=== PATIENT | female | born 1935 | race Hispanic/Latino ===

== ENCOUNTER → 2018-07-28 | Day surgery (SDC) | payer MEDICARE ==
[2018-07-27 10:46] LABS: BASOPHILS # (AUTO) 0.1 (0.0-0.1); BASOPHILS % 0.7 % (0.0-1.0); EOSINOPHILS # (AUTO) 0.5 (0.0-0.4); EOSINOPHILS % 4.9 % (0.0-6.0); HEMATOCRIT 33.7 % (34.2-44.1); HEMOGLOBIN 10.8 g/dL (12.0-16.0); LYMPHOCYTES # (AUTO) 2.5 (1.0-3.2); MEAN CORPUSCULAR HEMOGLOBIN 28.3 pg (28-32); MEAN CORPUSCULAR VOLUME 88.5 fL (81-99); MONOCYTES # (AUTO) 0.7 (0.2-0.8); MONOCYTES % 7.7 % (4.4-11.3); NEUTROPHILS # (AUTO) 5.5 (2.1-6.9); NEUTROPHILS % 59.4 % (38.7-80.0); PLATELET COUNT 304 x10e3/uL (140-360); RED BLOOD COUNT 3.81 x10e6/uL (3.6-5.1)
[2018-07-27 11:08] LABS: ANION GAP 12.2 mmol/L (8-16); BLOOD UREA NITROGEN 17 mg/dL (7-26); BUN/CREATININE RATIO 22 (6-25); CARBON DIOXIDE 27 mmol/L (22-29); CHLORIDE 102 mmol/L (98-107); CREATININE, SERUM 0.78 mg/dL (0.57-1.11); EST GLOMERULAR FILTRATION RATE > 60 ML/MIN (60-); GLUCOSE 98 mg/dL (74-118); POTASSIUM 4.2 mmol/L (3.5-5.1); SODIUM 137 mmol/L (136-145)
--- NOTE | 2018-07-27 11:18 | Diagnostic Imaging Report ---
EXAMINATION: PA and lateral views of the chest. COMPARISON: None CLINICAL HISTORY: Preoperative evaluation, carpal tunnel surgery DISCUSSION: Lines/tubes: None. Lungs: The lungs are well inflated and clear. No pneumonia or pulmonary edema. Pleura: No pleural effusion or pneumothorax. Heart and mediastinum: The cardiomediastinal silhouette is normal. Bones and soft tissues: No acute bony abnormalities. IMPRESSION: No acute cardiopulmonary abnormalities. Signed by: Dr. Frank Higgins M.D. on 07/27/2018 11:15 AM
[~2018-07-28] MED LIST: BUPIVACAINE HCL 0.5% INJ 30 ML VIAL INJ ONE; CEFAZOLIN SOD 1 GM/NS 50ML 50 ML IV ONE; KETOROLAC TROMETHAMINE 30 MG/ML VIAL ONE; LIDOCAINE HCL 2% LOCAL INJ 5 ML SDV VIAL INJ ONE; MUPIROCIN 2% OINT 22 GM TUBE ONE; NITROFURANTOIN50 MG PO; OMEPRAZOLE40 MG PO; ONDANSETRON HCL INJ 2MG/ML 2ML 2 MG/ML VIAL ONE; PHENAZOPYRIDIN100 MG PO; PROPOFOL IV EMULSION 10 MG/ML 20 ML VIAL ONE; SEVOFLURANE INHAL SOLN 250 ML PEN BTL ONE; Z.0.FLUTICASONE PRO1; Z.0.SIMVASTATIN10 MG PO; Z.2.METFORMIN HCL500 PO; [UNRECOGNIZED DRUG - OTHER] PO; [UNRECOGNIZED DRUG - OTHER] PO
--- OUTSIDE RECORDS SUMMARY | 2018-07-28 05:58 | XMS REPORT ---
Author [facility] Address Unknown Phone Unavailable Care Team Providers Care Manager Beauty Name Role Phone ARDEN LANDIN Unavailable Unavailable Problems This patient has no known problems. Allergies, Adverse Reactions, Alerts This patient has no known allergies or adverse reactions. Medications This patient has no known medications. Results Test Description Test Time Test Comments Text Results Atomic Results Result Comments CHEST 2 VIEWS 2018-07-27 11:15:00 [place] [address] Patient Name: ROGELIO GALAN MR #: [id number] : 1935 Age/Sex: 83/F Req #: [id number] [facility] Physician: Ordered by: ARDEN LANDIN MD Report #: [id number] Location: OR Room/Bed: Procedure: [id number] DX/CHEST 2 VIEWS Exam Date: 07/27/18 Exam Time: 1040 REPORT STATUS: Signed EXAMINATION: PA and lateral views of the chest. CO MPARISON: None CLINICAL HISTORY: Preoperative evaluation, carpal tunnel surgery DISCUSSION: Lines/tubes: None. Lungs: The lungs are well inflated and clear. No pneumonia or pulmonary edema. Pleura: No pleural effusion or pneumothorax. Heart and mediastinum: The cardiomediastinal silhouette is normal. Bones and soft tissues: No acute bony abnormalities. IMPRESSION: No acute cardiopulmonary abnormalities. Signed by: Dr. Ortega Grant M.D. on 07/27/2018 11:15 AM Dictated By: ORTEGA GRANT MD 14 Transcribed By: MEIR on 07/27/181114 COPY TO: ARDEN LANDIN MD
[2018-07-28 08:25] VITALS: BP 154/76
--- NOTE | 2018-07-28 18:16 | Operative Report ---
DATE OF PROCEDURE: 07/28/2018 SURGEON: Raymond Fan MD PREOPERATIVE DIAGNOSIS: Left hand carpal tunnel syndrome. POSTOPERATIVE DIAGNOSES: 1. Left hand carpal tunnel syndrome. 2. Flexor tenosynovitis, left wrist. PROCEDURE: 1. Left hand open carpal tunnel release. 2. Flexor tenosynovectomy, left wrist. ANESTHESIA: General. HISTORY: The patient is an 83-year-old with EMG-proven left hand carpal tunnel syndrome. Risks, benefits and alternatives of treatment were discussed with the patient. The patient is prepared to undergo the procedure as outlined. DESCRIPTION OF PROCEDURE: The patient was brought to the operating theater. After the induction of adequate general inhalation anesthesia, the patient was prepped and draped in the supine position. A time out was performed by the entire operating room team. A 2.5 cm incision was marked out in the intrathenar space. The left upper extremity was exsanguinated, and a tourniquet was inflated to a pressure of 250 mmHg. The incision was made through the skin and subcutaneous tissues and all venous tributaries were controlled with bipolar cautery. The incision was deepened through the palmar fascia until the transverse carpal ligament was identified. The ligament was sharply sectioned, taking care to protect and preserve the median nerve underlying it. After the complete width of the ligament had been transected, the distal volar forearm fascia was divided under direct view. Proliferative flexor tenosynovium was noticed to encompass the median nerve and this was radically excised. After performing this maneuver, the nerve was noted to lie adequately decompressed. The wound was copiously irrigated with bacteriostatic saline, closed with 5-0 nylon in an interrupted horizontal mattress fashion. A Marcaine field block was performed at the operative site. Tourniquet was deflated. All of the fingers pinked up nicely and a sterile bulking conforming bandage was applied to the hand and the wrist. A fiberglass splint was fashioned to maintain the wrist in a modest amount of extension. This was held in place with a loosely wrapped Jalen wrap. The patient tolerated the procedure well and was brought to the recovery room in satisfactory condition and discharged with a postoperative instruction sheet as well as a followup appointment. MD AUBREY Zheng/MODL /[id number]
== END | disposition home or self-care (01) ==
LOC: OR 05:56
PROVIDERS: ATTEND Plastic Surgery
DX: I10 Essential (primary) hypertension (principal); E78.5 Hyperlipidemia, unspecified; E11.9 Type 2 diabetes mellitus without complications; Z79.84 Long term (current) use of oral hypoglycemic drugs; Z88.6 Allergy status to analgesic agent; Z91.041 Radiographic dye allergy status; F17.200 Nicotine dependence, unspecified, uncomplicated
CPT/HCPCS: 36415 ×2; 64721; 71046; 80048; 82948; 85025; 93005; J0690; J1885; J2001; J2405; J2704

== ENCOUNTER 2018-09-07 18:21 | Emergency (ER) | payer MEDICARE ==
[~2018-09-07 18:21] MED LIST changes: -BUPIVACAINE HCL 0.5% INJ 30 ML VIAL INJ ONE; -CEFAZOLIN SOD 1 GM/NS 50ML 50 ML IV ONE; -KETOROLAC TROMETHAMINE 30 MG/ML VIAL ONE; -LIDOCAINE HCL 2% LOCAL INJ 5 ML SDV VIAL INJ ONE; -MUPIROCIN 2% OINT 22 GM TUBE ONE; -ONDANSETRON HCL INJ 2MG/ML 2ML 2 MG/ML VIAL ONE; -PROPOFOL IV EMULSION 10 MG/ML 20 ML VIAL ONE; -SEVOFLURANE INHAL SOLN 250 ML PEN BTL ONE
== END 2018-09-07 18:42 | disposition short-term general hospital (02) ==
LOC: ER 18:21
DX: G40.409 Other generalized epilepsy and epileptic syndromes, not intractable, without status epilepticus (principal)

== ENCOUNTER 2018-09-07 18:50 | Emergency (ER) | payer OTHER, MEDICARE | END 2018-09-07 19:30 | disposition left against medical advice (07) | LOC: FSED 18:50 | DX: R69 Illness, unspecified (principal) ==

== ENCOUNTER 2018-10-14 17:19 | Inpatient (IN) | payer MEDICARE, OTHER ==
[~2018-10-14] VITALS: Ht 157.5 cm; Wt 59.9 kg
--- OUTSIDE RECORDS SUMMARY | 2018-10-14 17:24 | XMS REPORT | Continuity of Care Document ---
Author Author [facility] Interface Address Unknown Phone Unavailable Problems Problem Status Onset Date Classification Date Reported Comments Source Medications Medication Details Route Status Patient Instructions Ordering Provider Order Date Source Nitrofurantoin Macrocrystal (Nitrofurantoin) 50 Mg Capsule, 50 Mg Oral Daily Active 07/27/2018 [facility] Phenazopyridine Hcl 100 Mg Tablet, 100 Mg Oral Three Times A Day Active 07/27/2018 [facility] Fluticasone Propionate 16 Gm [place].susp As Needed as needed for Allergy Active [facility] Glipizide (Glipizide Xl) 2.5 Mg Tab.osm.24 Daily Active [facility] Metformin Hcl 500 Mg Tablet Twice A Day Active [facility] Omeprazole 40 Mg Capsule.dr Daily Active [facility] Quinapril Hcl 20 Mg Tablet Daily Active [facility] Simvastatin 10 Mg Tablet Daily Active [facility] Allergies, Adverse Reactions, Alerts Substance Category Reaction Severity Reaction type Status Date Reported Comments Source Iodine HIVES Mild Allergy to Substance Active 11/07/2013 [facility] Ibuprofen LIVER PROBLEMS Mild Allergy to Substance Active 11/07/2013 [facility] Immunizations Immunization Date Given Site Status Last Updated Comments Source Results Order Name Results Value Reference Range Date Interpretation Comments Source Capillary blood glucose measurement by glucometer (mass/volume) 95 70 - 120 07/28/2018 [facility] Blood leukocytes automated count (number/volume) 9.20 4.8 - 10.8 07/27/2018 [facility] Blood erythrocytes automated count (number/volume) 3.81 3.6 - 5.1 07/27/2018 [facility] Blood hemoglobin measurement (moles/volume) 10.8 12.0 - 16.0 07/27/2018 [facility] Automated blood hematocrit (volume fraction) 33.7 34.2 - 44.1 07/27/2018 [facility] Automated erythrocyte mean corpuscular volume 88.5 81 - 99 07/27/2018 [facility] Automated erythrocyte mean corpuscular hemoglobin (mass per erythrocyte) 28.3 28 - 32 07/27/2018 [facility] Automated erythrocyte mean corpuscular hemoglobin concentration measurement (mass/volume) 32.0 31 - 35 07/27/2018 [facility] RDW BldCo-Rto 13.0 11.7 - 14.4 07/27/2018 [facility] Automated blood platelet count (count/volume) 304 140 - 360 07/27/2018 [facility] Automated blood segmented neutrophil count as percentage of total leukocytes 59.4 38.7 - 80.0 07/27/2018 [facility] Automated blood lymphocyte count as percentage ot total leukocytes 27.0 18.0 - 39.1 07/27/2018 [facility] Automated blood monocyte count as percentage of total leukocytes 7.7 4.4 - 11.3 07/27/2018 [facility] Automated blood eosinophil count as percentage of total leukocytes 4.9 0.0 - 6.0 07/27/2018 [facility] Automated blood basophil count as percentage of total leukocytes 0.7 0.0 - 1.0 07/27/2018 [facility] IM GRANULOCYTES % 0.3 0.0 - 1.0 07/27/2018 [facility] Automated blood neutrophil count 5.5 2.1 - 6.9 07/27/2018 [facility] Blood lymphocytes count (number/volume) 2.5 1.0 - 3.2 07/27/2018 [facility] Blood monocytes automated count (number/volume) 0.7 0.2 - 0.8 07/27/2018 [facility] Automated blood eosinophil count 0.5 0.0 - 0.4 07/27/2018 [facility] Automated blood basophil count (count/volume) 0.1 0.0 - 0.1 07/27/2018 [facility] Absolute Immature Granulocyte (auto 0.03 0 - 0.1 07/27/2018 [facility] Serum or plasma sodium measurement (moles/volume) 137 136 - 145 07/27/2018 [facility] Serum or plasma potassium measurement (moles/volume) 4.2 3.5 - 5.1 07/27/2018 [facility] Serum or plasma chloride measurement (moles/volume) 102 98 - 107 07/27/2018 [facility] Serum or plasma carbon dioxide, total measurement (moles/volume) 27 22 - 29 07/27/2018 [facility] Serum or plasma anion gap 12.2 8 - 16 07/27/2018 [facility] Serum or plasma urea nitrogen measurement (mass/volume) 17 7 - 26 07/27/2018 [facility] Serum or plasma creatinine measurement (mass/volume) 0.78 0.57 - 1.11 07/27/2018 [facility] Serum or plasma urea nitrogen/creatinine mass ratio 22 6 - 25 07/27/2018 [facility] Estimated glomerular filtration rate (GFR) determination > 60 60 07/27/2018 [facility] Glucose measurement 98 74 - 118 07/27/2018 [facility] Serum or plasma calcium measurement (mass/volume) 10.0 8.4 - 10.2 07/27/2018 [facility] Vital Signs Vital Sign Value Date Comments Source Encounters Location Location Details Encounter Type Encounter Number Reason For Visit Attending Provider ADM Date DC Date Status Source Registered Surgical Day Care [id number] ARDEN LANDIN MD 07/28/2018 [facility] Departed Emergency Room [id number] RINA SALMON MD 09/07/2018 09/07/2018 [facility] Departed Emergency Room [id number] ОЛЕГ MARTIN MD 09/07/2018 09/07/2018 [facility] Procedures Procedure Code Date Perfomer Comments Source CARPAL TUNNEL SURGERY [id number] 07/28/2018 [facility] X-ray of chest, two views [id number] 07/27/2018 [facility]
[2018-10-14] MEDS ORDERED: SODIUM CHLORIDE 0.9% 500ML 500 ML IV STA (18:08)
[2018-10-14] MEDS ORDERED: ACETAMINOPHEN 325 MG TAB PO ONE (18:15)
[2018-10-14 18:40] LABS: BASOPHILS # (AUTO) 0.1 (0.0-0.1); BASOPHILS % 0.3 % (0.0-1.0); EOSINOPHILS % 0.2 % (0.0-6.0); HEMATOCRIT 31.8 % (34.2-44.1); HEMOGLOBIN 10.4 g/dL (12.0-16.0); LYMPHOCYTES # (AUTO) 1.2 (1.0-3.2); LYMPHOCYTES % 6.3 % (18.0-39.1); MEAN CORPUSCULAR HEMOGLOBIN 28.1 pg (28-32); MEAN CORPUSCULAR HGB CONC 32.7 g/dL (31-35); MEAN CORPUSCULAR VOLUME 85.9 fL (81-99); MONOCYTES # (AUTO) 1.4 (0.2-0.8); MONOCYTES % 7.5 % (4.4-11.3); NEUTROPHILS # (AUTO) 15.7 (2.1-6.9); PLATELET COUNT 257 x10e3/uL (140-360); RED CELL DISTRIBUTION WIDTH 13.4 % (11.7-14.4)
[2018-10-14 18:46] LABS: STREPTOCOCCUS GRP A ANTIGEN NEGATIVE (NEGATIVE)
[2018-10-14 18:47] LABS: INR 1.16; PROTHROMBIN TIME 15.4 seconds (11.9-14.5)
[2018-10-14 18:57] LABS: INFLUENZAE A&B ANTIGEN (RAPID) NEGATIVE (NEGATIVE)
--- NOTE | 2018-10-14 18:58 | Diagnostic Imaging Report ---
History:Fall Comparison studies: None Technique: Axial images were obtained from the skull base to the vertex. Coronal and sagittal images reconstructed from the axial data. Dose modulation, iterative reconstruction, and/or weight based adjustment of the mA/kV was utilized to reduce the radiation dose to as low as reasonably achievable. Intravenous contrast: None Findings: Scalp/skull: No abnormalities. Extra-axial spaces: No masses. No fluid collections. Brain sulci: Mildly prominent. Ventricles: Mild compensatory dilatation. No hydrocephalus. Parenchyma: Subtle hypodensities in the supratentorial white matter are small vessel ischemic changes. No masses, hemorrhage, acute or chronic cortical vascular insults. Sellar/suprasellar region: No abnormalities. Craniocervical junction: Patent foramen magnum. No Chiari one malformation. Incidental findings: Atherosclerotic calcifications in the carotid siphons and right vertebral artery. Impression: No acute abnormalities. Chronic findings: 1. Mild generalized volume loss. 2. Mild supratentorial white matter small vessel ischemic changes. Signed by: Dr. Bradley Coker M.D. on 10/14/2018 6:55 PM
[2018-10-14 19:00] LABS: ALANINE AMINOTRANSFERASE 13 IU/L (0-55); ALBUMIN 3.7 g/dL (3.5-5.0); ALBUMIN/GLOBULIN RATIO 0.9 (0.8-2.0); ALKALINE PHOSPHATASE 65 IU/L (40-150); AMYLASE 78 U/L (25-125); ANION GAP 14.5 mmol/L (8-16); BLOOD UREA NITROGEN 15 mg/dL (7-26); BUN/CREATININE RATIO 17 (6-25); CALCIUM 9.9 mg/dL (8.4-10.2); CARBON DIOXIDE 25 mmol/L (22-29); CHLORIDE 98 mmol/L (98-107); CREATINE KINASE 628 IU/L (29-168); CREATININE, SERUM 0.88 mg/dL (0.57-1.11); EST GLOMERULAR FILTRATION RATE > 60 ML/MIN (60-); GLUCOSE 131 mg/dL (74-118); LIPASE 10 U/L (8-78); POTASSIUM 3.5 mmol/L (3.5-5.1); SODIUM 134 mmol/L (136-145)
[2018-10-14 19:08] LABS: B-TYPE NATRIURETIC PEPTIDE2 93.8 pg/mL (0-100)
--- NOTE | 2018-10-14 19:13 | Diagnostic Imaging Report ---
Frontal and lateral views of the chest. HISTORY: fall, tender to anterior chest wall along costal margins COMPARISON: Chest radiographs July 27, 2018 DISCUSSION: Overlying monitoring leads and other artifacts. Lungs: The lungs are well inflated. No evidence of a consolidative pneumonia or pulmonary alveolar edema. Pleura: No pleural effusion or pneumothorax. Heart and mediastinum: The cardiomediastinal silhouette appears unremarkable. Bones and soft tissues: Diffusely decreased mineralization of the osseous structures limits bone detail. Stable appearing mild accentuation of the thoracic kyphosis and multilevel mild to moderate degenerative changes. Metallic clips in the right upper quadrant of the abdomen are compatible with prior cholecystectomy. IMPRESSION: 1. No acute radiographic abnormality. 2. No significant interval change. 3. Specifically, no evidence of a displaced fracture or pneumothorax. Signed by: Dr. Braulio Bowden D.O., M.M.M. on 10/14/2018 7:09 PM
[2018-10-14 19:54] LABS: CLARITY,URINE CLOUDY (CLEAR); COLOR,URINE STRAW (YELLOW); LEUKOCYTE ESTERASE ,URINE 2+ (NEGATIVE); NITRITE,URINE NEGATIVE (NEGATIVE); PROTEIN,URINE DIPSTICK 2+ (NEGATIVE)
[2018-10-14 19:55] LABS: BILIRUBIN,URINE NEGATIVE (NEGATIVE); KETONES,URINE NEGATIVE (NEGATIVE); URINE UROBILINOGEN 0.2 mg/dL (0.2 - 1)
[2018-10-14] MEDS ORDERED: DIATRIZOATE MEGL/DIATRIZOA SOD 30 ML BTL PO ONE (20:06)
[2018-10-14 20:07] LABS: BACTERIA,URINE MANY /HPF; WBC,URINE (MAN) 21-50 /HPF (0-5)
[2018-10-14] MEDS ORDERED: CEFTRIAXONE SOD 1 GM/NS 50 ML 50 ML IV ONE (20:30)
[2018-10-14] MEDS ORDERED: DEXTROSE 50% SYRINGE 50 ML IV PRN (21:15)
[2018-10-14] MEDS: CEFTRIAXONE SOD 1 GM/NS 50 ML 50 ML IV SCH (21:30)
--- NOTE | 2018-10-14 21:45 | Diagnostic Imaging Report ---
ADDENDUM #1 Addendum to Impression: Mild circumferential bladder wall thickening. No surrounding stranding. Correlate with urinalysis for cystitis. Signed by: Dr. Dusty Buenrostro M.D. on 10/14/2018 9:52 PM ORIGINAL REPORT EXAMINATION: CT of the abdomen and pelvis without contrast. TECHNIQUE: Spiral CT images of the abdomen and pelvis were performed from the lung bases to the lesser trochanters. No intravenous contrast was given due to history of iodine allergy. Oral Gastroview was given. Coronal and sagittal reformatted images were obtained. COMPARISON: None. CLINICAL HISTORY:Abdominal pain, fever since today DISCUSSION: ABSENCE OF INTRAVENOUS CONTRAST DECREASES SENSITIVITY FOR DETECTION OF FOCAL LESIONS AND VASCULAR PATHOLOGY. ABDOMEN/PELVIS: LOWER THORAX: Mild bilateral lower lobe dependent atelectasis. Atherosclerotic calcification of the aortic valve, coronary arteries and thoracic aorta. Moderate hiatal hernia. HEPATOBILIARY: No focal hepatic lesions. No intra or extrahepatic biliary ductal dilation. GALLBLADDER: Cholecystectomy clips SPLEEN: No splenomegaly. PANCREAS: No focal masses or ductal dilatation. Mild pancreatic atrophy ADRENALS: No adrenal nodules. KIDNEYS/URETERS: 2 mm nonobstructing calculus in the right mid to inferior aspect (series 2, image 36). A punctate calcification in the left renal sinus at the interpolar region (series 2, image 31 and coronal image 46) likely represents a nonobstructing calculus and less likely a vascular calcification. No ureteral calculi. No hydronephrosis. Multiple bilateral ill-defined hypodense fluid density lesions, with the largest on the right measuring approximately 2.3 cm in the mid to inferior aspect (coronal image 51), and the largest on the left measuring approximately 3.1 cm (series 2, image 26) in the superior pole, likely representing simple cysts. 0.6 cm hyperdense cortical lesion in the mid posterior right kidney (series 2, image 33), which is to small to characterize but likely represents a hemorrhagic or proteinaceous cyst. No significant perinephric stranding. PELVIC ORGANS/BLADDER: Mild bladder wall thickening. No focal lesions. Uterus is not visualized. No adnexal masses. PERITONEUM/RETROPERITONEUM: No free air or fluid. LYMPH NODES: No intra-abdominal,retroperitoneal, pelvic or inguinal lymphadenopathy. VESSELS: Atherosclerotic calcification of the abdominal aorta and iliac vessels. GI TRACT: No bowel dilation or evidence of obstruction. No pericolonic inflammatory changes. Descending and sigmoid colon diverticulosis, without surrounding inflammatory changes to suggest diverticulitis. Stomach is grossly unremarkable. BONES AND SOFT TISSUES: No evidence of lytic lesions. Generalized osteopenia. Degenerative disc changes in the lower thoracic and lumbosacral spine, worse at L4-L5. Fat-containing left inguinal hernia. IMPRESSION: 1. No acute abdominopelvic abnormalities in this noncontrast exam. 2. 2 mm nonobstructing calculus in the right kidney. Punctate nonobstructing calculus in the left kidney. No ureteral calculi, hydronephrosis or obstruction. 3. Descending and sigmoid colon diverticulosis, without diverticulitis. No bowel dilation or evidence of obstruction.. Signed by: Dr. Dusty Buenrostro M.D. on 10/14/2018 9:42 PM
[2018-10-14] MEDS: SODIUM CHLORIDE 0.9% 1000ML 1,000 ML IV SCH (21:50)
[2018-10-14 21:56] LABS: CLARITY,URINE SL CLOUDY (CLEAR); COLOR,URINE YELLOW (YELLOW)
[2018-10-14 21:57] LABS: BILIRUBIN,URINE NEGATIVE (NEGATIVE); KETONES,URINE NEGATIVE (NEGATIVE); LEUKOCYTE ESTERASE ,URINE 2+ (NEGATIVE); NITRITE,URINE NEGATIVE (NEGATIVE); PROTEIN,URINE DIPSTICK 2+ (NEGATIVE); URINE UROBILINOGEN 0.2 mg/dL (0.2 - 1)
[2018-10-14 22:39] VITALS: BP 142/72
[2018-10-14 22:40] LABS: WBC,URINE (MAN) >50 /HPF (0-5)
[2018-10-14 22:41] LABS: BACTERIA,URINE MANY /HPF; EPITHELIAL CELLS,URINE RARE /LPF; TRANSITIONAL EPI CELLS,URINE FEW
[2018-10-14 22:42] LABS: RBC,URINE 21-50 /HPF (0-5)
[2018-10-14 23:02] VITALS: BP 142/72
[2018-10-14] MEDS: ONDANSETRON HCL INJ 2MG/ML 2ML 2 MG/ML VIAL IV PRN (23:24)
[2018-10-14] MEDS: ACETAMINOPHEN 325 MG TAB PO PRN (23:40)
--- NOTE | 2018-10-14 23:40 | NUR ---
UPON ASSESSMENT OF PATIENT SHE RAN A FEVER OF 100.6. THE PATIENT COMPLAINED OF CHILLS AND BEGAN SHIVERING. PROVIDED THE PATIENT WITH TWO WARM BLANKETS AND GAVE THE PATIENT TYLENOL TO REDUCE THE FEVER. THE PATIENT ALSO PREVIOUSLY FELT NAUSEA AND BEGAN TO VOMIT, PROVIDED ZOFRAN. THE PATIENT IS RESTING COMFORTABLY RIGHT NOW WILL REASSESS THE PATIENT'S CONDITION.
[2018-10-15] VITALS (8 sets, daily range): BP systolic 111–161; BP diastolic 59–74
--- NOTE | 2018-10-15 00:45 | NUR ---
RECHECKED PATIENT'S TEMPERATURE AND THE READING HAD RISEN 102.3 AFTER TAKING TYLENOL. IMMEDIATELY TRIED TO COOL THE PATIENT OFF WITH A COOL SHOWER. DRIED HER OFF COVERED HER IN SHEETS, SUPPLIED THE PATIENT WITH ICE PACKS ON BODY. PATIENT IS NO RESTING, NO LONGER SHIVERING, NO MORE COMPLAINTS OF NAUSEA. CALL LIGHT WITHIN EASY REACH, BED LOCKED AND LOW WILL CONTINUE TO MONITOR AND RECHECK TEMPERATURE.
--- NOTE | 2018-10-15 01:25 | NUR ---
RECHECKED PATIENTS TEMPERATURE, IT NOW READS 97.6. PATIENT IS RESTING COMFORTABLY AND STABLE, NO DISTRESS NOTED, NO LONGER SHIVERING. CALL LIGHT IS WITHIN EASY REACH, WILL CONTINUE TO MONITOR.
--- NOTE | 2018-10-15 04:31 | NUR ---
AFTER REASSESSING THE PATIENT FOR 04:00 VITALS, SHE IS READING A TEMPERATURE OF 97.5. SHE IS RESTING COMFORTABLY WITH EYES CLOSED, NO DISTRESS NOTED. BED LOCKED AND ALARM ACTIVATED, CALL LIGHT WITHIN EASY REACH, WILL CONTINUE TO MONITOR.
[2018-10-15] MEDS: INSULIN REGULAR, HUMAN 100 UNIT/1 ML 3ML VIAL SQ SCH ×4 (07:30→20:06)
[2018-10-15] MEDS: CEFTRIAXONE SOD 1 GM/NS 50 ML 50 ML IV SCH ×2 (08:49→20:18)
[2018-10-15] MEDS: ONDANSETRON HCL INJ 2MG/ML 2ML 2 MG/ML VIAL IV PRN ×2 (10:21→20:18)
--- NOTE | 2018-10-15 10:31 | NUR ---
On bladder scan 610 ml of urine noted.
--- NOTE | 2018-10-15 10:41 | NUR ---
patient tolerated with indwelling Figueroa's catheter, 600ml of urine output noted, figueroa secured well
--- NOTE | 2018-10-15 11:59 | History and Physical ---
CHIEF COMPLAINT: Status post fall, recurrent urinary tract infection, generalized body ache and pain. SUMMARY: The patient is an 83-year-old female, stating that the patient lives by herself. She had recurrent urinary tract infection. The patient had multiple falls at home, came to the hospital with some altered mental status. The patient is otherwise stable at this time. No loss of consciousness. CT scan of the abdomen and pelvis was done, show nonobstructive kidney stone, diverticulosis without any acute findings. No hydronephrosis. The patient also had a CT scan of the brain, there was no injury. The patient move all extremities. She is stable. PAST MEDICAL HISTORY: Dyslipidemia; diabetes type 2, on oral medication; hypertension. Recurrent urinary tract infection. PAST SURGICAL HISTORY: Hysterectomy, back surgery, knee surgery, tonsillectomy, cholecystectomy. SOCIAL HISTORY: The patient stated that she lives by herself. She does not smoke or use alcohol. No recreational drug use. ALLERGIES: IBUPROFEN AND IODINE. HOME MEDICATIONS: List reviewed. REVIEW OF SYSTEMS: Some confusion, but no chest pain, no shortness of breath. Generalized body ache and pain. PHYSICAL EXAMINATION: VITAL SIGNS: Temperature is 97, blood pressure 128/72, pulse rate is 98, respirations 18. GENERAL: The patient is not in acute distress. She is awake. HEENT: Normocephalic, atraumatic. Anicteric. NECK: Supple grossly. PULMONARY: Clear. CARDIOVASCULAR: Regular rate and rhythm. ABDOMEN: Soft. Some discomfort in the suprapubic area, possible urinary retention. EXTREMITIES: No cyanosis or edema. NEUROLOGIC: Moving all extremities, some confusion, without any focal deficit. LABORATORY DATA: Sodium is 134, potassium 3.5, chloride 98, bicarb 25, BUN 15, creatinine 0.8, glucose 131. CK is 628. WBC is 18.5, hemoglobin 10.4, hematocrit 31.8, and platelets is 257. CT scan of abdomen and pelvis, no acute finding. Nonobstructive kidney stone. Renal cyst. Diverticulosis. IMPRESSION: 1. Sepsis with urinary tract infection with altered mental status, status post fall, possible urinary retention. 2. Leukocytosis and fever. 3. Mild rhabdomyolysis, most likely from the fall. PLAN: Continue with IV antibiotics, IV fluids. Urinary bladder scan and possible Baron catheter. Consultation with Dr. Neal Ayala. PT/OT. Continue with some of the home medication. We will repeat the patient's lab work in the morning. Continue IV fluids for now. MD DESIRAE Toribio/ANAHI /[id number] cc: John Dowd
[2018-10-15] MEDS: ACETAMINOPHEN 325 MG TAB PO PRN ×2 (12:09→20:18)
--- NOTE | 2018-10-15 19:00 | NUR ---
received report from day nurse. patient is resting in bed. denies pain or discomfort. daughter is by the patient's bedside. patient has an indwelling catheter. figueroa is patient and urine is flowing. will continue to monitor patient's care.
--- NOTE | 2018-10-15 20:00 | NUR ---
patient's temperature is 101.7. will medicate patient with tylenol.
[2018-10-15] MEDS: SODIUM CHLORIDE 0.9% 1000ML 1,000 ML IV SCH ×2 (20:02→23:49)
[2018-10-15] MEDS: SIMVASTATIN 20 MG TAB PO SCH (20:18)
--- NOTE | 2018-10-15 22:45 | NUR ---
patient's temperature has been re-assessed and found to be 96.5. patient denies any discomfort. will continue to monitor patient's temperature.
--- NOTE | 2018-10-15 23:01 | Consultation ---
DATE OF CONSULTATION: 10/15/2018 Urology Consultation REASON FOR CONSULTATION: Recurrent urinary tract infections and urinary retention. HISTORY OF PRESENT ILLNESS: Leonela New is an 83-year-old woman with recurrent urinary tract infections. The patient presented to the hospital, was evaluated. A Baron catheter was placed. Due to the fact that immediately post void, she was found to be in urinary retention for 600 mL. The patient reports she has had a previous pelvic mesh procedure done by an urologist and she does have both urge and stress type urinary incontinence. The patient is not sure if she has ever had a kidney stone. She thinks she may have had one in the past. PAST MEDICAL AND SURGICAL HISTORY: 1. Status post open bilateral tubal ligation. 2. Status post total vaginal hysterectomy. 3. Status post multiple surgeries and they are orthopedic in nature involving the ankles, knees, and back. 4. Status post bilateral eye surgery. 5. Status post nose surgery. 6. Status post tonsillectomy. 7. Status post cholecystectomy. 8. Diabetes mellitus. 9. Dyslipidemia. 10. Hypertension. SOCIAL HISTORY: The patient does smoke, but has cut down. She is retired from doing [employer] and [employer]. She denies ethanol or drug use. She has supportive family at the bedside. ALLERGIES: IBUPROFEN AND IODINE. CURRENT MEDICATIONS: Please refer to the MAR. REVIEW OF SYSTEMS: Consistent with above history of present illness and past medical history, otherwise negative for all systems. FAMILY HISTORY: Noncontributory to the active urological problems. PHYSICAL EXAMINATION: GENERAL: A pleasant elderly woman, lying in bed, in no apparent distress. She is currently afebrile. VITAL SIGNS: Currently stable. ABDOMEN: Soft, nondistended, nontender without costovertebral angle tenderness. Kidneys are not palpable without hepatosplenomegaly. No obvious evidence of hernia. GENITOURINARY: There is a Baron catheter in place draining clear urine out. For the remaining physical examination systems, please refer to the admission history and physical on the chart. LABORATORY STUDIES: Urine cultures, one that is listed as "random" another one listed as catheterized, both show gram-negative bacilli. White blood cell count is elevated at 18,510, hemoglobin is low at 10.4, and platelets are normal at 257,000. The patient's sodium is low at 134. Her creatinine is normal at 0.88. Urinalysis significant for pyuria and microhematuria. There were many bacteria on both samples and no significant epithelial cells. CT scan of the abdomen and pelvis was amended, it does show mild circumferential bladder wall thickening and urinalysis was recommended by the radiologist. There was a 2 mm nonobstructing stone in the right to mid inferior aspect of the kidneys and a punctate calcification in the left renal sinus as well. There is no hydronephrosis. There are multiple lesions consistent with renal cysts. ASSESSMENT: 1. Urinary retention for 600 mL. 2. Complicated urinary tract infections. 3. Mixed type urinary incontinence. 4. History of urolithiasis. 5. Current urolithiasis that is small in nature. 6. Leukocytosis. 7. Anemia. 8. Hyponatremia. 9. Microhematuria. 10. Renal cyst. 11. Baron catheter in situ. PLAN: 1. The patient needs to be admitted as an inpatient due to the fact that it will take at least two days for final urine culture to return. 2. I will order a recheck of her blood chemistries and hematological profile. 3. I defer the hematological and electrolyte abnormalities to the admitting physician. 4. The patient needs to be discharged with a Baron catheter in place. I instructed the nurse to teach the patient and the family how to change the leg bag and bedside bag. Once the patient is discharged, she needs to follow up for an urodynamic study. Additional testing including cystoscopic examination will most likely be in order. Thank you very much for involving us in the care of your patient. We will be happy to follow her along with you as well as an outpatient. Neal Ayala MD [place]/MODL /[id number] cc: John Dowd
[2018-10-16] VITALS (9 sets, daily range): BP systolic 109–163; BP diastolic 55–83
[2018-10-16 06:07] LABS: ANION GAP 10.4 mmol/L (8-16); BLOOD UREA NITROGEN 13 mg/dL (7-26); BUN/CREATININE RATIO 16 (6-25); CARBON DIOXIDE 24 mmol/L (22-29); CHLORIDE 100 mmol/L (98-107); CREATININE, SERUM 0.81 mg/dL (0.57-1.11); EST GLOMERULAR FILTRATION RATE > 60 ML/MIN (60-); GLUCOSE 106 mg/dL (74-118); POTASSIUM 3.4 mmol/L (3.5-5.1); SODIUM 131 mmol/L (136-145)
[2018-10-16] MEDS: ACETAMINOPHEN 325 MG TAB PO PRN ×3 (06:07→19:34)
--- NOTE | 2018-10-16 06:56 | NUR ---
report given to day nurse. patient is resting in bed. bed is in lowest position and call house is within reach. will continue to monitor patient.
[2018-10-16] MEDS: INSULIN REGULAR, HUMAN 100 UNIT/1 ML 3ML VIAL SQ SCH ×4 (07:30→21:00)
[2018-10-16 07:40] LABS: BASOPHILS % 0.2 % (0.0-1.0); EOSINOPHILS # (AUTO) 0.1 (0.0-0.4); EOSINOPHILS % 0.6 % (0.0-6.0); HEMATOCRIT 27.8 % (34.2-44.1); HEMOGLOBIN 9.1 g/dL (12.0-16.0); LYMPHOCYTES % 5.4 % (18.0-39.1); MEAN CORPUSCULAR HEMOGLOBIN 28.3 pg (28-32); MEAN CORPUSCULAR HGB CONC 32.7 g/dL (31-35); MEAN CORPUSCULAR VOLUME 86.6 fL (81-99); MONOCYTES # (AUTO) 1.1 (0.2-0.8); MONOCYTES % 5.8 % (4.4-11.3); NEUTROPHILS # (AUTO) 16.2 (2.1-6.9); NEUTROPHILS % 87.2 % (38.7-80.0); PLATELET COUNT 234 x10e3/uL (140-360); RED BLOOD COUNT 3.21 x10e6/uL (3.6-5.1); RED CELL DISTRIBUTION WIDTH 13.5 % (11.7-14.4)
--- NOTE | 2018-10-16 07:47 | NUR ---
Dr Ventura notified of ESBL urine. will visit patient. Isolation contact initiated.
[2018-10-16] MEDS ORDERED: PANTOPRAZOLE SOD 40 MG TABEC PO SCH (09:00)
[2018-10-16] MEDS: CEFTRIAXONE SOD 1 GM/NS 50 ML 50 ML IV SCH (09:01)
[2018-10-16] MEDS: QUINAPRIL HCL 20 MG TAB PO SCH (09:01)
[2018-10-16] MEDS: SODIUM CHLORIDE 0.9% 1000ML 1,000 ML IV SCH ×2 (09:39→21:21)
[2018-10-16 10:11] LABS: ANISOCYTOSIS SLIGHT; HYPOCHROMASIA MODERATE; LYMPHOCYTES % (MANUAL) 5 % (19-48); MONOCYTES % (MANUAL) 6 % (3.4-9.0); NEUTROPHILS % (MANUAL) 89 % (40-74); PLATELET ESTIMATE ADEQUATE; PLATELET MORPHOLOGY COMMENT NORMAL; RBC MORPHOLOGY COMMENT NORMAL
[2018-10-16] MEDS ORDERED: POTASSIUM CHLORIDE 10MEQ EA PO NR (10:30)
--- NOTE | 2018-10-16 11:12 | NUR ---
Unit of PRBC's started and no reaction in first 15 min. will monitor status closely.
[2018-10-16] MEDS: MEROPENEM 1GM 100 ML IV SCH ×2 (11:51→17:04)
[2018-10-16] MEDS ORDERED: ONDANSETRON HCL 4 MG ORAL DISINTEGRATING TAB PO PRN (14:15)
[2018-10-16] MEDS: SIMVASTATIN 20 MG TAB PO SCH (21:20)
[2018-10-17] MEDS: MEROPENEM 1GM 100 ML IV SCH ×3 (01:01→17:33)
[2018-10-17] MEDS: ACETAMINOPHEN 325 MG TAB PO PRN ×2 (04:02→17:33)
[2018-10-17 04:24] VITALS: BP 165/77
[2018-10-17 05:35] LABS: BASOPHILS % 0.2 % (0.0-1.0); EOSINOPHILS % 0.4 % (0.0-6.0); HEMATOCRIT 26.8 % (34.2-44.1); HEMOGLOBIN 8.6 g/dL (12.0-16.0); LYMPHOCYTES # (AUTO) 0.9 (1.0-3.2); LYMPHOCYTES % 8.6 % (18.0-39.1); MEAN CORPUSCULAR HEMOGLOBIN 27.9 pg (28-32); MEAN CORPUSCULAR HGB CONC 32.1 g/dL (31-35); MONOCYTES # (AUTO) 0.7 (0.2-0.8); NEUTROPHILS # (AUTO) 8.6 (2.1-6.9); NEUTROPHILS % 83.2 % (38.7-80.0); PLATELET COUNT 224 x10e3/uL (140-360); RED BLOOD COUNT 3.08 x10e6/uL (3.6-5.1); RED CELL DISTRIBUTION WIDTH 13.6 % (11.7-14.4)
[2018-10-17 06:00] LABS: ANION GAP 10.2 mmol/L (8-16); BLOOD UREA NITROGEN 12 mg/dL (7-26); BUN/CREATININE RATIO 18 (6-25); CALCIUM 8.7 mg/dL (8.4-10.2); CARBON DIOXIDE 23 mmol/L (22-29); CHLORIDE 105 mmol/L (98-107); CREATININE, SERUM 0.68 mg/dL (0.57-1.11); EST GLOMERULAR FILTRATION RATE > 60 ML/MIN (60-); GLUCOSE 103 mg/dL (74-118); POTASSIUM 3.2 mmol/L (3.5-5.1); SODIUM 135 mmol/L (136-145)
[2018-10-17] MEDS: INSULIN REGULAR, HUMAN 100 UNIT/1 ML 3ML VIAL SQ SCH ×4 (07:30→20:47)
[2018-10-17 07:58] VITALS: BP 160/68
[2018-10-17] MEDS: PANTOPRAZOLE SOD 40 MG TABEC PO SCH (08:50)
[2018-10-17] MEDS: QUINAPRIL HCL 20 MG TAB PO SCH (08:50)
--- NOTE | 2018-10-17 09:03 | NUR ---
patient transferred to floor room 212. report called. all personal belongings with patient. vitasl stable with no distress at time of transfer.
--- NOTE | 2018-10-17 09:05 | NUR ---
received pt via wheelchair from room 177. denies pain, resp even and unlabored. no acute distress noted. transferred to bed with supervision. oriented to room and use of call light. 16Fr figueroa cath in place and hung below waist, patent, free of kinks and draining cloudy yellow urine. bed in lowest and locked position. call light placed within reach and encouraged to use call light to call for assistance
[2018-10-17] MEDS ORDERED: POTASSIUM CHLORIDE 10MEQ EA PO ONE (09:30)
[2018-10-17 12:59] VITALS: BP 138/63
[2018-10-17] MEDS: SODIUM CHLORIDE 0.9% 1000ML 1,000 ML IV SCH (13:55)
[2018-10-17 16:28] VITALS: BP 152/66
[2018-10-17 20:00] VITALS: BP 133/65
[2018-10-17] MEDS: SIMVASTATIN 20 MG TAB PO SCH (20:40)
[2018-10-17 21:51] VITALS: BP 133/65
[2018-10-18] VITALS (9 sets, daily range): BP systolic 153–166; BP diastolic 69–77
[2018-10-18] MEDS: MEROPENEM 1GM 100 ML IV SCH ×3 (02:12→17:10)
[2018-10-18] MEDS: SODIUM CHLORIDE 0.9% 1000ML 1,000 ML IV SCH ×2 (03:14→18:29)
[2018-10-18 06:00] LABS: ANION GAP 10.5 mmol/L (8-16); BLOOD UREA NITROGEN 8 mg/dL (7-26); BUN/CREATININE RATIO 13 (6-25); CARBON DIOXIDE 25 mmol/L (22-29); CHLORIDE 105 mmol/L (98-107); CREATININE, SERUM 0.64 mg/dL (0.57-1.11); EST GLOMERULAR FILTRATION RATE > 60 ML/MIN (60-); GLUCOSE 97 mg/dL (74-118); POTASSIUM 3.5 mmol/L (3.5-5.1); SODIUM 137 mmol/L (136-145)
[2018-10-18] MEDS: INSULIN REGULAR, HUMAN 100 UNIT/1 ML 3ML VIAL SQ SCH ×4 (07:30→21:00)
--- NOTE | 2018-10-18 07:30 | NUR ---
REC'D PT AAOX3, PT ON RA, ASSISTED PT TO SIT ON SIDE OF BED FOR BREAKFAST. HILARIO IS IN PLACE. URINE IS CLEAR YELLOW. IV FLUIDS RUNNING. NO S/S OF DISTRESS. IV IS CLEAN AND INTACT WITHOUT ANY COMPLICATIONS. BED IS IN LOWEST POSITION, SIDE RAILS UP X2, AND CALL ANDRADE WITHIN REACH.
--- NOTE | 2018-10-18 07:35 | NUR ---
PT ORAL TEMPERATURE IS 100.4 F. RECHECKED TEMPERATURE WITH TEMPORAL THERMOMETER AND TEMP WAS 98.8 F.
[2018-10-18] MEDS: PANTOPRAZOLE SOD 40 MG TABEC PO SCH (08:56)
[2018-10-18] MEDS: QUINAPRIL HCL 20 MG TAB PO SCH (08:56)
--- NOTE | 2018-10-18 13:00 | NUR ---
PROVIDED HILARIO CARE EDUCATION TO PT. PT VERBALIZED THAT SHE UNDERSTOOD HOW TO CLEAN HILARIO.
--- NOTE | 2018-10-18 16:30 | NUR ---
PT TEMPERATURE 100.0 F ORAL. RECHECKED IT WAS 98.7 F. NO S/S OF DISTRESS. BED IN LOWEST POSITION, SIDE RAILS UP X2, AND CALL ANDRADE WITHIN REACH.
--- NOTE | 2018-10-18 18:10 | NUR ---
PT IS RESTING IN BED, ON RA, HILARIO IN PLACE AND INTACT. IV FLUIDS RUNNING AND NO COMPLICATIONS TO IV SITE. DAUGHTER AT BEDSIDE. NO S/S OF DISTRESS. SIDE RAILS UP X2, BED IN LOWEST POSITION, AND CALL ANDRADE WITHIN REACH.
[2018-10-18] MEDS: SIMVASTATIN 20 MG TAB PO SCH (21:00)
--- NOTE | 2018-10-18 22:36 | NUR ---
RECEIVED PT IN BED AOX3 .FAMILY AT THE BESIDE .DENIES PAIN ..NO ACUTE DISTRESS NOTED CALL LIGHT WITH IN REACH .CONTINUE TO MONITOR.
[2018-10-19] VITALS (7 sets, daily range): BP systolic 130–169; BP diastolic 62–75
[2018-10-19] MEDS: MEROPENEM 1GM 100 ML IV SCH ×3 (02:00→18:01)
[2018-10-19 06:16] LABS: ANION GAP 9.3 mmol/L (8-16); BLOOD UREA NITROGEN 8 mg/dL (7-26); BUN/CREATININE RATIO 12 (6-25); CALCIUM 8.8 mg/dL (8.4-10.2); CARBON DIOXIDE 28 mmol/L (22-29); CHLORIDE 103 mmol/L (98-107); CREATININE, SERUM 0.65 mg/dL (0.57-1.11); EST GLOMERULAR FILTRATION RATE > 60 ML/MIN (60-); GLUCOSE 92 mg/dL (74-118); POTASSIUM 3.3 mmol/L (3.5-5.1); SODIUM 137 mmol/L (136-145)
--- NOTE | 2018-10-19 06:21 | NUR ---
PT RESTING DENIES PAIN .NO ACUTE DISTRESS NOTED .CALL LIGHT WITH IN REACH
[2018-10-19 06:22] LABS: BASOPHILS % 0.4 % (0.0-1.0); EOSINOPHILS # (AUTO) 0.2 (0.0-0.4); HEMATOCRIT 26.2 % (34.2-44.1); HEMOGLOBIN 8.4 g/dL (12.0-16.0); LYMPHOCYTES # (AUTO) 1.6 (1.0-3.2); LYMPHOCYTES % 28.7 % (18.0-39.1); MEAN CORPUSCULAR HEMOGLOBIN 27.7 pg (28-32); MEAN CORPUSCULAR HGB CONC 32.1 g/dL (31-35); MEAN CORPUSCULAR VOLUME 86.5 fL (81-99); MONOCYTES # (AUTO) 0.7 (0.2-0.8); MONOCYTES % 12.4 % (4.4-11.3); NEUTROPHILS # (AUTO) 3.1 (2.1-6.9); PLATELET COUNT 279 x10e3/uL (140-360); RED BLOOD COUNT 3.03 x10e6/uL (3.6-5.1); RED CELL DISTRIBUTION WIDTH 13.8 % (11.7-14.4)
--- NOTE | 2018-10-19 07:18 | NUR ---
BEDSIDE REPORT GIVEN TO THE ON COMING NURSE .
[2018-10-19] MEDS: INSULIN REGULAR, HUMAN 100 UNIT/1 ML 3ML VIAL SQ SCH ×4 (07:30→21:00)
[2018-10-19] MEDS ORDERED: POTASSIUM CHLORIDE 10MEQ EA PO NR (09:30)
[2018-10-19] MEDS: PANTOPRAZOLE SOD 40 MG TABEC PO SCH (09:36)
[2018-10-19] MEDS: QUINAPRIL HCL 20 MG TAB PO SCH (09:36)
[2018-10-19] MEDS: METFORMIN HCL 500 MG TAB PO SCH (12:23)
[2018-10-19] MEDS: GLIPIZIDE 2.5 MG TABCR PO SCH (12:23)
[2018-10-19 13:48] LABS: EOSINOPHILS % (MANUAL) 3 % (0-7); LYMPHOCYTES % (MANUAL) 21 % (19-48); MONOCYTES % (MANUAL) 11 % (3.4-9.0); NEUTROPHILS % (MANUAL) 62 % (40-74)
[2018-10-19 13:49] LABS: ANISOCYTOSIS SLIGHT; HYPOCHROMASIA MODERATE; PLATELET ESTIMATE ADEQUATE; PLATELET MORPHOLOGY COMMENT NORMAL; RBC MORPHOLOGY COMMENT NORMAL
--- NOTE | 2018-10-19 19:32 | NUR ---
Patient received sitting up in bed. Family at bedside. AAO x 3. Patient had no complaints of pain. Respirations even and non-labored. Baron catheter draining pale clear yellow urine. Fall precautions implemented. Patient instructed to call for assistance when needed. Call light within reach.
--- NOTE | 2018-10-19 19:55 | NUR ---
PICC line placement initiated.
--- NOTE | 2018-10-19 20:30 | NUR ---
PICC line placement completed. Patient tolerated well. Awaiting Chest X-Ray for line placement.
--- NOTE | 2018-10-19 21:12 | Diagnostic Imaging Report ---
Examination: Single AP view of the chest. COMPARISON: None. INDICATION: PICC line placement DISCUSSION: Lines/tubes: Right PICC line with tip over the SVC. Lungs: The lungs are well inflated and clear. No pneumonia or pulmonary edema. Pleura: No pleural effusion or pneumothorax. Heart and mediastinum: The heart and the mediastinum are unremarkable. Bones and soft tissues: No acute bony abnormalities. IMPRESSION: 1. Right PICC line with tip over the SVC. Signed by: Dr. Frank Higgins M.D. on 10/19/2018 9:09 PM
[2018-10-19] MEDS: SIMVASTATIN 20 MG TAB PO SCH (21:51)
[2018-10-20] VITALS (9 sets, daily range): BP systolic 132–176; BP diastolic 61–72
--- NOTE | 2018-10-20 01:20 | Consultation ---
DATE OF CONSULTATION: REASON FOR CONSULTATION: UTI, sepsis on admission. HISTORY OF PRESENT ILLNESS: This patient who is a very pleasant 83-year-old Turkmen female, who lives by herself with history of recurrent UTI before. The patient comes in with fever, chills, altered mental status, not doing well. The patient had a CAT scan of the abdomen and pelvis showed that there is nonobstructive kidney stone and diverticulosis. No acute finding. She was started on IV antibiotic. She is telling me when she first came, the urine was thick and yellow, now it is clear. She is telling me when she first came in, she was quite sick and now she is feeling better. The patient was currently saying there is no pain, there is no urgency, no frequency, but when she first came she was telling me she was quite sick. The patient was admitted on October 15, 2018. PAST MEDICAL HISTORY: Dyslipidemia, diabetes mellitus, hypertension and recurrent UTI. PAST SURGICAL HISTORY: Hysterectomy, back surgery, knee surgery and tonsillectomy. SOCIAL HISTORY: There is no smoking, drug abuse, or alcohol abuse. Lived by herself. FAMILY HISTORY: Noncontributory. ALLERGIES: IBUPROFEN. REVIEW OF SYSTEMS: HEENT: There is no headache, visual changes or hearing changes. GI: There is no nausea, no vomiting, no diarrhea. CARDIAC: There is no arrhythmia. NEURO: No seizure activity. SKIN: There is no other rash. : Currently, she has a catheter. The patient was started on meropenem and she is feeling better. HOME MEDICATIONS: She is on Glucophage 500 mg p.o. daily, glipizide 2.5 daily, insulin, Protonix, Zocor, Tylenol. LABORATORY DATA: Her cultures of urine showing E. coli ESBL. When she first came white count was 18.5, came down to 5.56, hemoglobin of 10 and hematocrit 31. Her sodium is 137, potassium is 3.73, creatinine 0.65. She is currently on meropenem as mentioned above. PHYSICAL EXAMINATION: GENERAL: She is currently alert, oriented, does not seem to be in acute distress. There is no fever. VITAL SIGNS: Her T-max 100.4. When she first came, she was doing 101.7. HEENT: Normocephalic, not icteric. NECK: Supple. CHEST: Clear. HEART: S1, S2. No murmur. ABDOMEN: Soft. Bowel sounds present. No tenderness. EXTREMITIES: No edema. IMPRESSION: Sepsis present on admission, urinary tract infection, pyelonephritis, E. coli ESBL. I would recommend to finish 14 days of antibiotic. Would need a PICC line. Meropenem 1 g IV q.8 push p.o. fluids. After finishing the course of treatment, we will see the patient in the office, so discussed about maneuvers and medical treatment to reduce the frequency of UTI. Other medical problems as above. We will follow. MD ITZ Gold/ANAHI /[id number]
[2018-10-20] MEDS: MEROPENEM 1GM 100 ML IV SCH ×3 (01:46→17:49)
--- NOTE | 2018-10-20 01:58 | NUR ---
Patient's blood pressure elevated (170/72); HR (75). Dr. Cristiana Ventura paged. Awaiting call back.
--- NOTE | 2018-10-20 04:05 | NUR ---
Dr. Ventura made aware of elevated BP of patient. No new order received.
--- NOTE | 2018-10-20 07:06 | NUR ---
Patient resting comfortably. Shift report given to oncoming nurse about patient status.
[2018-10-20] MEDS: INSULIN REGULAR, HUMAN 100 UNIT/1 ML 3ML VIAL SQ SCH ×4 (07:30→21:00)
[2018-10-20] MEDS: METFORMIN HCL 500 MG TAB PO SCH (08:41)
[2018-10-20] MEDS: GLIPIZIDE 2.5 MG TABCR PO SCH (08:41)
[2018-10-20] MEDS: QUINAPRIL HCL 20 MG TAB PO SCH (08:43)
[2018-10-20] MEDS: PANTOPRAZOLE SOD 40 MG TABEC PO SCH (08:43)
--- NOTE | 2018-10-20 08:57 | NUR ---
CM SPOKE TO PATIENT AT BEDSIDE REGARDING HOME IV INFUSION ORDERS. PATIENT AWARE AND VERBALLY AGREES TO RECEIVE IV ABX THERAPY IN THE HOME. PATIENT RECEIVES CHOICES FOR IN NETWORK AND OUT OF NETWORK INFUSION COMPANIES. PATIENT CHOSE IN NETWORK [facility] AT THIS TIME. CHOICE LETTER SIGNED AND PLACED IN CHART. CLINICAL SENT TO [facility]. PENDING ACCEPTANCE AND SET UP WITH HOME HEALTH COMPANY FOR DISCHARGE. [facility] (P) [phone] (F) [phone] PENDING HOME HEALTH TO SERVICE WITH INFUSION COMPANY.
[2018-10-20] MEDS ORDERED: METFORMIN HCL 500 MG PO SCH (09:00)
--- NOTE | 2018-10-20 17:00 | NUR ---
Spoke to Nati at [facility], she said everything has been arranged on their end and from their standpoint they are ready for patient. Home health nurse to see patient tomorrow for antibiotic teaching. Called Dr. Ventura to let him know everything has been arranged and see if patient can discharge home today. Per Dr. Ventura: he will discharge patient tomorrow morning 10/21/18. Patient updated on POC.
[2018-10-20] MEDS: SIMVASTATIN 20 MG TAB PO SCH (18:32)
[2018-10-20] MEDS: ACETAMINOPHEN 325 MG TAB PO PRN (18:45)
--- NOTE | 2018-10-20 19:20 | NUR ---
Patient received sitting up in bed. Friend at bedside. AAO x 3. No acute distress noted. Call light within reach.
[2018-10-21] VITALS: BP 168/73
[2018-10-21] MEDS: MEROPENEM 1GM 100 ML IV SCH ×3 (01:43→17:03)
[2018-10-21 04:00] VITALS: BP 159/69
--- NOTE | 2018-10-21 07:00 | NUR ---
BEDSIDE SHIFT REPORT RECEIVED FROM NIGHT RN. PT DENIES NEEDS AT THIS TIME.
--- NOTE | 2018-10-21 07:17 | NUR ---
Walking rounds done. Patient resting comfortably. Shift report given to oncoming nurse.
[2018-10-21] MEDS: INSULIN REGULAR, HUMAN 100 UNIT/1 ML 3ML VIAL SQ SCH ×3 (07:30→16:30)
[2018-10-21 08:10] VITALS: BP 147/75
[2018-10-21] MEDS: METFORMIN HCL 500 MG TAB PO SCH (08:18)
[2018-10-21] MEDS: GLIPIZIDE 2.5 MG TABCR PO SCH (08:18)
[2018-10-21] MEDS: PANTOPRAZOLE SOD 40 MG TABEC PO SCH (08:18)
[2018-10-21] MEDS: QUINAPRIL HCL 20 MG TAB PO SCH (08:18)
[2018-10-21 09:00] VITALS: BP 147/75
[2018-10-21 12:51] VITALS: BP 141/65
[2018-10-21 15:50] VITALS: BP 156/65
--- NOTE | 2018-10-22 06:27 | Discharge Summary ---
PRIMARY CARE PHYSICIAN: Dr. John Dowd. CONSULTANTS: 1. Neal Ayala MD. 2. Emili Arzate MD. FINAL DIAGNOSES: 1. Complicated urinary tract infection with ESBL with recurrent urinary tract infection secondary to a neurogenic urinary bladder with urinary retention. 2. Rhabdomyolysis, resolved. 3. Electrolyte disorder, resolved and corrected. 4. She had sepsis without shock on admission. Toxic encephalopathy on admission, resolved. 5. Urinary retention with neurogenic urinary bladder. SUMMARY: The patient is an 83-year-old female with recurrent urinary tract infection. The patient came in this time with urinary retention, Baron catheter placed. The patient has significant infection causing significant altered mental status with toxic encephalopathy, which subsequently resolved from treating the infection. She has sepsis without any shock on admission. The patient with recurrent urinary tract infection and consultation with Dr. Neal Ayala. The patient's Baron catheter placed. Urine culture grew out to be ESBL complicated UTI. The patient is subsequently placed on meropenem. She is doing much better. She has had a white cell count leukocytosis from the infection, but now resolved. WBC is 5.5. The patient does have prolonged anemia secondary to her infection. There was no sign of bleeding. The patient is stable and discharged home with meropenem. Arrangement was made with caseworker and along with that the patient to follow up with Dr. Arzate on consult. The patient is stable. The patient will go home with a Baron with a leg bag. She will follow up with Dr. Neal Ayala and Dr. Arzate within one week. The patient is stable and discharged home today. MD DESIRAE Toribio/MODL /[id number]
== END 2018-10-21 18:39 | disposition home or self-care (01) | DRG 871 ==
LOC: ER 17:19 → ERHOLD 21:27 → IMCU 22:15 → OBSVTOIN 10-15 09:14 → MED/SURG2 10-17 09:10
PROVIDERS: ADMIT Internal Medicine; ATTEND Internal Medicine
PROC: 02HV33Z Insertion of Infusion Device into Superior Vena Cava, Percutaneous Approach (ICD-10-PCS; principal; 2018-10-19)
DX: A41.9 Sepsis, unspecified organism (principal); G92 Toxic encephalopathy; E87.1 Hypo-osmolality and hyponatremia; N10 Acute pyelonephritis; R29.6 Repeated falls; T79.6XXA Traumatic ischemia of muscle, initial encounter; W07.XXXA Fall from chair, initial encounter; Z88.6 Allergy status to analgesic agent; Z91.041 Radiographic dye allergy status; I10 Essential (primary) hypertension; E11.9 Type 2 diabetes mellitus without complications; E78.5 Hyperlipidemia, unspecified; Z82.49 Family history of ischemic heart disease and other diseases of the circulatory system; Z79.84 Long term (current) use of oral hypoglycemic drugs; Z87.440 Personal history of urinary (tract) infections; F17.210 Nicotine dependence, cigarettes, uncomplicated; R33.9 Retention of urine, unspecified; N39.46 Mixed incontinence; Z87.442 Personal history of urinary calculi; N20.9 Urinary calculus, unspecified; D64.9 Anemia, unspecified; N28.1 Cyst of kidney, acquired; B96.20 Unspecified Escherichia coli [E. coli] as the cause of diseases classified elsewhere; Z16.12 Extended spectrum beta lactamase (ESBL) resistance; R31.29 Other microscopic hematuria; K21.9 Gastro-esophageal reflux disease without esophagitis; R53.81 Other malaise; N31.9 Neuromuscular dysfunction of bladder, unspecified
CPT/HCPCS: 36415; 36569; 70450; 71045; 71046; 74176; 80048; 80053; 81001; 82150; 82550; 82553; 82948; 83518; 83605; 83690; 83735; 83880; 84484; 85025; 85610; 85730; 87070; 87086; 87186; 87400; 93005; 99284; G0378; J0696; J2405; J7030

== ENCOUNTER 2018-10-30 19:28 | Emergency (ER) | payer MEDICARE ==
[~2018-10-30] VITALS: Ht 157.5 cm; Wt 59.9 kg
== END 2018-10-30 20:27 | disposition home or self-care (01) ==
LOC: ER 19:28
DX: R10.2 Pelvic and perineal pain (principal); R33.9 Retention of urine, unspecified; N30.90 Cystitis, unspecified without hematuria
CPT/HCPCS: 51700; 99282

== ENCOUNTER 2018-11-03 16:10 | Emergency (ER) | payer MEDICARE ==
[~2018-11-03] VITALS: Ht 157.5 cm; Wt 54.4 kg
--- OUTSIDE RECORDS SUMMARY | 2018-11-03 16:14 | XMS REPORT | Continuity of Care Document ---
Author Author [facility] Interface Address Unknown Phone Unavailable Problems Problem Status Onset Date Classification Date Reported Comments Source Rhabdomyolysis Active Problem 10/31/2018 [facility] UTI Active Problem 10/31/2018 [facility] Medications Medication Details Route Status Patient Instructions Ordering Provider Order Date Source Nitrofurantoin Macrocrystal (Nitrofurantoin) 50 Mg Capsule, 50 Mg Oral Daily Active 07/27/2018 [facility] Phenazopyridine Hcl 100 Mg Tablet, 100 Mg Oral Three Times A Day Active 07/27/2018 [facility] Fluticasone Propionate 16 Gm [place].susp As Needed as needed for Allergy Active [facility] Glipizide (Glipizide Xl) 2.5 Mg Tab.osm.24 Daily Active [facility] Metformin Hcl 500 Mg Tablet Daily Active 1 tablet in the am. 2 tablets in the evening [facility] Omeprazole 40 Mg Capsule.dr Daily Active [facility] Quinapril Hcl 20 Mg Tablet Daily Active [facility] Simvastatin 10 Mg Tablet Daily Active [facility] Allergies, Adverse Reactions, Alerts Substance Category Reaction Severity Reaction type Status Date Reported Comments Source Iodine HIVES Mild Allergy to Substance Active 11/07/2013 [facility] Ibuprofen LIVER PROBLEMS Mild Allergy to Substance Active 11/07/2013 [facility] Immunizations Immunization Date Given Site Status Last Updated Comments Source Results Order Name Results Value Reference Range Date Interpretation Comments Source Capillary blood glucose measurement by glucometer (mass/volume) 92 70 - 120 10/21/2018 [facility] Blood leukocytes automated count (number/volume) 5.64 4.8 - 10.8 10/19/2018 [facility] Blood erythrocytes automated count (number/volume) 3.03 3.6 - 5.1 10/19/2018 [facility] Blood hemoglobin measurement (moles/volume) 8.4 12.0 - 16.0 10/19/2018 [facility] Automated blood hematocrit (volume fraction) 26.2 34.2 - 44.1 10/19/2018 [facility] Automated erythrocyte mean corpuscular volume 86.5 81 - 99 10/19/2018 [facility] Automated erythrocyte mean corpuscular hemoglobin (mass per erythrocyte) 27.7 28 - 32 10/19/2018 [facility] Automated erythrocyte mean corpuscular hemoglobin concentration measurement (mass/volume) 32.1 31 - 35 10/19/2018 [facility] RDW BldCo-Rto 13.8 11.7 - 14.4 10/19/2018 [facility] Automated blood platelet count (count/volume) 279 140 - 360 10/19/2018 [facility] Automated blood segmented neutrophil count as percentage of total leukocytes 55.0 38.7 - 80.0 10/19/2018 [facility] Automated blood lymphocyte count as percentage ot total leukocytes 28.7 18.0 - 39.1 10/19/2018 [facility] Automated blood monocyte count as percentage of total leukocytes 12.4 4.4 - 11.3 10/19/2018 [facility] Automated blood eosinophil count as percentage of total leukocytes 3.0 0.0 - 6.0 10/19/2018 [facility] Automated blood basophil count as percentage of total leukocytes 0.4 0.0 - 1.0 10/19/2018 [facility] IM GRANULOCYTES % 0.5 0.0 - 1.0 10/19/2018 [facility] Automated blood neutrophil count 3.1 2.1 - 6.9 10/19/2018 [facility] Blood lymphocytes count (number/volume) 1.6 1.0 - 3.2 10/19/2018 [facility] Blood monocytes automated count (number/volume) 0.7 0.2 - 0.8 10/19/2018 [facility] Automated blood eosinophil count 0.2 0.0 - 0.4 10/19/2018 [facility] Automated blood basophil count (count/volume) 0.0 0.0 - 0.1 10/19/2018 [facility] Absolute Immature Granulocyte (auto 0.03 0 - 0.1 10/19/2018 [facility] Differential Total Cells Counted 100 10/19/2018 [facility] Manual blood neutrophils/100 leukocytes 62 40 - 74 10/19/2018 [facility] Manual blood lymphocytes/100 leukocytes 21 19 - 48 10/19/2018 [facility] Manual blood monocytes/100 leukocytes 11 3.4 - 9.0 10/19/2018 [facility] Manual blood eosinophil count as percentage of total leukocytes 3 0 - 7 10/19/2018 [facility] Manual basophil percentage 1 0 - 1.5 10/19/2018 [facility] Blood lymphocytes variant count (number/volume) 2 10/19/2018 [facility] Blood platelets count by estimate (number/volume) ADEQUATE 10/19/2018 [facility] Platelet morphology NORMAL 10/19/2018 [facility] Blood hypochromia detection by light microscopy MODERATE 10/19/2018 [facility] Blood anisocytosis detection by light microscopy SLIGHT 10/19/2018 [facility] RBC morphology NORMAL 10/19/2018 [facility] Serum or plasma sodium measurement (moles/volume) 137 136 - 145 10/19/2018 [facility] Serum or plasma potassium measurement (moles/volume) 3.3 3.5 - 5.1 10/19/2018 [facility] Serum or plasma chloride measurement (moles/volume) 103 98 - 107 10/19/2018 [facility] Serum or plasma carbon dioxide, total measurement (moles/volume) 28 22 - 29 10/19/2018 [facility] Serum or plasma anion gap 9.3 8 - 16 10/19/2018 [facility] Serum or plasma urea nitrogen measurement (mass/volume) 8 7 - 26 10/19/2018 [facility] Serum or plasma creatinine measurement (mass/volume) 0.65 0.57 - 1.11 10/19/2018 [facility] Serum or plasma urea nitrogen/creatinine mass ratio 12 6 - 25 10/19/2018 [facility] Estimated glomerular filtration rate (GFR) determination > 60 60 10/19/2018 [facility] Glucose measurement 92 74 - 118 10/19/2018 [facility] Serum or plasma calcium measurement (mass/volume) 8.8 8.4 - 10.2 10/19/2018 [facility] Urine color determination YELLOW YELLOW 10/14/2018 [facility] Urine clarity SL CLOUDY CLEAR 10/14/2018 [facility] Specific gravity of Urine by Test strip 1.005 1.010 - 1.025 10/14/2018 [facility] Urine pH measurement by automated test strip 7 5 - 7 10/14/2018 [facility] Urine leukocyte esterase detection by dipstick 2+ NEGATIVE 10/14/2018 [facility] Urine nitrite detection NEGATIVE NEGATIVE 10/14/2018 [facility] Urine protein measurement by test strip (mass/volume) 2+ NEGATIVE 10/14/2018 [facility] Urine glucose detection NEGATIVE NEGATIVE 10/14/2018 [facility] Urine ketones detection by automated test strip NEGATIVE NEGATIVE 10/14/2018 [facility] Urine urobilinogen measurement by test strip (mass/volume) 0.2 0.2 - 1 10/14/2018 [facility] Urine total bilirubin measurement (mass/volume) NEGATIVE NEGATIVE 10/14/2018 [facility] Urine erythrocytes detection 3+ NEGATIVE 10/14/2018 [facility] Automated urine sediment leukocyte count by microscopy (number/high power field) >50 0 - 5 10/14/2018 [facility] Erythrocytes detection in urine sediment by light microscopy 21-50 0 - 5 10/14/2018 [facility] Bacteria detection in urine sediment by light microscopy MANY NONE 10/14/2018 [facility] Epithelial cells detection in urine sediment by light microscopy RARE NONE 10/14/2018 [facility] Transitional cells detection in urine sediment by light microscopy FEW NONE 10/14/2018 [facility] Prothrombin time (PT) in platelet poor plasma by coagulation assay 15.4 11.9 - 14.5 10/14/2018 [facility] INR in Platelet poor plasma by Coagulation assay 1.16 10/14/2018 [facility] Activated partial thromboplastin time (aPTT) in platelet poor plasma bycoagulation assay 27.0 23.8 - 35.5 10/14/2018 [facility] Influenza virus A and B antigen identification by immunofluorescence NEGATIVE NEGATIVE 10/14/2018 [facility] Lactic Acid Level 12.6 4.5 - 19.8 10/14/2018 [facility] Serum or plasma magnesium measurement (mass/volume) 2.0 1.3 - 2.1 10/14/2018 [facility] Serum or plasma total bilirubin measurement (mass/volume) 0.7 0.2 - 1.2 10/14/2018 [facility] Aspartate Amino Transf (AST/SGOT) 26 5 - 34 10/14/2018 [facility] Serum or plasma alanine aminotransferase measurement (enzymatic activity/volume) 13 0 - 55 10/14/2018 [facility] Serum or plasma protein measurement (mass/volume) 7.8 6.5 - 8.1 10/14/2018 [facility] Serum or plasma albumin measurement (mass/volume) 3.7 3.5 - 5.0 10/14/2018 [facility] Plasma globulin measurement (mass/volume) 4.1 2.3 - 3.5 10/14/2018 [facility] Serum or plasma albumin/globulin mass ratio 0.9 0.8 - 2.0 10/14/2018 [facility] Serum or plasma alkaline phosphatase measurement (enzymatic activity/volume) 65 40 - 150 10/14/2018 [facility] BNP Bld-mCnc 93.8 0 - 100 10/14/2018 [facility] Serum or plasma creatine kinase measurement (enzymatic activity/volume) 628 29 - 168 10/14/2018 [facility] Serum or plasma creatine kinase MB measurement (mass/volume) 1.00 0 - 5.0 10/14/2018 [facility] Troponin I measurement by highly sensitive enzyme immunoassay 0.017 0 - 0.300 10/14/2018 [facility] Serum or plasma amylase measurement (enzymatic activity/volume) 78 25 - 125 10/14/2018 [facility] Serum or plasma lipase measurement (enzymatic activity/volume) 10 8 - 78 10/14/2018 [facility] Streptococcus pyogenes antigen detection in throat NEGATIVE NEGATIVE 10/14/2018 [facility] Capillary blood glucose measurement by glucometer (mass/volume) 95 70 - 120 07/28/2018 [facility] Blood leukocytes automated count (number/volume) 9.20 4.8 - 10.8 07/27/2018 [facility] Blood erythrocytes automated count (number/volume) 3.81 3.6 - 5.1 07/27/2018 [facility] Blood hemoglobin measurement (moles/volume) 10.8 12.0 - 16.0 07/27/2018 [facility] Automated blood hematocrit (volume fraction) 33.7 34.2 - 44.1 07/27/2018 [facility] Automated erythrocyte mean corpuscular volume 88.5 81 - 99 07/27/2018 [facility] Automated erythrocyte mean corpuscular hemoglobin (mass per erythrocyte) 28.3 28 - 32 07/27/2018 [facility] Automated erythrocyte mean corpuscular hemoglobin concentration measurement (mass/volume) 32.0 31 - 35 07/27/2018 [facility] RDW BldCo-Rto 13.0 11.7 - 14.4 07/27/2018 [facility] Automated blood platelet count (count/volume) 304 140 - 360 07/27/2018 [facility] Automated blood segmented neutrophil count as percentage of total leukocytes 59.4 38.7 - 80.0 07/27/2018 [facility] Automated blood lymphocyte count as percentage ot total leukocytes 27.0 18.0 - 39.1 07/27/2018 [facility] Automated blood monocyte count as percentage of total leukocytes 7.7 4.4 - 11.3 07/27/2018 [facility] Automated blood eosinophil count as percentage of total leukocytes 4.9 0.0 - 6.0 07/27/2018 [facility] Automated blood basophil count as percentage of total leukocytes 0.7 0.0 - 1.0 07/27/2018 [facility] IM GRANULOCYTES % 0.3 0.0 - 1.0 07/27/2018 [facility] Automated blood neutrophil count 5.5 2.1 - 6.9 07/27/2018 [facility] Blood lymphocytes count (number/volume) 2.5 1.0 - 3.2 07/27/2018 [facility] Blood monocytes automated count (number/volume) 0.7 0.2 - 0.8 07/27/2018 [facility] Automated blood eosinophil count 0.5 0.0 - 0.4 07/27/2018 [facility] Automated blood basophil count (count/volume) 0.1 0.0 - 0.1 07/27/2018 [facility] Absolute Immature Granulocyte (auto 0.03 0 - 0.1 07/27/2018 [facility] Serum or plasma sodium measurement (moles/volume) 137 136 - 145 07/27/2018 [facility] Serum or plasma potassium measurement (moles/volume) 4.2 3.5 - 5.1 07/27/2018 [facility] Serum or plasma chloride measurement (moles/volume) 102 98 - 107 07/27/2018 [facility] Serum or plasma carbon dioxide, total measurement (moles/volume) 27 22 - 29 07/27/2018 [facility] Serum or plasma anion gap 12.2 8 - 16 07/27/2018 [facility] Serum or plasma urea nitrogen measurement (mass/volume) 17 7 - 26 07/27/2018 [facility] Serum or plasma creatinine measurement (mass/volume) 0.78 0.57 - 1.11 07/27/2018 [facility] Serum or plasma urea nitrogen/creatinine mass ratio 22 6 - 25 07/27/2018 [facility] Estimated glomerular filtration rate (GFR) determination > 60 60 07/27/2018 [facility] Glucose measurement 98 74 - 118 07/27/2018 [facility] Serum or plasma calcium measurement (mass/volume) 10.0 8.4 - 10.2 07/27/2018 [facility] Bacterial urine culture Urine Culture [facility] Vital Signs Vital Sign Value Date Comments Source Encounters Location Location Details Encounter Type Encounter Number Reason For Visit Attending Provider ADM Date DC Date Status Source Registered [facility] [id number] ARDEN LANDIN MD 07/28/2018 [facility] Departed Emergency Room [id number] RINA SALMON MD 09/07/2018 09/07/2018 [facility] Departed Emergency Room [id number] ОЛЕГ MARTIN MD 09/07/2018 09/07/2018 [facility] Discharged Inpatient [id number] OSCAR HUNT MD 10/15/2018 10/21/2018 [facility] Departed Emergency Room [id number] RINA SALMON MD 10/30/2018 10/30/2018 [facility] Procedures Procedure Code Date Perfomer Comments Source INSERTION OF INFUSION DEV INTO SUP VENA CAVA, PERC APPROACH [id number] 10/19/2018 [facility] Computed tomography of brain without radiopaque contrast [id number] 10/14/2018 [facility] X-ray of chest, two views [id number] 10/14/2018 [facility] CT of abdomen and pelvis without contrast [id number] 10/14/2018 [facility] CARPAL TUNNEL SURGERY [id number] 07/28/2018 [facility] X-ray of chest, two views [id number] 07/27/2018 [facility]
[2018-11-03 18:01] VITALS: BP 139/58
== END 2018-11-03 17:40 | disposition home or self-care (01) ==
LOC: ER 16:10
DX: T83.098A Other mechanical complication of other urinary catheter, initial encounter (principal); R33.9 Retention of urine, unspecified; R10.30 Lower abdominal pain, unspecified; Z87.442 Personal history of urinary calculi; I10 Essential (primary) hypertension; E11.9 Type 2 diabetes mellitus without complications; Z87.440 Personal history of urinary (tract) infections; Z88.6 Allergy status to analgesic agent; Z91.048 Other nonmedicinal substance allergy status
CPT/HCPCS: 99283

== ENCOUNTER 2018-11-10 10:17 | Emergency (ER) | payer MEDICARE ==
[~2018-11-10] VITALS: Ht 157.5 cm; Wt 54.9 kg
--- NOTE | 2018-11-10 11:10 | NUR ---
Put a leg bag on the pt and took the large figueroa bag off the pt.
[2018-11-10 11:34] VITALS: BP 145/54
== END 2018-11-10 11:30 | disposition home or self-care (01) ==
LOC: ER 10:17
DX: B37.3 Candidiasis of vulva and vagina (principal); Z88.8 Allergy status to other drugs, medicaments and biological substances; Z91.048 Other nonmedicinal substance allergy status; I10 Essential (primary) hypertension; E11.9 Type 2 diabetes mellitus without complications; E78.5 Hyperlipidemia, unspecified; Z79.84 Long term (current) use of oral hypoglycemic drugs
CPT/HCPCS: 99282

== ENCOUNTER 2018-11-30 10:17 | Emergency (ER) | payer MEDICARE ==
[~2018-11-30] VITALS: Ht 157.5 cm; Wt 54.9 kg
--- OUTSIDE RECORDS SUMMARY | 2018-11-30 10:24 | XMS REPORT | Continuity of Care Document ---
Author Author [employer] Address Unknown Phone Unavailable Care Team Providers [employer] Counter Associate Name Role Phone [employer] Unavailable Unavailable Problems Problem Status Onset Date Classification Date Reported Comments Source Rhabdomyolysis Active Problem 10/31/2018 [facility] UTI Active Problem 10/31/2018 [facility] Medications Medication Details Route Status Patient Instructions Ordering Provider Order Date Source Nitrofurantoin Macrocrystal (Nitrofurantoin) 50 Mg Capsule, 50 Mg Oral Daily Active 07/27/2018 [facility] Phenazopyridine Hcl 100 Mg Tablet, 100 Mg Oral Three Times A Day Active 07/27/2018 [facility] Fluticasone Propionate 16 Gm [place].susp As Needed as needed for Allergy Active [facility] Glipizide (Glipizide Xl) 2.5 Mg Tab.osm.24 Daily Active [facility] Metformin Hcl 500 Mg Tablet Daily Active 1 tablet in the am. 2 tablets in the evening [facility] Omeprazole 40 Mg Capsule.dr Daily Active [facility] Quinapril Hcl 20 Mg Tablet Daily Active [facility] Simvastatin 10 Mg Tablet Daily Active [facility] Allergies, Adverse Reactions, Alerts Substance Category Reaction Severity Reaction type Status Date Reported Comments Source Iodine HIVES Mild Allergy to Substance Active 11/07/2013 [facility] Ibuprofen LIVER PROBLEMS Mild Allergy to Substance Active 11/07/2013 [facility] Immunizations No Data Provided for This Section Results Order Name Results Value Reference Range Date Interpretation Comments Source Capillary blood glucose measurement by glucometer (mass/volume) 92 70 - 120 10/21/2018 [facility] Blood leukocytes automated count (number/volume) 5.64 4.8 - 10.8 10/19/2018 [facility] Blood erythrocytes automated count (number/volume) 3.03 3.6 - 5.1 10/19/2018 [facility] Blood hemoglobin measurement (moles/volume) 8.4 12.0 - 16.0 10/19/2018 [facility] Automated blood hematocrit (volume fraction) 26.2 34.2 - 44.1 10/19/2018 [facility] Automated erythrocyte mean corpuscular volume 86.5 81 - 99 10/19/2018 [facility] Automated erythrocyte mean corpuscular hemoglobin (mass per erythrocyte) 27.7 28 - 32 10/19/2018 [facility] Automated erythrocyte mean corpuscular hemoglobin concentration measurement (mass/volume) 32.1 31 - 35 10/19/2018 [facility] RDW BldCo-Rto 13.8 11.7 - 14.4 10/19/2018 [facility] Automated blood platelet count (count/volume) 279 140 - 360 10/19/2018 [facility] Automated blood segmented neutrophil count as percentage of total leukocytes 55.0 38.7 - 80.0 10/19/2018 [facility] Automated blood lymphocyte count as percentage ot total leukocytes 28.7 18.0 - 39.1 10/19/2018 [facility] Automated blood monocyte count as percentage of total leukocytes 12.4 4.4 - 11.3 10/19/2018 [facility] Automated blood eosinophil count as percentage of total leukocytes 3.0 0.0 - 6.0 10/19/2018 [facility] Automated blood basophil count as percentage of total leukocytes 0.4 0.0 - 1.0 10/19/2018 [facility] IM GRANULOCYTES % 0.5 0.0 - 1.0 10/19/2018 [facility] Automated blood neutrophil count 3.1 2.1 - 6.9 10/19/2018 [facility] Blood lymphocytes count (number/volume) 1.6 1.0 - 3.2 10/19/2018 [facility] Blood monocytes automated count (number/volume) 0.7 0.2 - 0.8 10/19/2018 [facility] Automated blood eosinophil count 0.2 0.0 - 0.4 10/19/2018 [facility] Automated blood basophil count (count/volume) 0.0 0.0 - 0.1 10/19/2018 [facility] Absolute Immature Granulocyte (auto 0.03 0 - 0.1 10/19/2018 [facility] Differential Total Cells Counted 100 10/19/2018 [facility] Manual blood neutrophils/100 leukocytes 62 40 - 74 10/19/2018 [facility] Manual blood lymphocytes/100 leukocytes 21 19 - 48 10/19/2018 [facility] Manual blood monocytes/100 leukocytes 11 3.4 - 9.0 10/19/2018 [facility] Manual blood eosinophil count as percentage of total leukocytes 3 0 - 7 10/19/2018 [facility] Manual basophil percentage 1 0 - 1.5 10/19/2018 [facility] Blood lymphocytes variant count (number/volume) 2 10/19/2018 [facility] Blood platelets count by estimate (number/volume) ADEQUATE 10/19/2018 [facility] Platelet morphology NORMAL 10/19/2018 [facility] Blood hypochromia detection by light microscopy MODERATE 10/19/2018 [facility] Blood anisocytosis detection by light microscopy SLIGHT 10/19/2018 [facility] RBC morphology NORMAL 10/19/2018 [facility] Serum or plasma sodium measurement (moles/volume) 137 136 - 145 10/19/2018 [facility] Serum or plasma potassium measurement (moles/volume) 3.3 3.5 - 5.1 10/19/2018 [facility] Serum or plasma chloride measurement (moles/volume) 103 98 - 107 10/19/2018 [facility] Serum or plasma carbon dioxide, total measurement (moles/volume) 28 22 - 29 10/19/2018 [facility] Serum or plasma anion gap 9.3 8 - 16 10/19/2018 [facility] Serum or plasma urea nitrogen measurement (mass/volume) 8 7 - 26 10/19/2018 [facility] Serum or plasma creatinine measurement (mass/volume) 0.65 0.57 - 1.11 10/19/2018 [facility] Serum or plasma urea nitrogen/creatinine mass ratio 12 6 - 25 10/19/2018 [facility] Estimated glomerular filtration rate (GFR) determination > 60 60 10/19/2018 [facility] Glucose measurement 92 74 - 118 10/19/2018 [facility] Serum or plasma calcium measurement (mass/volume) 8.8 8.4 - 10.2 10/19/2018 [facility] Urine color determination YELLOW YELLOW 10/14/2018 [facility] Urine clarity SL CLOUDY CLEAR 10/14/2018 [facility] Specific gravity of Urine by Test strip 1.005 1.010 - 1.025 10/14/2018 [facility] Urine pH measurement by automated test strip 7 5 - 7 10/14/2018 [facility] Urine leukocyte esterase detection by dipstick 2+ NEGATIVE 10/14/2018 [facility] Urine nitrite detection NEGATIVE NEGATIVE 10/14/2018 [facility] Urine protein measurement by test strip (mass/volume) 2+ NEGATIVE 10/14/2018 [facility] Urine glucose detection NEGATIVE NEGATIVE 10/14/2018 [facility] Urine ketones detection by automated test strip NEGATIVE NEGATIVE 10/14/2018 [facility] Urine urobilinogen measurement by test strip (mass/volume) 0.2 0.2 - 1 10/14/2018 [facility] Urine total bilirubin measurement (mass/volume) NEGATIVE NEGATIVE 10/14/2018 [facility] Urine erythrocytes detection 3+ NEGATIVE 10/14/2018 [facility] Automated urine sediment leukocyte count by microscopy (number/high power field) >50 0 - 5 10/14/2018 [facility] Erythrocytes detection in urine sediment by light microscopy 21-50 0 - 5 10/14/2018 [facility] Bacteria detection in urine sediment by light microscopy MANY NONE 10/14/2018 [facility] Epithelial cells detection in urine sediment by light microscopy RARE NONE 10/14/2018 [facility] Transitional cells detection in urine sediment by light microscopy FEW NONE 10/14/2018 [facility] Prothrombin time (PT) in platelet poor plasma by coagulation assay 15.4 11.9 - 14.5 10/14/2018 [facility] INR in Platelet poor plasma by Coagulation assay 1.16 10/14/2018 [facility] Activated partial thromboplastin time (aPTT) in platelet poor plasma bycoagulation assay 27.0 23.8 - 35.5 10/14/2018 [facility] Influenza virus A and B antigen identification by immunofluorescence NEGATIVE NEGATIVE 10/14/2018 [facility] Lactic Acid Level 12.6 4.5 - 19.8 10/14/2018 [facility] Serum or plasma magnesium measurement (mass/volume) 2.0 1.3 - 2.1 10/14/2018 [facility] Serum or plasma total bilirubin measurement (mass/volume) 0.7 0.2 - 1.2 10/14/2018 [facility] Aspartate Amino Transf (AST/SGOT) 26 5 - 34 10/14/2018 [facility] Serum or plasma alanine aminotransferase measurement (enzymatic activity/volume) 13 0 - 55 10/14/2018 [facility] Serum or plasma protein measurement (mass/volume) 7.8 6.5 - 8.1 10/14/2018 [facility] Serum or plasma albumin measurement (mass/volume) 3.7 3.5 - 5.0 10/14/2018 [facility] Plasma globulin measurement (mass/volume) 4.1 2.3 - 3.5 10/14/2018 [facility] Serum or plasma albumin/globulin mass ratio 0.9 0.8 - 2.0 10/14/2018 [facility] Serum or plasma alkaline phosphatase measurement (enzymatic activity/volume) 65 40 - 150 10/14/2018 [facility] BNP Bld-mCnc 93.8 0 - 100 10/14/2018 [facility] Serum or plasma creatine kinase measurement (enzymatic activity/volume) 628 29 - 168 10/14/2018 [facility] Serum or plasma creatine kinase MB measurement (mass/volume) 1.00 0 - 5.0 10/14/2018 [facility] Troponin I measurement by highly sensitive enzyme immunoassay 0.017 0 - 0.300 10/14/2018 [facility] Serum or plasma amylase measurement (enzymatic activity/volume) 78 25 - 125 10/14/2018 [facility] Serum or plasma lipase measurement (enzymatic activity/volume) 10 8 - 78 10/14/2018 [facility] Streptococcus pyogenes antigen detection in throat NEGATIVE NEGATIVE 10/14/2018 [facility] Capillary blood glucose measurement by glucometer (mass/volume) 95 70 - 120 07/28/2018 [facility] Blood leukocytes automated count (number/volume) 9.20 4.8 - 10.8 07/27/2018 [facility] Blood erythrocytes automated count (number/volume) 3.81 3.6 - 5.1 07/27/2018 [facility] Blood hemoglobin measurement (moles/volume) 10.8 12.0 - 16.0 07/27/2018 [facility] Automated blood hematocrit (volume fraction) 33.7 34.2 - 44.1 07/27/2018 [facility] Automated erythrocyte mean corpuscular volume 88.5 81 - 99 07/27/2018 [facility] Automated erythrocyte mean corpuscular hemoglobin (mass per erythrocyte) 28.3 28 - 32 07/27/2018 [facility] Automated erythrocyte mean corpuscular hemoglobin concentration measurement (mass/volume) 32.0 31 - 35 07/27/2018 [facility] RDW BldCo-Rto 13.0 11.7 - 14.4 07/27/2018 [facility] Automated blood platelet count (count/volume) 304 140 - 360 07/27/2018 [facility] Automated blood segmented neutrophil count as percentage of total leukocytes 59.4 38.7 - 80.0 07/27/2018 [facility] Automated blood lymphocyte count as percentage ot total leukocytes 27.0 18.0 - 39.1 07/27/2018 [facility] Automated blood monocyte count as percentage of total leukocytes 7.7 4.4 - 11.3 07/27/2018 [facility] Automated blood eosinophil count as percentage of total leukocytes 4.9 0.0 - 6.0 07/27/2018 [facility] Automated blood basophil count as percentage of total leukocytes 0.7 0.0 - 1.0 07/27/2018 [facility] IM GRANULOCYTES % 0.3 0.0 - 1.0 07/27/2018 [facility] Automated blood neutrophil count 5.5 2.1 - 6.9 07/27/2018 [facility] Blood lymphocytes count (number/volume) 2.5 1.0 - 3.2 07/27/2018 [facility] Blood monocytes automated count (number/volume) 0.7 0.2 - 0.8 07/27/2018 [facility] Automated blood eosinophil count 0.5 0.0 - 0.4 07/27/2018 [facility] Automated blood basophil count (count/volume) 0.1 0.0 - 0.1 07/27/2018 [facility] Absolute Immature Granulocyte (auto 0.03 0 - 0.1 07/27/2018 [facility] Serum or plasma sodium measurement (moles/volume) 137 136 - 145 07/27/2018 [facility] Serum or plasma potassium measurement (moles/volume) 4.2 3.5 - 5.1 07/27/2018 [facility] Serum or plasma chloride measurement (moles/volume) 102 98 - 107 07/27/2018 [facility] Serum or plasma carbon dioxide, total measurement (moles/volume) 27 22 - 29 07/27/2018 [facility] Serum or plasma anion gap 12.2 8 - 16 07/27/2018 [facility] Serum or plasma urea nitrogen measurement (mass/volume) 17 7 - 26 07/27/2018 [facility] Serum or plasma creatinine measurement (mass/volume) 0.78 0.57 - 1.11 07/27/2018 [facility] Serum or plasma urea nitrogen/creatinine mass ratio 22 6 - 25 07/27/2018 [facility] Estimated glomerular filtration rate (GFR) determination > 60 60 07/27/2018 [facility] Glucose measurement 98 74 - 118 07/27/2018 [facility] Serum or plasma calcium measurement (mass/volume) 10.0 8.4 - 10.2 07/27/2018 [facility] Bacterial urine culture Urine Culture [facility] Pathology Reports No Data Provided for This Section Diagnostic Reports No Data Provided for This Section Consultation Notes No Data Provided for This Section Discharge Summaries No Data Provided for This Section History and Physicals No Data Provided for This Section Vital Signs No Data Provided for This Section Encounters Location Location Details Encounter Type Encounter Number Reason For Visit Attending Provider ADM Date DC Date Status Source Registered Surgical Day [facility] [id number] ARDEN LANDIN MD 07/28/2018 [facility] Departed Emergency Room [id number] RINA SALMON MD 09/07/2018 09/07/2018 [facility] Departed Emergency Room [id number] ОЛЕГ MARTIN MD 09/07/2018 09/07/2018 [facility] Discharged Inpatient [id number] OSCAR HNUT MD 10/15/2018 10/21/2018 [facility] Departed Emergency Room [id number] RINA SALMON MD 10/30/2018 10/30/2018 [facility] Procedures Procedure Code Date Perfomer Comments Source INSERTION OF INFUSION DEV INTO SUP VENA CAVA, PERC APPROACH [id number] 10/19/2018 [facility] Computed tomography of brain without radiopaque contrast [id number] 10/14/2018 [facility] X-ray of chest, two views [id number] 10/14/2018 [facility] CT of abdomen and pelvis without contrast [id number] 10/14/2018 [facility] CARPAL TUNNEL SURGERY [id number] 07/28/2018 [facility] X-ray of chest, two views [id number] 07/27/2018 [facility] Assessment and Plan No Data Provided for This Section Plan of Care Plan of Care Date Source Discharge Date 10/30/18 8:27pm Disposition HOME, SELF-CARE Condition at Discharge Stable Instructions/Education Provided [facility] Catheter Care Forms Provided Work/School Excuse Prescriptions See Medication Section Additional Instructions/Education FOLLOW UP WITH DR. CHAWLA SCHEDULED NEXT 11/04/2018 10/30/2018 [facility] Discharge Date 09/07/18 7:30pm Disposition ELOPED Condition at Discharge Other Prescriptions See Medication Section 09/07/2018 [facility] Social History Social History Date Source Social History Problem Response Recorded Date/Time Onset Date Status Hx Psychiatric Problems No 11/26/2011 10:53am Not Applicable Not Applicable Smoking Status Start Date Stop Date Never Smoker 10/30/2018 [facility] Family History No Data Provided for This Section Advance Directives Order Name Results Value Date Source Advance Directives Advance Directives Directive Response Recorded Date/Time Does the patient have an advance directive? Yes 10/14/18 10:47pm If yes, is advance directive on file with [facility]? No 10/14/18 10:47pm If not on file with [facility] will patient provide a copy? Yes 10/14/18 10:47pm Do you have a Directive to Physician? No 10/30/18 7:27pm Do you have a Medical Power of Registered Dental Assistant Rda? No 10/30/18 7:27pm Do you have an out of hospital Do Not Resuscitate Order? No 10/30/18 7:27pm Do you have any special needs we should be aware of? No 10/30/18 7:27pm Do you have a support person here with you today? Yes 10/30/18 7:27pm Did patient receive Notice of Privacy Practices? Yes 10/30/18 7:27pm Did patient receive patient rights and responsibilities? Yes 10/30/18 7:27pm 10/30/2018 [facility] Advance Directives Advance Directives Directive Response Recorded Date/Time Does the patient have an advance directive? Yes 07/27/18 9:45am If yes, is advance directive on file with [facility]? No 11/26/11 10:53am If not on file with [facility] will patient provide a copy? Yes 07/27/18 9:45am 09/07/2018 [facility] Functional Status No Data Provided for This Section
--- NOTE | 2018-11-30 12:10 | NUR ---
PT GIVEN LEG BAG FOR HILARIO, EDUCATED PATIENT ON HOW TO SWITCH LEG BAG TO REGULAR BAG. RETURN DEMONSTRATION VISUALIZED, PATIENT VERBALIZED UNDERSTANDING. NO FURTHER NEEDS VOICED AT THIS TIME.
== END 2018-11-30 12:34 | disposition home or self-care (01) ==
LOC: ER 10:17
DX: Z46.6 Encounter for fitting and adjustment of urinary device (principal); N13.9 Obstructive and reflux uropathy, unspecified; N30.90 Cystitis, unspecified without hematuria; I10 Essential (primary) hypertension; E11.9 Type 2 diabetes mellitus without complications; E78.5 Hyperlipidemia, unspecified
CPT/HCPCS: 51700; 99282

== ENCOUNTER → 2019-01-15 | Day surgery (SDC) | payer MEDICARE ==
[2019-01-12 13:32] LABS: BASOPHILS # (AUTO) 0.1 (0.0-0.1); BASOPHILS % 0.4 % (0.0-1.0); EOSINOPHILS # (AUTO) 0.4 (0.0-0.4); EOSINOPHILS % 3.2 % (0.0-6.0); HEMOGLOBIN 10.7 g/dL (12.0-16.0); LYMPHOCYTES # (AUTO) 3.1 (1.0-3.2); LYMPHOCYTES % 26.6 % (18.0-39.1); MEAN CORPUSCULAR HEMOGLOBIN 27.9 pg (28-32); MEAN CORPUSCULAR HGB CONC 31.5 g/dL (31-35); MEAN CORPUSCULAR VOLUME 88.5 fL (81-99); MONOCYTES # (AUTO) 0.6 (0.2-0.8); MONOCYTES % 5.3 % (4.4-11.3); NEUTROPHILS # (AUTO) 7.4 (2.1-6.9); NEUTROPHILS % 64.2 % (38.7-80.0); PLATELET COUNT 338 x10e3/uL (140-360); RED BLOOD COUNT 3.84 x10e6/uL (3.6-5.1); RED CELL DISTRIBUTION WIDTH 14.3 % (11.7-14.4)
[2019-01-12 14:01] LABS: ANION GAP 14.3 mmol/L (8-16); BLOOD UREA NITROGEN 11 mg/dL (7-26); BUN/CREATININE RATIO 13 (6-25); CALCIUM 9.8 mg/dL (8.4-10.2); CARBON DIOXIDE 27 mmol/L (22-29); CHLORIDE 99 mmol/L (98-107); CREATININE, SERUM 0.83 mg/dL (0.57-1.11); EST GLOMERULAR FILTRATION RATE > 60 ML/MIN (60-); GLUCOSE 85 mg/dL (74-118); POTASSIUM 4.3 mmol/L (3.5-5.1); SODIUM 136 mmol/L (136-145)
--- NOTE | 2019-01-12 15:52 | Diagnostic Imaging Report ---
EXAMINATION: CHEST 2 VIEWS INDICATION: Pre-operative COMPARISON: Chest radiograph of 10/19/2018 FINDINGS: LINES/TUBES:Interval removal of right PICC line. LUNGS:The lungs are well-inflated. No focal consolidation or pulmonary edema. Mild subsegmental atelectasis at the left lung base. PLEURA:No pleural effusion or pneumothorax. MEDIASTINUM:The cardiomediastinal silhouette appears normal in size and shape. Atherosclerotic calcifications of the thoracic aorta. BONES/SOFT TISSUES:No acute osseous injury. Degenerative changes of the visualized spine. ABDOMEN:No free air under the diaphragm. IMPRESSION: No focal pneumonia or pulmonary edema. Signed by: Glory Erickson MD on 01/12/2019 3:49 PM
[~2019-01-15] MED LIST changes: +CEFTRIAXONE SOD 1 GM/NS 50 ML 50 ML IV ONE; +IOPAMIDOL 610MG/1ML 300 MG/ML VIAL IV ONE; +LIDOCAINE HCL 2% LOCAL INJ 5 ML SDV VIAL INJ ONE; +PANTOPRAZOLE SO40 MG PO; +PROPOFOL IV EMULSION 10 MG/ML 20 ML VIAL ONE; +SEVOFLURANE INHAL SOLN 250 ML PEN BTL ONE
--- OUTSIDE RECORDS SUMMARY | 2019-01-15 07:15 | XMS REPORT | Continuity of Care Document ---
Author Author [employer] Address Unknown Phone Unavailable Care Team Providers Care Director Patient Financial Services Name Role Phone [employer] Information [employer] Unavailable Unavailable Problems Problem Status Onset Date [...] [facility] Fluticasone Propionate 16 Gm [place].susp As Needed as needed for Allergy Active [...] Active 11/07/2013 [facility] Immunizations No Data Provided for This [...] culture Urine Culture [facility] Pathology Reports No Data Provided for [...] Date Status Source Registered Surgical Day Care [id number] ARDEN LANDIN MD 07/28/2018 [facility] Departed Emergency Room [id number] RINA SALMON MD 09/07/2018 09/07/2018 [facility] Departed Emergency Room [id number] ОЛЕГ MARTIN MD 09/07/2018 09/07/2018 [facility] Discharged Inpatient [id number] OSCAR HUNT MD 10/15/2018 10/21/2018 [facility] Departed Emergency Room [id number] RINA SALMON MD 10/30/2018 10/30/2018 [facility] Procedures Procedure Code Date Perfomer Comments Source INSERTION OF INFUSION DEV INTO SUP VENA CAVA, PERC APPROACH [id number] 10/19/2018 [facility] Computed tomography of brain without radiopaque contrast [id number] 10/14/2018 [facility] X-ray of chest, two views [id number] 10/14/[address] [facility] [address] of abdomen and pelvis without contrast [id number] 10/14/2018 [facility] CARPAL TUNNEL SURGERY [id number] 07/28/2018 [facility] Assessment and Plan No Data Provided for This Section Plan of Care Plan of Care Date Source Discharge Date 10/30/18 8:27pm Disposition HOME, SELF-CARE Condition at Discharge Stable Instructions/Education Provided Baron Catheter Care Forms Provided Work/School Excuse Prescriptions See Medication Section Additional Instructions/Education FOLLOW UP WITH DR. CHAWLA SCHEDULED NEXT 11/04/2018 10/30/2018 [facility] Discharge Date 09/07/18 7:30pm Disposition ELOPED Condition at Discharge Other Prescriptions See Medication Section 09/07/2018 [facility] Social History Social History Date Source Social History Problem Response Recorded Date/Time Onset Date Status Hx Psychiatric Problems No 11/26/2011 10:53am Not Applicable Not Applicable Smoking Status Start Date Stop Date Never Smoker 10/30/2018 [facility] Family History No Data Provided for This Section Advance Directives Order Name Results Value Date Source Advance Directives Advance Directives Directive Response Recorded Date/Time Does the patient have an advance directive? Yes 10/14/18 10:47pm If yes, is advance directive on file with [facility]? No 10/14/18 10:47pm If not on file with [facility] will patient provide a copy? Yes 10/14/18 10:47pm Do you have a Directive to Physician? No 10/30/18 7:27pm Do you have a Medical Power of Builder Operator? No 10/30/18 7:27pm Do you have an [...] rights and responsibilities? Yes 10/30/18 7:27pm 10/30/2018 [facility] Advance Directives Advance Directives Directive Response Recorded Date/Time Does the patient have an advance directive? Yes 07/27/18 9:45am If yes, is advance directive on file with [facility]? No 11/26/11 10:53am If not on file with [facility] will patient provide a copy? Yes 07/27/18 9:45am 09/07/2018 [facility] Functional Status No Data Provided for This Section
[2019-01-15 10:05] VITALS: BP 151/79
--- NOTE | 2019-01-15 22:55 | Operative Report ---
DATE OF PROCEDURE: 01/15/2019 SURGEON: Mathew Bennett MD PREOPERATIVE DIAGNOSES: 1. Multiple chronic urinary tract infections. 2. Clinical signs and symptoms of interstitial cystitis without hematuria. POSTOPERATIVE DIAGNOSES: 1. Multiple chronic urinary tract infections. 2. Clinical signs and symptoms of interstitial cystitis without hematuria. 3. 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 PROCEDURE: 1. Cystourethroscopy with hydrodistention (entirely separate procedure for clinical signs and symptoms of interstitial cystitis without hematuria). 2. Cystourethroscopy with left ureteral catheterization and left retrograde pyelogram (separate procedure for multiple urinary tract infections). 3. Cystourethroscopy with right ureteral catheterization and right retrograde pyelogram (separate procedure for multiple chronic urinary infections). 4. Supervision of fluoroscopy. 5. Interpretation of retrograde pyelography. ANESTHESIA: General. ESTIMATED BLOOD LOSS: Minimal. COMPLICATIONS: None. INDICATIONS FOR PROCEDURE: Ms. New is a very pleasant 83-year-old female with a history of many years of urinary tract infection. She and I had a long discussion about alternatives, risks, and benefits of doing nothing, cystoscopy, IVP, retrograde pyelogram and ultrasound, as well as hydrodistention. She voiced understanding of the options, alternatives, risks, and benefits and elected to proceed. PROCEDURE IN DETAIL: After informed consent was obtained, the patient was taken to operative suite, placed supine on the operating table, underwent general anesthesia by the Anesthesia Service. She was placed in the dorsal lithotomy position, sterilely prepped and draped in standard fashion for cystoscopy. Severe vaginal atrophy was noted. There was a grade 2-3 cystocele. A 21-Filipino cystoscope was inserted per urethra. Normal urethra was noted. Panendoscopy revealed no masses, fungus, or ball mucus. This was evacuated, passed off the table as specimen. Hydrodistention was performed with a capacity of 800 mL. No glomerulations, no Hunner's ulcers. Bilateral retrograde pyelogram was performed, normal bladder was then drained. The patient was awakened from anesthesia and transported to the recovery room in excellent condition. Supervision of fluoroscopy and interpretation of retrograde pyelography: I was present for the entire procedure and supervised the use of fluoroscopy. There was no radiologist present. Attention was turned towards the left and right ureteral orifices, which were catheterized with an 8-Filipino cone-tipped catheter. In retrograde fashion, contrast was injected revealing delicate ureters, delicate pelvocaliceal systems, no evidence of filling defects, no evidence of hydronephrosis. IMPRESSION: Normal retrograde pyelograms. MD WILBERT Kaiser/MODL /[id number]
== END | disposition home or self-care (01) ==
LOC: OR 06:40
PROVIDERS: ATTEND Urology
DX: N39.0 Urinary tract infection, site not specified (principal); N81.10 Cystocele, unspecified; N95.2 Postmenopausal atrophic vaginitis; B49 Unspecified mycosis; N28.1 Cyst of kidney, acquired; R32 Unspecified urinary incontinence; N32.89 Other specified disorders of bladder; E11.9 Type 2 diabetes mellitus without complications; I10 Essential (primary) hypertension; E78.6 Lipoprotein deficiency; K21.9 Gastro-esophageal reflux disease without esophagitis; Z88.8 Allergy status to other drugs, medicaments and biological substances; Z91.041 Radiographic dye allergy status; Z91.013 Allergy to seafood; Z01.810 Encounter for preprocedural cardiovascular examination; Z01.812 Encounter for preprocedural laboratory examination; Z01.818 Encounter for other preprocedural examination; Z79.84 Long term (current) use of oral hypoglycemic drugs
CPT/HCPCS: 36415; 52005; 71046; 74420; 80048; 85025; 87071; 87106; 87186; 87205; 93005; C1758; J0696; J2001; J2704; Q9967

== ENCOUNTER 2019-02-13 16:23 | Inpatient (IN) | payer MEDICARE ==
[~2019-02-13] VITALS: Ht 157.5 cm; Wt 55.3 kg
[~2019-02-13 16:23] MED LIST changes: -CEFTRIAXONE SOD 1 GM/NS 50 ML 50 ML IV ONE; -IOPAMIDOL 610MG/1ML 300 MG/ML VIAL IV ONE; -LIDOCAINE HCL 2% LOCAL INJ 5 ML SDV VIAL INJ ONE; -PANTOPRAZOLE SO40 MG PO; -PROPOFOL IV EMULSION 10 MG/ML 20 ML VIAL ONE; -SEVOFLURANE INHAL SOLN 250 ML PEN BTL ONE
--- OUTSIDE RECORDS SUMMARY | 2019-02-13 16:28 | XMS REPORT | Continuity of Care Document ---
Author Author Nousco Address Unknown Phone Unavailable Care Team Providers Care Mems Engineer Name Role Phone Skyera Unavailable Unavailable Problems Problem Status Onset Date Classification Date Reported Comments Source Rhabdomyolysis Active Problem 11/30/2018 [facility] UTI Active Problem 10/31/2018 [facility] Urinary tract infection Active Problem 11/30/2018 [facility] Medications Medication Details Route Status Patient Instructions Ordering Provider Order Date Source Nitrofurantoin Macrocrystal (Nitrofurantoin) 50 Mg Capsule, 50 Mg Oral Daily Active 07/27/2018 [facility] Phenazopyridine Hcl 100 Mg Tablet, 100 Mg Oral Three Times A Day Active 07/27/2018 [facility] Fluticasone Propionate 16 Gm Ruston.susp As Needed as needed for Allergy Active [facility] Glipizide (Glipizide Xl) 2.5 Mg Tab.osm.24 Daily Active [facility] Metformin Hcl 500 Mg Tablet Daily Active 1 tablet in the am. 2 tablets in the evening [facility] Omeprazole 40 Mg Capsule.dr Daily Active [facility] Quinapril Hcl 20 Mg Tablet Daily Active [facility] Simvastatin 10 Mg Tablet Daily Active [facility] Allergies, Adverse Reactions, Alerts Substance Category Reaction Severity Reaction type Status Date Reported Comments Source Iodine HIVES Mild Allergy to Substance Active 11/10/2018 [facility] Ibuprofen LIVER PROBLEMS Mild Allergy to Substance Active 11/30/2018 [facility] Immunizations No Data Provided for This Section Results Order Name Results Value Reference Range Date Interpretation Comments Source Capillary blood glucose measurement by glucometer (mass/volume) 92 70 - 120 10/21/2018 [facility] Blood leukocytes automated count (number/volume) 5.64 4.8 - 10.8 10/19/2018 [facility] Blood erythrocytes automated count (number/volume) 3.03 3.6 - 5.1 10/19/2018 [facility] Blood hemoglobin measurement (moles/volume) 8.4 12.0 - 16.0 10/19/2018 [facility] Automated blood hematocrit (volume fraction) 26.2 34.2 - 44.1 10/19/2018 [facility] Automated erythrocyte mean corpuscular volume 86.5 81 - 99 10/19/2018 [facility] Automated erythrocyte mean corpuscular hemoglobin (mass per erythrocyte) 27.7 28 - 32 10/19/2018 [facility] Automated erythrocyte mean corpuscular hemoglobin concentration measurement (mass/volume) 32.1 31 - 35 10/19/2018 [facility] RDW BldCo-Rto 13.8 11.7 - 14.4 10/19/2018 [facility] Automated blood platelet count (count/volume) 279 140 - 360 10/19/2018 [facility] Automated blood segmented neutrophil count as percentage of total leukocytes 55.0 38.7 - 80.0 10/19/2018 [facility] Automated blood lymphocyte count as percentage ot total leukocytes 28.7 18.0 - 39.1 10/19/2018 [facility] Automated blood monocyte count as percentage of total leukocytes 12.4 4.4 - 11.3 10/19/2018 [facility] Automated blood eosinophil count as percentage of total leukocytes 3.0 0.0 - 6.0 10/19/2018 [facility] Automated blood basophil count as percentage of total leukocytes 0.4 0.0 - 1.0 10/19/2018 [facility] IM GRANULOCYTES % 0.5 0.0 - 1.0 10/19/2018 [facility] Automated blood neutrophil count 3.1 2.1 - 6.9 10/19/2018 [facility] Blood lymphocytes count (number/volume) 1.6 1.0 - 3.2 10/19/2018 [facility] Blood monocytes automated count (number/volume) 0.7 0.2 - 0.8 10/19/2018 [facility] Automated blood eosinophil count 0.2 0.0 - 0.4 10/19/2018 [facility] Automated blood basophil count (count/volume) 0.0 0.0 - 0.1 10/19/2018 [facility] Absolute Immature Granulocyte (auto 0.03 0 - 0.1 10/19/2018 [facility] Differential Total Cells Counted 100 10/19/2018 [facility] Manual blood neutrophils/100 leukocytes 62 40 - 74 10/19/2018 [facility] Manual blood lymphocytes/100 leukocytes 21 19 - 48 10/19/2018 [facility] Manual blood monocytes/100 leukocytes 11 3.4 - 9.0 10/19/2018 [facility] Manual blood eosinophil count as percentage of total leukocytes 3 0 - 7 10/19/2018 [facility] Manual basophil percentage 1 0 - 1.5 10/19/2018 [facility] Blood lymphocytes variant count (number/volume) 2 10/19/2018 [facility] Blood platelets count by estimate (number/volume) ADEQUATE 10/19/2018 [facility] Platelet morphology NORMAL 10/19/2018 [facility] Blood hypochromia detection by light microscopy MODERATE 10/19/2018 [facility] Blood anisocytosis detection by light microscopy SLIGHT 10/19/2018 [facility] RBC morphology NORMAL 10/19/2018 [facility] Serum or plasma sodium measurement (moles/volume) 137 136 - 145 10/19/2018 [facility] Serum or plasma potassium measurement (moles/volume) 3.3 3.5 - 5.1 10/19/2018 [facility] Serum or plasma chloride measurement (moles/volume) 103 98 - 107 10/19/2018 [facility] Serum or plasma carbon dioxide, total measurement (moles/volume) 28 22 - 29 10/19/2018 [facility] Serum or plasma anion gap 9.3 8 - 16 10/19/2018 [facility] Serum or plasma urea nitrogen measurement (mass/volume) 8 7 - 26 10/19/2018 [facility] Serum or plasma creatinine measurement (mass/volume) 0.65 0.57 - 1.11 10/19/2018 [facility] Serum or plasma urea nitrogen/creatinine mass ratio 12 6 - 25 10/19/2018 [facility] Estimated glomerular filtration rate (GFR) determination > 60 60 10/19/2018 [facility] Glucose measurement 92 74 - 118 10/19/2018 [facility] Serum or plasma calcium measurement (mass/volume) 8.8 8.4 - 10.2 10/19/2018 [facility] Urine color determination YELLOW YELLOW 10/14/2018 [facility] Urine clarity SL CLOUDY CLEAR 10/14/2018 [facility] Specific gravity of Urine by Test strip 1.005 1.010 - 1.025 10/14/2018 [facility] Urine pH measurement by automated test strip 7 5 - 7 10/14/2018 [facility] Urine leukocyte esterase detection by dipstick 2+ NEGATIVE 10/14/2018 [facility] Urine nitrite detection NEGATIVE NEGATIVE 10/14/2018 [facility] Urine protein measurement by test strip (mass/volume) 2+ NEGATIVE 10/14/2018 [facility] Urine glucose detection NEGATIVE NEGATIVE 10/14/2018 [facility] Urine ketones detection by automated test strip NEGATIVE NEGATIVE 10/14/2018 [facility] Urine urobilinogen measurement by test strip (mass/volume) 0.2 0.2 - 1 10/14/2018 [facility] Urine total bilirubin measurement (mass/volume) NEGATIVE NEGATIVE 10/14/2018 [facility] Urine erythrocytes detection 3+ NEGATIVE 10/14/2018 [facility] Automated urine sediment leukocyte count by microscopy (number/high power field) >50 0 - 5 10/14/2018 [facility] Erythrocytes detection in urine sediment by light microscopy 21-50 0 - 5 10/14/2018 [facility] Bacteria detection in urine sediment by light microscopy MANY NONE 10/14/2018 [facility] Epithelial cells detection in urine sediment by light microscopy RARE NONE 10/14/2018 [facility] Transitional cells detection in urine sediment by light microscopy FEW NONE 10/14/2018 [facility] Prothrombin time (PT) in platelet poor plasma by coagulation assay 15.4 11.9 - 14.5 10/14/2018 [facility] INR in Platelet poor plasma by Coagulation assay 1.16 10/14/2018 [facility] Activated partial thromboplastin time (aPTT) in platelet poor plasma bycoagulation assay 27.0 23.8 - 35.5 10/14/2018 [facility] Influenza virus A and B antigen identification by immunofluorescence NEGATIVE NEGATIVE 10/14/2018 [facility] Lactic Acid Level 12.6 4.5 - 19.8 10/14/2018 [facility] Serum or plasma magnesium measurement (mass/volume) 2.0 1.3 - 2.1 10/14/2018 [facility] Serum or plasma total bilirubin measurement (mass/volume) 0.7 0.2 - 1.2 10/14/2018 [facility] Aspartate Amino Transf (AST/SGOT) 26 5 - 34 10/14/2018 [facility] Serum or plasma alanine aminotransferase measurement (enzymatic activity/volume) 13 0 - 55 10/14/2018 [facility] Serum or plasma protein measurement (mass/volume) 7.8 6.5 - 8.1 10/14/2018 [facility] Serum or plasma albumin measurement (mass/volume) 3.7 3.5 - 5.0 10/14/2018 [facility] Plasma globulin measurement (mass/volume) 4.1 2.3 - 3.5 10/14/2018 [facility] Serum or plasma albumin/globulin mass ratio 0.9 0.8 - 2.0 10/14/2018 [facility] Serum or plasma alkaline phosphatase measurement (enzymatic activity/volume) 65 40 - 150 10/14/2018 [facility] BNP Bld-mCnc 93.8 0 - 100 10/14/2018 [facility] Serum or plasma creatine kinase measurement (enzymatic activity/volume) 628 29 - 168 10/14/2018 [facility] Serum or plasma creatine kinase MB measurement (mass/volume) 1.00 0 - 5.0 10/14/2018 [facility] Troponin I measurement by highly sensitive enzyme immunoassay 0.017 0 - 0.300 10/14/2018 [facility] Serum or plasma amylase measurement (enzymatic activity/volume) 78 25 - 125 10/14/2018 [facility] Serum or plasma lipase measurement (enzymatic activity/volume) 10 8 - 78 10/14/2018 [facility] Streptococcus pyogenes antigen detection in throat NEGATIVE NEGATIVE 10/14/2018 [facility] Capillary blood glucose measurement by glucometer (mass/volume) 95 70 - 120 07/28/2018 [facility] Blood leukocytes automated count (number/volume) 9.20 4.8 - 10.8 07/27/2018 [facility] Blood erythrocytes automated count (number/volume) 3.81 3.6 - 5.1 07/27/2018 [facility] Blood hemoglobin measurement (moles/volume) 10.8 12.0 - 16.0 07/27/2018 [facility] Automated blood hematocrit (volume fraction) 33.7 34.2 - 44.1 07/27/2018 [facility] Automated erythrocyte mean corpuscular volume 88.5 81 - 99 07/27/2018 [facility] Automated erythrocyte mean corpuscular hemoglobin (mass per erythrocyte) 28.3 28 - 32 07/27/2018 [facility] Automated erythrocyte mean corpuscular hemoglobin concentration measurement (mass/volume) 32.0 31 - 35 07/27/2018 [facility] RDW BldCo-Rto 13.0 11.7 - 14.4 07/27/2018 [facility] Automated blood platelet count (count/volume) 304 140 - 360 07/27/2018 [facility] Automated blood segmented neutrophil count as percentage of total leukocytes 59.4 38.7 - 80.0 07/27/2018 [facility] Automated blood lymphocyte count as percentage ot total leukocytes 27.0 18.0 - 39.1 07/27/2018 [facility] Automated blood monocyte count as percentage of total leukocytes 7.7 4.4 - 11.3 07/27/2018 [facility] Automated blood eosinophil count as percentage of total leukocytes 4.9 0.0 - 6.0 07/27/2018 [facility] Automated blood basophil count as percentage of total leukocytes 0.7 0.0 - 1.0 07/27/2018 [facility] IM GRANULOCYTES % 0.3 0.0 - 1.0 07/27/2018 [facility] Automated blood neutrophil count 5.5 2.1 - 6.9 07/27/2018 [facility] Blood lymphocytes count (number/volume) 2.5 1.0 - 3.2 07/27/2018 [facility] Blood monocytes automated count (number/volume) 0.7 0.2 - 0.8 07/27/2018 [facility] Automated blood eosinophil count 0.5 0.0 - 0.4 07/27/2018 [facility] Automated blood basophil count (count/volume) 0.1 0.0 - 0.1 07/27/2018 [facility] Absolute Immature Granulocyte (auto 0.03 0 - 0.1 07/27/2018 [facility] Serum or plasma sodium measurement (moles/volume) 137 136 - 145 07/27/2018 [facility] Serum or plasma potassium measurement (moles/volume) 4.2 3.5 - 5.1 07/27/2018 [facility] Serum or plasma chloride measurement (moles/volume) 102 98 - 107 07/27/2018 [facility] Serum or plasma carbon dioxide, total measurement (moles/volume) 27 22 - 29 07/27/2018 [facility] Serum or plasma anion gap 12.2 8 - 16 07/27/2018 [facility] Serum or plasma urea nitrogen measurement (mass/volume) 17 7 - 26 07/27/2018 [facility] Serum or plasma creatinine measurement (mass/volume) 0.78 0.57 - 1.11 07/27/2018 [facility] Serum or plasma urea nitrogen/creatinine mass ratio 22 6 - 25 07/27/2018 [facility] Estimated glomerular filtration rate (GFR) determination > 60 60 07/27/2018 [facility] Glucose measurement 98 74 - 118 07/27/2018 [facility] Serum or plasma calcium measurement (mass/volume) 10.0 8.4 - 10.2 07/27/2018 [facility] Bacterial urine culture Urine Culture [facility] Pathology Reports No Data Provided for This [...] Date Status Source Registered Surgical Day Care [id number] ARDEN LANDIN MD 07/28/2018 [facility] Departed Emergency Room [id number] RINA SALMON MD 09/07/2018 09/07/2018 [facility] Departed Emergency Room [id number] ОЛЕГ MARTIN MD 09/07/2018 09/07/2018 [facility] Discharged Inpatient [id number] OSCAR HUNT MD 10/15/2018 10/21/2018 [facility] Departed Emergency Room [id number] RINA SALMON MD 10/30/2018 10/30/2018 [facility] Departed Emergency Room [id number] JUANCARLOS COLE MD 11/03/2018 11/03/2018 [facility] Departed Emergency Room [id number] RINA SALMON MD 11/10/2018 11/10/2018 [facility] Departed Emergency Room [id number] RINA SALMON MD 11/30/2018 11/30/2018 [facility] Procedures Procedure Code Date Perfomer Comments Source INSERT TEMP BLADDER CATH [id number] 10/30/2018 [facility] INSERTION OF INFUSION DEV INTO SUP VENA CAVA, PERC APPROACH [id number] 10/19/2018 [facility] Computed tomography of brain without radiopaque contrast [id number] 10/14/2018 [facility] CT of abdomen and pelvis without contrast [id number] 10/14/2018 [facility] CARPAL TUNNEL SURGERY [id number] 07/28/2018 [facility] X-ray of chest, two views [id number] 07/27/2018 [facility] Assessment and Plan No Data Provided for This Section Plan of Care Plan of Care Date Source Discharge Date 11/30/18 12:34pm Disposition HOME, SELF-CARE Condition at Discharge Stable Instructions/Education Provided Urinary Retention Urinary Tract Infection - Women Forms Provided Work/School Excuse Prescriptions See Medication Section Referrals MATY QUIROZ MD Address: [address] [place] [id number] Additional Instructions/Education Follow-up with Urologist within 1 week. Return to ER for new or worsening symptoms. 11/30/2018 [facility] Discharge Date 10/30/18 8:27pm Disposition HOME, SELF-CARE Condition at Discharge Stable Instructions/Education Provided Baron Catheter Care Forms Provided Work/School Excuse Prescriptions See Medication Section Additional Instructions/Education FOLLOW UP WITH DR. CHAWLA SCHEDULED NEXT 11/04/2018 10/30/2018 [facility] Discharge Date 09/07/18 7:30pm Disposition ELOPED Condition at Discharge Other Prescriptions See Medication Section 09/07/2018 [facility] Social History Social History Date Source Social History Problem Response Recorded Date/Time Onset Date Status Hx Psychiatric Problems No 11/26/2011 10:53am Not Applicable Not Applicable Smoking Status Start Date Stop Date Never Smoker 11/30/2018 [facility] Family History No Data Provided for This Section Advance Directives Order Name Results Value Date Source Advance Directives Advance Directives Directive Response Recorded Date/Time Does the patient have an advance directive? Yes 10/14/18 10:47pm If yes, is advance directive on file with [facility]? No 10/14/18 10:47pm If not on file with [facility] will patient provide a copy? Yes 10/14/18 10:47pm 11/30/2018 [facility] Advance Directives Advance Directives Directive Response Recorded Date/Time Does the patient have an advance directive? Yes 10/14/18 10:47pm If yes, is advance directive on file with [facility]? No 10/14/18 10:47pm If not on file with [facility] will patient provide a copy? Yes 10/14/18 10:47pm Do you have a Directive to Physician? No 10/30/18 7:27pm Do you have a Medical Power of Grade Setter? No 10/30/18 7:27pm Do you have an [...] rights and responsibilities? Yes 10/30/18 7:27pm 10/30/2018 [facility] Advance Directives Advance Directives Directive Response Recorded Date/Time Does the patient have an advance directive? Yes 07/27/18 9:45am If yes, is advance directive on file with [facility]? No 11/26/11 10:53am If not on file with [facility] will patient provide a copy? Yes 07/27/18 9:45am 09/07/2018 [facility] Functional Status No Data Provided for This Section
[2019-02-13] MEDS ORDERED: SODIUM CHLORIDE 0.9% 1000ML 1,000 ML IV STA (16:53)
[2019-02-13 17:26] LABS: BASOPHILS % 0.3 % (0.0-1.0); HEMATOCRIT 34.5 % (34.2-44.1); HEMOGLOBIN 11.3 g/dL (12.0-16.0); LYMPHOCYTES % 8.8 % (18.0-39.1); MEAN CORPUSCULAR HEMOGLOBIN 28.2 pg (28-32); MEAN CORPUSCULAR HGB CONC 32.8 g/dL (31-35); MONOCYTES # (AUTO) 0.7 (0.2-0.8); MONOCYTES % 6.3 % (4.4-11.3); NEUTROPHILS # (AUTO) 9.9 (2.1-6.9); NEUTROPHILS % 83.8 % (38.7-80.0); PLATELET COUNT 294 x10e3/uL (140-360); RED BLOOD COUNT 4.01 x10e6/uL (3.6-5.1); RED CELL DISTRIBUTION WIDTH 14.3 % (11.7-14.4)
[2019-02-13] MEDS ORDERED: ONDANSETRON HCL INJ 2MG/ML 2ML 2 MG/ML VIAL IV ONE (17:30)
[2019-02-13 17:37] LABS: INR 1.1; PARTIAL THROMBOPLASTIN TIME 36.8 seconds (23.8-35.5); PROTHROMBIN TIME 14.7 seconds (11.9-14.5)
[2019-02-13 17:50] LABS: ALBUMIN/GLOBULIN RATIO 0.9 (0.8-2.0); CALCIUM 10.1 mg/dL (8.4-10.2); CREATININE, SERUM 0.99 mg/dL (0.57-1.11); MAGNESIUM 2.2 MG/DL (1.3-2.1)
[2019-02-13 17:58] LABS: CREATINE KINASE MB 0.4 ng/mL (0-5.0)
[2019-02-13 18:01] LABS: B-TYPE NATRIURETIC PEPTIDE2 33.8 pg/mL (0-100)
--- NOTE | 2019-02-13 18:16 | NUR ---
PATIENT TO ROOM 3
[2019-02-13 18:18] LABS: BILIRUBIN,URINE SMALL (NEGATIVE); CLARITY,URINE SL CLOUDY (CLEAR); COLOR,URINE YELLOW (YELLOW); KETONES,URINE NEGATIVE (NEGATIVE); LEUKOCYTE ESTERASE ,URINE LARGE (NEGATIVE); NITRITE,URINE POSITIVE (NEGATIVE); PROTEIN,URINE DIPSTICK 2+ (NEGATIVE); URINE UROBILINOGEN 0.2 mg/dL (0.2 - 1)
[2019-02-13 18:37] LABS: BACTERIA,URINE MANY /HPF; EPITHELIAL CELLS,URINE RARE /LPF
--- NOTE | 2019-02-13 19:11 | Diagnostic Imaging Report ---
EXAMINATION: Head and cervical spine CT without contrast. HISTORY: Status post fall, trauma, pain COMPARISON: Head CT 10/14/2018 TECHNIQUE: Multidetector axial images were obtained without contrast from the foramen magnum to the vertex and through the cervical spine. The images were reconstructed using brain and bone algorithms. Thin section brain images were reformatted into coronal and sagittal planes. Dose modulation, iterative reconstruction, and/or weight based adjustment of the mA/kV was utilized to reduce the radiation dose to as low as reasonably achievable. HEAD CT FINDINGS: Skull/scalp: No lytic or blastic lesions. No fractures. Parenchyma: Mild chronic microvascular ischemic changes, stable compared to prior study. No mass, hemorrhage or CT evidence of acute vascular insult. Brain volume: Normal for age. Ventricles: No hydrocephalus or displacement. Arteries: No density suggestive of thrombus. Dural sinuses: No abnormal density. Extra-axial spaces: No abnormal density. Foramen magnum: No mass, Chiari malformation, or basilar invagination. Sella: No obvious mass. Paranasal/mastoid sinuses: Status post endoscopy paranasal sinuses surgery with opacification of the anterior ethmoidal air cells mainly on the left side. CERVICAL SPINE CT FINDINGS: Alignment:Normal alignment and lordosis. Soft tissues: Normal. Vertebrae: Normal height and density. No acute fracture, infection or neoplasm. Degenerative changes: C1-C2: Normal C2-C3: Hypertrophy mainly on the left without stenoses. C3-C4: Facet arthrosis mainly on the right without stenoses. C4-C5: Disc osteophyte complex formation, bilateral uncovertebral and facet arthropathy. Moderate right and mild left foraminal stenoses. C5-C6: Disc osteophyte complex formation, bilateral uncovertebral hypertrophy. Mild spinal canal and bilateral foraminal stenoses. C6-C7: Disc osteophyte complex formation, bilateral uncovertebral and facet arthrosis. Mild left foraminal stenosis. Minimal anterolisthesis. C7-T1: Normal IMPRESSION: Head CT: 1. No acute postraumatic intracranial hemorrhage. 2. Mild chronic microvascular ischemic changes. Cervical spine CT: 1. No acute fractures or dislocations. 2. Chronic degenerative changes as described. Note: Acute post traumatic spinal cord, vascular or ligamentous injury cannot adequately be assessed with CT. Signed by: Dr. Priyanka Taylor M.D. on 02/13/2019 7:08 PM
[2019-02-13] MEDS ORDERED: CEFTRIAXONE SOD 1 GM/NS 50 ML 50 ML IV ONE (19:30)
[2019-02-13] MEDS ORDERED: MEROPENEM 1GM 100 ML IV SCH (20:00)
--- NOTE | 2019-02-13 20:14 | Diagnostic Imaging Report ---
EXAMINATION: CHEST SINGLE (PORTABLE) INDICATION: Fever, nausea, vomiting COMPARISON: Chest radiograph 01/12/2019, abdominal CT 02/13/2019 FINDINGS: AP view TUBES and LINES: None. LUNGS: Lungs are well inflated. Lungs are clear. There is no evidence of pneumonia or pulmonary edema. PLEURA: No pleural effusion or pneumothorax. HEART AND MEDIASTINUM: The cardiomediastinal silhouette is unremarkable. Aortic arch calcifications BONES AND SOFT TISSUES: No acute osseous lesion. Soft tissues are unremarkable. UPPER ABDOMEN: No free air under the diaphragm. Moderate gastric hiatal hernia. IMPRESSION: No acute thoracic radiographic abnormality. Moderate gastric hiatal hernia. Signed by: Arturo Rose DO on 02/13/2019 8:10 PM
--- NOTE | 2019-02-13 20:16 | Diagnostic Imaging Report ---
EXAM: CT Abdomen and Pelvis WITHOUT contrast, with oral contrast INDICATION: Fall, fever, nausea vomiting COMPARISON: Abdominal CT 10/14/2018 TECHNIQUE: Abdomen and pelvis were scanned utilizing a multidetector helical scanner from the lung base to the pubic symphysis without administration of IV contrast. Absence of intravenous contrast decreases sensitivity for detection of focal lesions and vascular pathology. Coronal and sagittal reformations were obtained. Routine protocol was performed. IV CONTRAST: None ORAL CONTRAST: Redicat COMPLICATIONS: None RADIATION DOSE: Total DLP: 209 mGy*cm Estimated effective dose: (DLP x 0.015 x size factor) mSv CTDIvol has been reviewed. It is below the limits set by the Radiation Protocol Committee (RPC). Dose modulation, iterative reconstruction, and/or weight based adjustment of the mA/kV was utilized to reduce the radiation dose to as low as reasonably achievable. FINDINGS: LINES and TUBES: None. LOWER THORAX: Aortic valve and mitral annular calcifications. HEPATOBILIARY: No focal hepatic lesions. No biliary ductal dilation. GALLBLADDER: There are cholecystectomy clips. SPLEEN: No splenomegaly. PANCREAS: No focal masses or ductal dilatation. ADRENALS: No adrenal nodules KIDNEYS/URETERS: No hydronephrosis. Multiple bilateral renal cysts, similar compared to abdominal CT on 10/14/2018. Punctate calcification in the right renal interpolar parenchyma. Punctate calcification in a left renal segmental vessel. GI TRACT: Moderate hiatal hernia. Masslike semicircumferential 2 cm proximal gastric mural thickening (series 2 image 15, coronal series 301 image 39. Moderate colonic stool burden. No abnormal distention, or evidence of bowel obstruction. Appendix is not clearly identified. There is however no fat stranding or adenopathy in the right lower quadrant to suggest appendicitis. PELVIC ORGANS/BLADDER: Hysterectomy. No adnexal masses. LYMPH NODES: No lymphadenopathy. VESSELS: There is mild atherosclerotic disease in the aorta and major arterial branches. PERITONEUM / RETROPERITONEUM: No free air or fluid. BONES: There are degenerative changes in the spine hips and pelvis, with ankylotic changes in the lower lumbar spine. Low bone mineral density. SOFT TISSUES: There is a fat containing para-umbilical hernia. IMPRESSION: 1. Masslike 2 cm proximal gastric mural thickening, gastritis or neoplasia are considerations. Recommend gastroenterology referral. 2. Moderate gastric hiatal hernia 3. Moderate colonic stool burden, correlate for constipation. 4. Distal colonic diverticulosis, without evidence of diverticulitis. 5. Multiple bilateral renal cysts, incompletely characterized on this noncontrast CT. Recommend outpatient renal ultrasound for further evaluation. Signed by: Arturo Rose DO on 02/13/2019 8:13 PM
[2019-02-13] MEDS: SODIUM CHLORIDE 0.9% 1000ML 1,000 ML IV SCH (20:35)
[2019-02-13] MEDS ORDERED: ONDANSETRON HCL INJ 2MG/ML 2ML 2 MG/ML VIAL IV PRN (21:00)
[2019-02-13] MEDS: INSULIN REGULAR, HUMAN 100 UNIT/1 ML 3ML VIAL SQ SCH (21:00)
[2019-02-13] MEDS ORDERED: DEXTROSE 50% SYRINGE 50 ML IV PRN (21:00)
[2019-02-13] MEDS: CEFTRIAXONE SOD 1 GM/NS 50 ML 50 ML IV SCH (21:04)
--- OUTSIDE RECORDS SUMMARY | 2019-02-13 21:04 | XMS REPORT | Continuity of Care Document ---
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 Name Role Phone Smartsy Unavailable Unavailable Problems Problem Status Onset Date Classification Date Reported Comments Source Rhabdomyolysis Active Problem 11/30/2018 [facility] UTI Active Problem 10/31/2018 [facility] Urinary tract infection Active Problem 11/30/2018 [facility] Medications Medication Details Route Status Patient Instructions Ordering Provider Order Date Source Nitrofurantoin Macrocrystal (Nitrofurantoin) 50 Mg Capsule, 50 Mg Oral Daily Active 07/27/2018 [facility] Phenazopyridine Hcl 100 Mg Tablet, 100 Mg Oral Three Times A Day Active 07/27/2018 [facility] Fluticasone Propionate 16 Gm [place].susp As Needed as needed for Allergy Active [facility] Glipizide (Glipizide Xl) 2.5 Mg Tab.osm.24 Daily Active [facility] Metformin Hcl 500 Mg Tablet Daily Active 1 tablet in the am. 2 tablets in the evening [facility] Omeprazole 40 Mg Capsule.dr Daily Active [facility] Quinapril Hcl 20 Mg Tablet Daily Active [facility] Simvastatin 10 Mg Tablet Daily Active [facility] Allergies, Adverse Reactions, Alerts Substance Category Reaction Severity Reaction type Status Date Reported Comments Source Iodine HIVES Mild Allergy to Substance Active 11/10/2018 [facility] Ibuprofen LIVER PROBLEMS Mild Allergy to Substance Active 11/30/2018 [facility] Immunizations No Data Provided for This Section Results Order Name Results Value Reference Range Date Interpretation Comments Source Capillary blood glucose measurement by glucometer (mass/volume) 92 70 - 120 10/21/2018 [facility] Blood leukocytes automated count (number/volume) 5.64 4.8 - 10.8 10/19/2018 [facility] Blood erythrocytes automated count (number/volume) 3.03 3.6 - 5.1 10/19/2018 [facility] Blood hemoglobin measurement (moles/volume) 8.4 12.0 - 16.0 10/19/2018 [facility] Automated blood hematocrit (volume fraction) 26.2 34.2 - 44.1 10/19/2018 [facility] Automated erythrocyte mean corpuscular volume 86.5 81 - 99 10/19/2018 [facility] Automated erythrocyte mean corpuscular hemoglobin (mass per erythrocyte) 27.7 28 - 32 10/19/2018 [facility] Automated erythrocyte mean corpuscular hemoglobin concentration measurement (mass/volume) 32.1 31 - 35 10/19/2018 [facility] RDW BldCo-Rto 13.8 11.7 - 14.4 10/19/2018 [facility] Automated blood platelet count (count/volume) 279 140 - 360 10/19/2018 [facility] Automated blood segmented neutrophil count as percentage of total leukocytes 55.0 38.7 - 80.0 10/19/2018 [facility] Automated blood lymphocyte count as percentage ot total leukocytes 28.7 18.0 - 39.1 10/19/2018 [facility] Automated blood monocyte count as percentage of total leukocytes 12.4 4.4 - 11.3 10/19/2018 [facility] Automated blood eosinophil count as percentage of total leukocytes 3.0 0.0 - 6.0 10/19/2018 [facility] Automated blood basophil count as percentage of total leukocytes 0.4 0.0 - 1.0 10/19/2018 [facility] IM GRANULOCYTES % 0.5 0.0 - 1.0 10/19/2018 [facility] Automated blood neutrophil count 3.1 2.1 - 6.9 10/19/2018 [facility] Blood lymphocytes count (number/volume) 1.6 1.0 - 3.2 10/19/2018 [facility] Blood monocytes automated count (number/volume) 0.7 0.2 - 0.8 10/19/2018 [facility] Automated blood eosinophil count 0.2 0.0 - 0.4 10/19/2018 [facility] Automated blood basophil count (count/volume) 0.0 0.0 - 0.1 10/19/2018 [facility] Absolute Immature Granulocyte (auto 0.03 0 - 0.1 10/19/2018 [facility] Differential Total Cells Counted 100 10/19/2018 [facility] Manual blood neutrophils/100 leukocytes 62 40 - 74 10/19/2018 [facility] Manual blood lymphocytes/100 leukocytes 21 19 - 48 10/19/2018 [facility] Manual blood monocytes/100 leukocytes 11 3.4 - 9.0 10/19/2018 [facility] Manual blood eosinophil count as percentage of total leukocytes 3 0 - 7 10/19/2018 [facility] Manual basophil percentage 1 0 - 1.5 10/19/2018 [facility] Blood lymphocytes variant count (number/volume) 2 10/19/2018 [facility] Blood platelets count by estimate (number/volume) ADEQUATE 10/19/2018 [facility] Platelet morphology NORMAL 10/19/2018 [facility] Blood hypochromia detection by light microscopy MODERATE 10/19/2018 [facility] Blood anisocytosis detection by light microscopy SLIGHT 10/19/2018 [facility] RBC morphology NORMAL 10/19/2018 [facility] Serum or plasma sodium measurement (moles/volume) 137 136 - 145 10/19/2018 [facility] Serum or plasma potassium measurement (moles/volume) 3.3 3.5 - 5.1 10/19/2018 [facility] Serum or plasma chloride measurement (moles/volume) 103 98 - 107 10/19/2018 [facility] Serum or plasma carbon dioxide, total measurement (moles/volume) 28 22 - 29 10/19/2018 [facility] Serum or plasma anion gap 9.3 8 - 16 10/19/2018 [facility] Serum or plasma urea nitrogen measurement (mass/volume) 8 7 - 26 10/19/2018 [facility] Serum or plasma creatinine measurement (mass/volume) 0.65 0.57 - 1.11 10/19/2018 [facility] Serum or plasma urea nitrogen/creatinine mass ratio 12 6 - 25 10/19/2018 [facility] Estimated glomerular filtration rate (GFR) determination > 60 60 10/19/2018 [facility] Glucose measurement 92 74 - 118 10/19/2018 [facility] Serum or plasma calcium measurement (mass/volume) 8.8 8.4 - 10.2 10/19/2018 [facility] Urine color determination YELLOW YELLOW 10/14/2018 [facility] Urine clarity SL CLOUDY CLEAR 10/14/2018 [facility] Specific gravity of Urine by Test strip 1.005 1.010 - 1.025 10/14/2018 [facility] Urine pH measurement by automated test strip 7 5 - 7 10/14/2018 [facility] Urine leukocyte esterase detection by dipstick 2+ NEGATIVE 10/14/2018 [facility] Urine nitrite detection NEGATIVE NEGATIVE 10/14/2018 [facility] Urine protein measurement by test strip (mass/volume) 2+ NEGATIVE 10/14/2018 [facility] Urine glucose detection NEGATIVE NEGATIVE 10/14/2018 [facility] Urine ketones detection by automated test strip NEGATIVE NEGATIVE 10/14/2018 [facility] Urine urobilinogen measurement by test strip (mass/volume) 0.2 0.2 - 1 10/14/2018 [facility] Urine total bilirubin measurement (mass/volume) NEGATIVE NEGATIVE 10/14/2018 [facility] Urine erythrocytes detection 3+ NEGATIVE 10/14/2018 [facility] Automated urine sediment leukocyte count by microscopy (number/high power field) >50 0 - 5 10/14/2018 [facility] Erythrocytes detection in urine sediment by light microscopy 21-50 0 - 5 10/14/2018 [facility] Bacteria detection in urine sediment by light microscopy MANY NONE 10/14/2018 [facility] Epithelial cells detection in urine sediment by light microscopy RARE NONE 10/14/2018 [facility] Transitional cells detection in urine sediment by light microscopy FEW NONE 10/14/2018 [facility] Prothrombin time (PT) in platelet poor plasma by coagulation assay 15.4 11.9 - 14.5 10/14/2018 [facility] INR in Platelet poor plasma by Coagulation assay 1.16 10/14/2018 [facility] Activated partial thromboplastin time (aPTT) in platelet poor plasma bycoagulation assay 27.0 23.8 - 35.5 10/14/2018 [facility] Influenza virus A and B antigen identification by immunofluorescence NEGATIVE NEGATIVE 10/14/2018 [facility] Lactic Acid Level 12.6 4.5 - 19.8 10/14/2018 [facility] Serum or plasma magnesium measurement (mass/volume) 2.0 1.3 - 2.1 10/14/2018 [facility] Serum or plasma total bilirubin measurement (mass/volume) 0.7 0.2 - 1.2 10/14/2018 [facility] Aspartate Amino Transf (AST/SGOT) 26 5 - 34 10/14/2018 [facility] Serum or plasma alanine aminotransferase measurement (enzymatic activity/volume) 13 0 - 55 10/14/2018 [facility] Serum or plasma protein measurement (mass/volume) 7.8 6.5 - 8.1 10/14/2018 [facility] Serum or plasma albumin measurement (mass/volume) 3.7 3.5 - 5.0 10/14/2018 [facility] Plasma globulin measurement (mass/volume) 4.1 2.3 - 3.5 10/14/2018 [facility] Serum or plasma albumin/globulin mass ratio 0.9 0.8 - 2.0 10/14/2018 [facility] Serum or plasma alkaline phosphatase measurement (enzymatic activity/volume) 65 40 - 150 10/14/2018 [facility] BNP Bld-mCnc 93.8 0 - 100 10/14/2018 [facility] Serum or plasma creatine kinase measurement (enzymatic activity/volume) 628 29 - 168 10/14/2018 [facility] Serum or plasma creatine kinase MB measurement (mass/volume) 1.00 0 - 5.0 10/14/2018 [facility] Troponin I measurement by highly sensitive enzyme immunoassay 0.017 0 - 0.300 10/14/2018 [facility] Serum or plasma amylase measurement (enzymatic activity/volume) 78 25 - 125 10/14/2018 [facility] Serum or plasma lipase measurement (enzymatic activity/volume) 10 8 - 78 10/14/2018 [facility] Streptococcus pyogenes antigen detection in throat NEGATIVE NEGATIVE 10/14/2018 [facility] Capillary blood glucose measurement by glucometer (mass/volume) 95 70 - 120 07/28/2018 [facility] Blood leukocytes automated count (number/volume) 9.20 4.8 - 10.8 07/27/2018 [facility] Blood erythrocytes automated count (number/volume) 3.81 3.6 - 5.1 07/27/2018 [facility] Blood hemoglobin measurement (moles/volume) 10.8 12.0 - 16.0 07/27/2018 [facility] Automated blood hematocrit (volume fraction) 33.7 34.2 - 44.1 07/27/2018 [facility] Automated erythrocyte mean corpuscular volume 88.5 81 - 99 07/27/2018 [facility] Automated erythrocyte mean corpuscular hemoglobin (mass per erythrocyte) 28.3 28 - 32 07/27/2018 [facility] Automated erythrocyte mean corpuscular hemoglobin concentration measurement (mass/volume) 32.0 31 - 35 07/27/2018 [facility] RDW BldCo-Rto 13.0 11.7 - 14.4 07/27/2018 [facility] Automated blood platelet count (count/volume) 304 140 - 360 07/27/2018 [facility] Automated blood segmented neutrophil count as percentage of total leukocytes 59.4 38.7 - 80.0 07/27/2018 [facility] Automated blood lymphocyte count as percentage ot total leukocytes 27.0 18.0 - 39.1 07/27/2018 [facility] Automated blood monocyte count as percentage of total leukocytes 7.7 4.4 - 11.3 07/27/2018 [facility] Automated blood eosinophil count as percentage of total leukocytes 4.9 0.0 - 6.0 07/27/2018 [facility] Automated blood basophil count as percentage of total leukocytes 0.7 0.0 - 1.0 07/27/2018 [facility] IM GRANULOCYTES % 0.3 0.0 - 1.0 07/27/2018 [facility] Automated blood neutrophil count 5.5 2.1 - 6.9 07/27/2018 [facility] Blood lymphocytes count (number/volume) 2.5 1.0 - 3.2 07/27/2018 [facility] Blood monocytes automated count (number/volume) 0.7 0.2 - 0.8 07/27/2018 [facility] Automated blood eosinophil count 0.5 0.0 - 0.4 07/27/2018 [facility] Automated blood basophil count (count/volume) 0.1 0.0 - 0.1 07/27/2018 [facility] Absolute Immature Granulocyte (auto 0.03 0 - 0.1 07/27/2018 [facility] Serum or plasma sodium measurement (moles/volume) 137 136 - 145 07/27/2018 [facility] Serum or plasma potassium measurement (moles/volume) 4.2 3.5 - 5.1 07/27/2018 [facility] Serum or plasma chloride measurement (moles/volume) 102 98 - 107 07/27/2018 [facility] Serum or plasma carbon dioxide, total measurement (moles/volume) 27 22 - 29 07/27/2018 [facility] Serum or plasma anion gap 12.2 8 - 16 07/27/2018 [facility] Serum or plasma urea nitrogen measurement (mass/volume) 17 7 - 26 07/27/2018 [facility] Serum or plasma creatinine measurement (mass/volume) 0.78 0.57 - 1.11 07/27/2018 [facility] Serum or plasma urea nitrogen/creatinine mass ratio 22 6 - 25 07/27/2018 [facility] Estimated glomerular filtration rate (GFR) determination > 60 60 07/27/2018 [facility] Glucose measurement 98 74 - 118 07/27/2018 [facility] Serum or plasma calcium measurement (mass/volume) 10.0 8.4 - 10.2 07/27/2018 [facility] Bacterial urine culture Urine Culture [facility] Pathology Reports No Data Provided for This [...] Date Status Source Registered Surgical Day Care [id number] ARDEN LANDIN MD 07/28/2018 [facility] Departed Emergency Room [id number] RINA SALMON MD 09/07/2018 09/07/2018 [facility] Departed Emergency Room [id number] ОЛЕГ MARTIN MD 09/07/2018 09/07/2018 [facility] Discharged Inpatient [id number] OSCAR HUNT MD 10/15/2018 10/21/2018 [facility] Departed Emergency Room [id number] RINA SALMON MD 10/30/2018 10/30/2018 [facility] Departed Emergency Room [id number] JUANCARLOS COLE MD 11/03/2018 11/03/2018 [facility] Departed Emergency Room [id number] RINA SALMON MD 11/10/2018 11/10/2018 [facility] Departed Emergency Room [id number] RINA SALMON MD 11/30/2018 11/30/2018 [facility] Procedures Procedure Code Date Perfomer Comments Source INSERT TEMP BLADDER CATH [id number] 10/30/2018 [facility] INSERTION OF INFUSION DEV INTO SUP VENA CAVA, PERC APPROACH [id number] 10/19/2018 [facility] Computed tomography of brain without radiopaque contrast [id number] 10/14/2018 [facility] CT of abdomen and pelvis without contrast [id number] 10/14/2018 [facility] CARPAL TUNNEL SURGERY [id number] 07/28/2018 [facility] X-ray of chest, two views [id number] 07/27/2018 [facility] Assessment and Plan No Data Provided for This Section Plan of Care Plan of Care Date Source Discharge Date 11/30/18 12:34pm Disposition HOME, SELF-CARE Condition at Discharge Stable Instructions/Education Provided Urinary Retention Urinary Tract Infection - Women Forms Provided Work/School Excuse Prescriptions See Medication Section Referrals MATY QUIROZ MD Address: [address] [place] [id number] Additional Instructions/Education Follow-up with Urologist within 1 week. Return to ER for new or worsening symptoms. 11/30/2018 [facility] Discharge Date 10/30/18 8:27pm Disposition HOME, SELF-CARE Condition at Discharge Stable Instructions/Education Provided [facility] Forms Provided Work/School Excuse Prescriptions See Medication Section Additional Instructions/Education FOLLOW UP WITH DR. CHAWLA SCHEDULED NEXT 11/04/2018 10/30/2018 [facility] Discharge Date 09/07/18 7:30pm Disposition ELOPED Condition at Discharge Other Prescriptions See Medication Section 09/07/2018 [facility] Social History Social History Date Source Social History Problem Response Recorded Date/Time Onset Date Status Hx Psychiatric Problems No 11/26/2011 10:53am Not Applicable Not Applicable Smoking Status Start Date Stop Date Never Smoker 11/30/2018 [facility] Family History No Data Provided for This Section Advance Directives Order Name Results Value Date Source Advance Directives Advance Directives Directive Response Recorded Date/Time Does the patient have an advance directive? Yes 10/14/18 10:47pm If yes, is advance directive on file with [facility]? No 10/14/18 10:47pm If not on file with [facility] will patient provide a copy? Yes 10/14/18 10:47pm 11/30/2018 [facility] Advance Directives Advance Directives Directive Response Recorded Date/Time Does the patient have an advance directive? Yes 10/14/18 10:47pm If yes, is advance directive on file with [facility]? No 10/14/18 10:47pm If not on file with [facility] will patient provide a copy? Yes 10/14/18 10:47pm Do you have a Directive to Physician? No 10/30/18 7:27pm Do you have a Medical Power of Shirt Hemmer? No 10/30/18 7:27pm Do you have an [...] rights and responsibilities? Yes 10/30/18 7:27pm 10/30/2018 [facility] Advance Directives Advance Directives Directive Response Recorded Date/Time Does the patient have an advance directive? Yes 07/27/18 9:45am If yes, is advance directive on file with [facility]? No 11/26/11 10:53am If not on file with [facility] will patient provide a copy? Yes 07/27/18 9:45am 09/07/2018 [facility] Functional Status No Data Provided for This Section
[2019-02-13 21:55] VITALS: BP 158/82
--- NOTE | 2019-02-13 21:55 | NUR ---
RECEIVED PATIENT TO ROOM FROM ED VIA STRETCHER, PATIENT AMBULATED TO BED. WALKER PROVIDED AT BEDSIDE D/T PATIENT FALLING AT HOME. NO PAIN REPORTED AT THIS TIME, PATIENT STATES SHE DOES NOT FEEL PAIN IF SHE LAYS STILL. HAS SOME PAIN IN MID-RIGHT ABDOMEN AND UNDER LEFT RIBS WITH MOVEMENT. NO S&S OF DISTRESS. PATIENT NOTED TO HAVE A BM, CLEANED AND PROVIDED WITH NEW BRIEF, PATIENT PARTICIPATED IN CLEANING HERSELF. LUNG SOUNDS CLEAR. BOWEL SOUNDS ACTIVE. NO EDEMA NOTED. L AC 20G IV ASYMPTOMATIC, INTACT, AND PATENT. PATIENT REMINDED OF NPO STATUS, VERBALIZED UNDERSTANDING. BED LOCKED IN LOWEST POSITION, SIDE RAILS UPX2, CALL LIGHT IN REACH.
--- NOTE | 2019-02-13 22:30 | NUR ---
PATIENT'S TEMP NOTED TO BE 101.3, TYLENOL GIVEN ORDERED WITH SMALL SIP OF WATER. WILL CONTINUE TO MONITOR.
[2019-02-13] MEDS: ACETAMINOPHEN 325 MG TAB PO PRN (22:35)
[2019-02-14] VITALS (8 sets, daily range): BP systolic 128–157; BP diastolic 68–71
--- NOTE | 2019-02-14 02:10 | NUR ---
MD Aliza SONI IN WITH PATIENT, NEW ORDERS RECEIVED.
[2019-02-14] MEDS ORDERED: PANTOPRAZOLE 40 MG 10ML VIAL IV STA (02:16)
[2019-02-14 03:03] LABS: CREATINE KINASE MB 0.6 ng/mL (0-5.0)
--- NOTE | 2019-02-14 06:22 | NUR ---
STRAIGHT CATH PERFORMED TO OBTAIN A CULTURE AND SENSITIVITY SAMPLE. STERILE PROCEDURE FOLLOWED. 900 ML DRAINED FROM BLADDER, YELLOW, CLOUDY, FOUL SMELLING URINE NOTED. PATIENT REPORTS PAIN IN BLADDER AREA MUCH BETTER AFTER DRAINING URINE. SPECIMEN TAKEN TO LAB.
[2019-02-14] MEDS: INSULIN REGULAR, HUMAN 100 UNIT/1 ML 3ML VIAL SQ SCH ×4 (07:30→20:21)
[2019-02-14] MEDS: PANTOPRAZOLE 40 MG 10ML VIAL IV SCH ×2 (08:56→20:57)
[2019-02-14 09:07] LABS: CREATINE KINASE MB 0.8 ng/mL (0-5.0)
[2019-02-14] MEDS: CEFTRIAXONE SOD 1 GM/NS 50 ML 50 ML IV SCH ×2 (10:40→20:57)
[2019-02-14] MEDS: ACETAMINOPHEN 325 MG TAB PO PRN (14:21)
[2019-02-14] MEDS: SODIUM CHLORIDE 0.9% 1000ML 1,000 ML IV SCH (14:21)
[2019-02-14] MEDS: ENOXAPARIN 30 MG/0.3 ML SYR SC SCH (17:06)
--- NOTE | 2019-02-14 18:00 | Diagnostic Imaging Report ---
BILATERAL HIPS - 4 Image(s) HISTORY: Fall, rule out fracture COMPARISON: Bone windows from CT of the pelvis February 13, 2019. FINDINGS: Sensitivity limited by portable technique. Soft tissue attenuation partially limits sensitivity of the exam. Some of the osseous structures are partially obscured by stool and overlying bowel gas. Bones: No acute displaced fracture. No aggressive osseous lesion. 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 Joints: Similar appearing moderate degenerative changes of the pubic symphysis. Minimal bilateral degenerative changes of the hips. Soft tissues: The soft tissues appear unremarkable. IMPRESSION: 1. No acute radiographic abnormality. No radiographic evidence of an interval change from the CT of the pelvis from February 13, 2019. If signs and symptoms persist, recommend a nonemergent MRI of the pelvis without contrast to evaluate for an insufficiency fracture. 2. 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 Signed by: Dr. Braulio Bowden D.O., M.M.M. on 02/14/2019 5:56 PM
--- NOTE | 2019-02-14 18:15 | NUR ---
patient resting in bed, assisted her to walk to restroom, denies any SOB or chest pain. call light in reach
--- NOTE | 2019-02-14 19:00 | NUR ---
RECEIVED PATIENT IN REPORT. PATIENT RESTING IN BED. NO PAIN REPORTED. NO S&S OF DISTRESS NOTED. BED LOCKED IN LOWEST POSITION, SIDE RAILS UPX2, CALL LIGHT IN REACH.
--- NOTE | 2019-02-14 20:30 | NUR ---
ASSISTED PATIENT TO TOILET. WHEN PATIENT STOOD UP, LOST CONTROL OF BLADDER. URINE NOTED TO BE LIGHT JOE, FOUL ODOR. CLEANED PATIENT, INCLUDING LEGS AND FEET. PROVIDED PATIENT WITH NEW SOCKS AND BRIEFS. PATIENT SAFELY BACK IN BED. BED LOCKED IN LOWEST POSITION, SIDE RAILS UPX2, CALL LIGHT IN REACH.
[2019-02-14] MEDS: SIMVASTATIN 20 MG TAB PO SCH (20:57)
--- NOTE | 2019-02-14 22:40 | History and Physical ---
CHIEF COMPLAINT: Mechanical fall, abdominal pain, nausea and vomiting. HISTORY OF PRESENT ILLNESS: This is an 83-year-old female, very poor historian, reports to the emergency room after having a mechanical fall that occurred at home. The patient reports that she was walking to her bedroom and suddenly, she fell on the ground presumably from a mechanical fall due to a trip on an actual object on the ground. She is very poor historian, unable to give me a true story. She denies any chest pain or any palpitations when this occurred. No seizure-like activity, stroke-like symptoms or any weakness. No evidence of any slurred speech according to the patient. She reports she did not lose any consciousness and she just states that she was on the ground, but did not lose consciousness, but required someone to come to the house to pick her up. She thinks that she was on the ground for about 15 minutes. After that she reports having some abdominal pain, nausea and vomiting. Apparently, the patient was recently admitted earlier this year according to her with similar findings, but at that time she was found to have urinary tract infection. The patient is seen and evaluated at bedside on the medical floor. She is currently doing well with no other issues at this time. GI has been consulted, scheduled for EGD on tomorrow. REVIEW OF SYSTEMS: Pertinent positives: Mechanical fall, abdominal pain, nausea, and vomiting. Pertinent negatives: Denies any chest pain, palpitation, dysuria, hematuria, frequency, urgency, lightheadedness, dizziness, cough, congestion, fever, or any other complaints. The rest of 14-point review of systems have been reviewed with the patient and are negative. ALLERGIES: IBUPROFEN AND IODINE. MEDICATIONS: She takes quinapril 20 mg daily, simvastatin 10 mg daily, fluticasone 50 mcg p.r.n. for allergies, metformin 500 mg daily and glipizide 2.5 mg daily. PAST MEDICAL HISTORY: Reportedly, type 2 diabetes, hypertension, history of mechanical falls in the past. PAST SURGICAL HISTORY: Reports none. FAMILY HISTORY: Hypertension and diabetes. SOCIAL HISTORY: No drugs. No alcohol. Does not smoke. Good social support. PHYSICAL EXAMINATION: VITAL SIGNS: Temperature is 98.2, her T-max 101.3, pulse 82, respiratory rate is 16, blood pressure is 157/79, and pulse ox 98% on room air. LAB FINDINGS: Show white count 11.7, hemoglobin 11.3, hematocrit is 34.5, platelets of 294. PT 14, INR 1.1, PTT 36. Chemistry; sodium 135, potassium is 4, chloride 97, bicarbonate 26, anion gap of 16, BUN 17, creatinine is 0.99. Lactic acid is 11, which is normal. Glucose 117, total bilirubin is 0.7, AST is 18, and ALT 11. Troponins were all negative. BNP 33, albumin is 4. Lipase level was 11. Urinalysis consistent with UTI. Urine cultures are pending. IMAGING STUDIES: Chest x-ray shows moderate gastric hiatal hernia, no acute thoracic radiographic abnormalities. CT abdomen and pelvis, there is a masslike 2 cm proximal gastric mural thickening and gastritis or neoplasm consideration. GI was consulted. Moderate gastric hiatal hernia. Moderate colonic stool burden correlate with constipation. Distal colonic diverticulosis without evidence of diverticulitis. Multiple bilateral renal cysts include incompletely characterized CT study. Needs outpatient followup. CT cervical spine was found to be negative. CT head was also found to be negative. PHYSICAL EXAMINATION: GENERAL: Not in acute distress, alert and oriented x3. Cooperative on examination. HEENT: Head is normocephalic and atraumatic. Eyes; pupils are equal, round, and reactive to light bilaterally. Extraocular movements are intact bilaterally. NECK: Supple. Good range of motion throughout. Throat, no evidence of erythema or exudates in the posterior pharynx. Has poor dentition. PULMONARY: Clear to auscultation bilaterally. No wheezing, rales, or rhonchi. No crackles appreciated. CARDIOVASCULAR: Positive S1, S2. No murmurs, rubs, or gallops appreciated. ABDOMEN: Soft, nondistended, and nontender to palpation. Bowel sounds present. MUSCULOSKELETAL: Strength 5/5 throughout. No evidence of any muscle deficits on examination. No weakness appreciated. NEUROLOGIC: Cranial nerves II through XII grossly intact. No evidence of any neurological deficits on exam. SKIN: Intact. Warm to touch. Good cap refill. PSYCHIATRIC: Normal affect and mood. EXTREMITIES: No edema. Good range of motion throughout. IMPRESSION: 1. Sepsis secondary to underlying urinary tract infection with fever and leukocytosis. 2. Mechanical fall, likely secondary to underlying urinary tract infection. 3. Type 2 diabetes. 4. Hypertension. 5. Hyperlipidemia. 6. Abnormal CT abdomen and pelvis finding concerning for underlying gastric thickening with abdominal pain, nausea and vomiting. PLAN: At this time in relation to her underlying urinary tract infection, she is on IV antibiotics, ceftriaxone has been ordered. Urine cultures are pending. UA is consistent with UTI. She was febrile last night, currently afebrile. White count is still 11.7. In relation to her mechanical fall, this is all likely due to UTI, dehydration. We will get physical therapy to evaluate her closely. I will go ahead and order a CT pelvis which was now ordered in the emergency room. CT cervical neck and CT brain were found to be negative. In relation to her diabetes, put on insulin sliding scale, Accu-Cheks, monitor closely. In relation to abdominal pain, nausea, vomiting, and this gastric thickening on CT imaging, GI has been consulted and scheduled for EGD tomorrow. The patient denies any cardiac issues in the past, has not had any heart stents and also denies any chest pain or palpitations. Her troponins were found to be negative, no further workup needed at this time. The patient will likely end up in a long-term facility. She is on a regular diet and put on Lovenox for DVT prophylaxis. MD SARITA Shin/ANAHI /[id number]
[2019-02-15] VITALS (10 sets, daily range): BP systolic 140–163; BP diastolic 70–87
[2019-02-15 05:16] LABS: BASOPHILS % 0.4 % (0.0-1.0); EOSINOPHILS # (AUTO) 0.1 (0.0-0.4); EOSINOPHILS % 1.3 % (0.0-6.0); HEMATOCRIT 31.1 % (34.2-44.1); HEMOGLOBIN 9.8 g/dL (12.0-16.0); LYMPHOCYTES # (AUTO) 1.7 (1.0-3.2); LYMPHOCYTES % 20.9 % (18.0-39.1); MEAN CORPUSCULAR HEMOGLOBIN 27.6 pg (28-32); MEAN CORPUSCULAR HGB CONC 31.5 g/dL (31-35); MEAN CORPUSCULAR VOLUME 87.6 fL (81-99); MONOCYTES # (AUTO) 0.8 (0.2-0.8); MONOCYTES % 9.4 % (4.4-11.3); NEUTROPHILS # (AUTO) 5.5 (2.1-6.9); NEUTROPHILS % 67.6 % (38.7-80.0); PLATELET COUNT 231 x10e3/uL (140-360); RED BLOOD COUNT 3.55 x10e6/uL (3.6-5.1); RED CELL DISTRIBUTION WIDTH 13.8 % (11.7-14.4)
[2019-02-15 05:34] LABS: ANION GAP 11.4 mmol/L (8-16); BLOOD UREA NITROGEN 7 mg/dL (7-26); BUN/CREATININE RATIO 9 (6-25); CALCIUM 9.3 mg/dL (8.4-10.2); CARBON DIOXIDE 26 mmol/L (22-29); CHLORIDE 102 mmol/L (98-107); EST GLOMERULAR FILTRATION RATE > 60 ML/MIN (60-); GLUCOSE 114 mg/dL (74-118); POTASSIUM 3.4 mmol/L (3.5-5.1); SODIUM 136 mmol/L (136-145)
[2019-02-15] MEDS: INSULIN REGULAR, HUMAN 100 UNIT/1 ML 3ML VIAL SQ SCH ×4 (07:30→20:40)
[2019-02-15] MEDS: SODIUM CHLORIDE 0.9% 1000ML 1,000 ML IV SCH ×2 (07:31→16:52)
[2019-02-15] MEDS: QUINAPRIL HCL 20 MG TAB PO SCH (08:49)
[2019-02-15] MEDS: PANTOPRAZOLE 40 MG 10ML VIAL IV SCH ×2 (09:02→21:10)
[2019-02-15] MEDS: CEFTRIAXONE SOD 1 GM/NS 50 ML 50 ML IV SCH ×2 (09:02→21:10)
[2019-02-15] MEDS ORDERED: POTASSIUM CHLORIDE 20 MEQ TAB CR PO STA (11:42)
--- NOTE | 2019-02-15 13:41 | NUR ---
Referral faxed to [facility] at [phone] Gina Morley with [facility] was notified of referral. Per Dr. Marshall, anticipate discharge tomorrow.
--- NOTE | 2019-02-15 14:24 | Progress Note ---
DATE: Medicine Progress Note SUBJECTIVE: She is scheduled for EGD later today. No overnight events. PHYSICAL EXAMINATION: VITAL SIGNS: Temperature 98.3, pulse 80, respiratory rate is 18, blood pressure 142/71, and pulse ox 100% on room air. GENERAL: Not in acute distress. Alert and oriented x3. Cooperative on examination. HEENT: Head; normocephalic, atraumatic. Eyes; pupils are equal, round, and reactive to light bilaterally. Extraocular movements intact bilaterally. Throat; no evidence of erythema or exudates in the posterior pharynx. Has poor dentition. NECK: Supple. Good range of motion. PULMONARY: Clear to auscultation bilaterally. No wheezing, no rales, no rhonchi, no crackles appreciated. CARDIOVASCULAR: Positive S1 and S2. No murmurs, rubs, or gallops appreciated. ABDOMEN: Soft, nondistended, and nontender to palpation. Bowel sounds present. MUSCULOSKELETAL: Strength is 5/5 throughout. No evidence of any muscle deficits on examination. No weakness appreciated. NEUROLOGIC: Cranial nerves II through XII grossly intact. No evidence of any neurological deficits on exam. SKIN: Intact. Warm to touch. Good cap refill. PSYCHIATRIC: Normal affect and mood. EXTREMITIES: No edema. Good range of motion throughout. LABORATORY FINDINGS: Show white count was 8.1, hemoglobin 9.8, hematocrit is 31, and platelets of 231. Chemistry; sodium 136, potassium 3.4 replace, chloride 102, bicarb 26, anion gap of 11, BUN 7, creatinine is 0.8, glucose is 114, and calcium is 9.3. Urine culture, positive gram-negative bacilli noted pending ID and sensitivities. IMAGING STUDIES: Hip x-ray performed yesterday 02/14/2019, shows no acute radiographic abnormality. No radiographic evidence of any interval change from the CT of February 13, 2019. No signs of symptoms persistence. 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 There is no evidence of any fracture noted. IMPRESSION: 1. Sepsis secondary to underlying urinary tract infection with fever and leukocytosis. 2. Mechanical fall, likely due to underlying infection from urinary tract infection. 3. Type 2 diabetes. 4. Hypertension. 5. Hyperlipidemia and gastric thickening seen on imaging studies. Scheduled for EGD today, 02/15/2019. PLAN: At this time, her urine cultures positive for gram-negative bacilli. Awaiting final identification. Continue with IV antibiotics. Get physical therapy to work with the patient. The patient is currently ambulating well to the bathroom with no issues according to the nursing staff. Blood pressure and diabetes well managed and controlled. In relation to her gastric thickening, EGD scheduled for later today. We will get a.m. labs. Continue with a diet after the procedure and have on Lovenox for DVT prophylaxis. If the patient is stable by tomorrow, we will get the urine culture, cleared by GI. We will consider discharge home in the next 1 to 2 days. MD SARITA Shin/ANAHI /[id number]
[2019-02-15] MEDS ORDERED: PROPOFOL IV EMULSION 10 MG/ML 20 ML VIAL ONE (14:43)
--- NOTE | 2019-02-15 15:56 | NUR ---
Per Gina Morley with [facility], pt has been approved for home health services. [facility] [address], [address] [place] [address]
[2019-02-15] MEDS ORDERED: POTASSIUM CHLORIDE 20 MEQ TAB CR PO ONE (16:30)
[2019-02-15] MEDS: ENOXAPARIN 30 MG/0.3 ML SYR SC SCH (16:52)
[2019-02-15] MEDS: SIMVASTATIN 20 MG TAB PO SCH (21:10)
--- NOTE | 2019-02-15 23:12 | Operative Report ---
DATE OF PROCEDURE: 02/15/2019 SURGEON: Murali Gonzalez MD PROCEDURE: EGD with biopsies. INDICATIONS FOR PROCEDURE: Upper abdominal pain and nausea. MEDICATIONS: The patient was done under MAC, please see anesthesiologist's note. PROCEDURE IN DETAIL: With the patient in left lateral decubitus position, a flexible fiberoptic Olympus gastroscope was introduced into the esophagus under direct visualization without any difficulty. There were some patchy erythema noted in distal esophagus. There were some focal nodularity noted just below the GE junction and that was biopsied. The scope then was advanced with ease into the stomach traversing a large hiatal hernia. Mucosa overlying the antrum and the body revealed some diffuse erythema and low-grade to moderate edema. Biopsies were obtained and sent to stain for H pylori. Pylorus was of normal contour and shape, it was intubated with ease and the scope was advanced all the way to the second portion of the duodenum. The scope was then withdrawn slowly. Mucosa overlying the proximal second portion and the duodenal bulb appeared to be within normal limits. The scope was then withdrawn back into the stomach and retroflexed and the previously described hiatal hernia was also noted in the retroflexed position. The scope was then straightened out, it was subsequently withdrawn. The patient tolerated the procedure well. IMPRESSION: 1. Distal esophagitis, mild. 2. Focal nodularity hiatal hernia just below the GE junction, biopsied. 3. Large hiatal hernia. 4. Gastritis, biopsied. Biopsies sent to stain for Helicobacter pylori. PLAN: Follow up histology. Initiate Protonix 40 mg one p.o. q.a.m. before meals. Murali Gonzalez MD [facility]/ANAHI /[id number] cc: Slava Marshall MD
[2019-02-16] VITALS (9 sets, daily range): BP systolic 133–160; BP diastolic 63–89
[2019-02-16] MEDS: SODIUM CHLORIDE 0.9% 1000ML 1,000 ML IV SCH (06:01)
[2019-02-16] MEDS: INSULIN REGULAR, HUMAN 100 UNIT/1 ML 3ML VIAL SQ SCH ×4 (07:30→21:00)
[2019-02-16 08:06] LABS: BASOPHILS % 0.5 % (0.0-1.0); EOSINOPHILS # (AUTO) 0.2 (0.0-0.4); EOSINOPHILS % 3.7 % (0.0-6.0); HEMATOCRIT 31.1 % (34.2-44.1); HEMOGLOBIN 9.6 g/dL (12.0-16.0); LYMPHOCYTES # (AUTO) 1.8 (1.0-3.2); LYMPHOCYTES % 30.3 % (18.0-39.1); MEAN CORPUSCULAR HEMOGLOBIN 27.4 pg (28-32); MEAN CORPUSCULAR HGB CONC 30.9 g/dL (31-35); MEAN CORPUSCULAR VOLUME 88.6 fL (81-99); MONOCYTES # (AUTO) 0.6 (0.2-0.8); MONOCYTES % 10.2 % (4.4-11.3); NEUTROPHILS # (AUTO) 3.3 (2.1-6.9); PLATELET COUNT 271 x10e3/uL (140-360); RED BLOOD COUNT 3.51 x10e6/uL (3.6-5.1); RED CELL DISTRIBUTION WIDTH 13.9 % (11.7-14.4)
[2019-02-16 08:32] LABS: ANION GAP 11.9 mmol/L (8-16); BLOOD UREA NITROGEN 8 mg/dL (7-26); BUN/CREATININE RATIO 10 (6-25); CALCIUM 9.6 mg/dL (8.4-10.2); CARBON DIOXIDE 25 mmol/L (22-29); CHLORIDE 104 mmol/L (98-107); CREATININE, SERUM 0.83 mg/dL (0.57-1.11); EST GLOMERULAR FILTRATION RATE > 60 ML/MIN (60-); GLUCOSE 105 mg/dL (74-118); POTASSIUM 3.9 mmol/L (3.5-5.1); SODIUM 137 mmol/L (136-145)
[2019-02-16] MEDS: QUINAPRIL HCL 20 MG TAB PO SCH (08:39)
[2019-02-16] MEDS: PANTOPRAZOLE 40 MG 10ML VIAL IV SCH ×2 (08:39→21:35)
[2019-02-16] MEDS: CEFTRIAXONE SOD 1 GM/NS 50 ML 50 ML IV SCH (08:39)
[2019-02-16] MEDS: MEROPENEM 500MG/ NS 50ML 50 ML IV SCH ×2 (11:59→16:57)
--- NOTE | 2019-02-16 14:51 | Progress Note ---
DATE: 02/16/2019 Medicine Progress Note SUBJECTIVE: The patient underwent status post EGD, that showed evidence of esophagitis and gastritis. The patient is otherwise doing well today with no complaints. Urine culture came back to be ESBL E coli. PHYSICAL EXAMINATION: VITAL SIGNS: Temperature is 97.3, pulse is 87, respiratory rate is 18, blood pressure 160/65, pulse ox 99% on 2 L nasal cannula. GENERAL: Not in acute distress. Alert and oriented x3. Cooperative on examination. HEENT: Head; normocephalic, atraumatic. Eyes; pupils are equal, round, and reactive to light bilaterally. Extraocular movements intact bilaterally. Throat; no evidence of erythema or exudates in the posterior pharynx. Has poor dentition. NECK: Supple. Good range of motion. PULMONARY: Clear to auscultation bilaterally. No wheezing, no rales, no rhonchi, no crackles appreciated. CARDIOVASCULAR: Positive S1 and S2. No murmurs, rubs, or gallops appreciated. ABDOMEN: Soft, nondistended, and nontender to palpation. Bowel sounds present. MUSCULOSKELETAL: Strength is 5/5 throughout. No evidence of any muscle deficits on examination. No weakness appreciated. NEUROLOGIC: Cranial nerve II through XII grossly intact. No evidence of any neurological deficits on exam. SKIN: Intact. Warm to touch. Good cap refill. PSYCHIATRIC: Normal affect and mood. EXTREMITIES: No edema. Good range of motion throughout. LABORATORY FINDINGS: Show white count 5.9, hemoglobin 9.6, hematocrit is 31, platelets of 271. Chemistries reviewed and stable. MICROBIOLOGY: Shows ESBL E coli. It does have some sensitivities to Zosyn and Merrem as well. IMPRESSION: 1. Sepsis due to underlying extended spectrum beta-lactamases Escherichia coli urinary tract infection with fever and leukocytosis, improving. 2. Mechanical fall, likely secondary to underlying infection. 3. Type 2 diabetes. 4. Hypertension. 5. Abdominal pain, nausea, vomiting, status post esophagogastroduodenoscopy performed on 02/15/2019, that showed distal esophagitis, focal nodularity, hiatal hernia, in the gastroesophageal junction, large hiatal hernia, gastritis with biopsies performed. PLAN: At this time, we can change IV antibiotics to IV Merrem. Consult with ID. We will also consult with her urologist as she has urinary incontinence. As per EGD, results are above, continue with Protonix. Get a.m. labs. Lovenox for DVT prophylaxis. PT for ambulation. Continue with same plan of care. Discussed plan of care with nursing staff and Case Management. MD SARITA Shin/[facility] /[id number]
--- NOTE | 2019-02-16 16:01 | Consultation ---
DATE OF CONSULTATION: REASON FOR CONSULTATION: UTI. HISTORY OF PRESENT ILLNESS: Ms. New is an 83-year-old female, very pleasant. The patient, who has history of recurrent UTI, a history of diabetes mellitus. She is coming with fever and chills and not doing well. She also had abdominal pain. She is admitted on February 14, 2019, and she has been here since then. The patient is telling me she is well known to Dr. Bennett and she had a bladder cystoscopy done back in September. In September, apparently, she had UTI. She has been on several courses of oral antibiotics. She is coming now with abdominal pain, nausea, and vomiting. The patient was admitted. She was seen by GI. A urine culture showing multidrug-resistant pathogen, so I am asked to see her. She is telling me when she first came, she is having fever, abdominal pain, and there is urgency or frequency, but now she seems to be doing better. PAST MEDICAL HISTORY: Diabetes mellitus type 2, hypertension, and mechanical falls in the past. PAST SURGICAL HISTORY: Cystoscopy. ALLERGIES: NKA. SOCIAL HISTORY: There is no smoking, drug abuse, or alcohol abuse. FAMILY HISTORY: Otherwise noncontributory. REVIEW OF SYSTEMS: HEENT: Negative. PULMONARY: Negative. CARDIAC: Negative. : Negative. GI: Negative. SKIN: There are no other rashes. LABORATORY DATA: Her urine culture is showing E. coli ESBL, which was ESBL, but sensitive to Invanz, gentamicin, and meropenem. White count on admission was 11.77, came down to 5.98. Her sodium 137, potassium 3.9, and creatinine 0.83. PHYSICAL EXAMINATION: GENERAL: She is currently alert and oriented. Does not seem to be in acute distress. VITAL SIGNS: Stable. Currently afebrile. When she first came, she had a fever of 101.3. HEENT: Normocephalic. Not icteric. NECK: Supple. No JVD. No lymphadenopathy. No thyromegaly. CHEST: Clear bilateral. HEART: S1 and S2. No S3, S4, or murmur. ABDOMEN: Soft. Bowel sounds present. No tenderness. EXTREMITIES: No edema. SKIN: No rash. DIAGNOSTIC DATA: She had a CT scan, which showed mass-like 2 cm gastric mural thickening. The patient was seen by GI, Dr. Murali Gonzalez and she did go EGD, which showed distal esophagitis with hiatal hernia and gastritis. IMPRESSION: 1. I think the patient had urinary tract infection, pyelonephritis on admission. Agree with meropenem 500 IV q.8, plan on 14 days. We will get a PICC line. 2. History of recurrent urinary tract infection. We will discuss with Dr. Bennett and consider consultation and follow up with him. 3. Discussed with the patient. We will follow. MD ITZ Gold/ANAHI /[id number]
[2019-02-16] MEDS: ENOXAPARIN 30 MG/0.3 ML SYR SC SCH (16:57)
--- NOTE | 2019-02-16 19:22 | NUR ---
Bedside report and walking rounds complete. Pt A&O, resting in bed and in no apparent distress. All safety measures ensured and pt call house near. Pt encouraged to use call house for assistance.
[2019-02-16] MEDS: SIMVASTATIN 20 MG TAB PO SCH (21:35)
[2019-02-17] VITALS (7 sets, daily range): BP systolic 124–164; BP diastolic 59–69
[2019-02-17] MEDS: MEROPENEM 500MG/ NS 50ML 50 ML IV SCH ×4 (00:31→17:08)
[2019-02-17 06:40] LABS: BASOPHILS % 0.5 % (0.0-1.0); EOSINOPHILS # (AUTO) 0.4 (0.0-0.4); EOSINOPHILS % 5.9 % (0.0-6.0); HEMATOCRIT 30.1 % (34.2-44.1); HEMOGLOBIN 9.5 g/dL (12.0-16.0); LYMPHOCYTES # (AUTO) 2.2 (1.0-3.2); LYMPHOCYTES % 29.7 % (18.0-39.1); MEAN CORPUSCULAR HEMOGLOBIN 27.7 pg (28-32); MEAN CORPUSCULAR HGB CONC 31.6 g/dL (31-35); MEAN CORPUSCULAR VOLUME 87.8 fL (81-99); MONOCYTES # (AUTO) 0.6 (0.2-0.8); MONOCYTES % 7.8 % (4.4-11.3); NEUTROPHILS # (AUTO) 4.2 (2.1-6.9); NEUTROPHILS % 55.8 % (38.7-80.0); PLATELET COUNT 276 x10e3/uL (140-360); RED BLOOD COUNT 3.43 x10e6/uL (3.6-5.1); RED CELL DISTRIBUTION WIDTH 13.8 % (11.7-14.4)
[2019-02-17 07:05] LABS: ANION GAP 11.9 mmol/L (8-16); BLOOD UREA NITROGEN 8 mg/dL (7-26); BUN/CREATININE RATIO 10 (6-25); CALCIUM 9.8 mg/dL (8.4-10.2); CARBON DIOXIDE 28 mmol/L (22-29); CHLORIDE 103 mmol/L (98-107); CREATININE, SERUM 0.84 mg/dL (0.57-1.11); EST GLOMERULAR FILTRATION RATE > 60 ML/MIN (60-); GLUCOSE 95 mg/dL (74-118); POTASSIUM 3.9 mmol/L (3.5-5.1); SODIUM 139 mmol/L (136-145)
--- NOTE | 2019-02-17 07:07 | NUR ---
Bedside report/Walking rounds complete with day shift RN.
[2019-02-17] MEDS: INSULIN REGULAR, HUMAN 100 UNIT/1 ML 3ML VIAL SQ SCH ×4 (07:30→21:00)
[2019-02-17] MEDS: QUINAPRIL HCL 20 MG TAB PO SCH (08:20)
[2019-02-17] MEDS: PANTOPRAZOLE 40 MG 10ML VIAL IV SCH ×2 (08:20→21:08)
--- NOTE | 2019-02-17 12:03 | NUR ---
Received order for home IV abx. CM spoke to pt at bedside. Pt states that she previously used [facility] and is fine with using them again. Pt was concerned about not being able to administer the medications herself. CM explained to pt that they can place extension on PICC and infusion company and home health company can provide teaching on how to administer medications. Pt states she will get someone to help her if needed. Choice letter signed and placed in chart for [facility]. Copy to pt. IMM letter delivered and explained to pt. She verbalized understanding. Signed copy placed in chart. Copy to pt. Referral was faxed to [facility] at [phone] / . Debora Cottrell with [facility] was notified of referral and informed her discharge pending IV abx arrangement. SANCHEZ also updated Gina Morley with [facility] of need for IV abx. Updated order faxed to [facility] at [phone] /
--- NOTE | 2019-02-17 13:15 | Progress Note ---
DATE: 02/17/2019 Medicine Progress Note SUBJECTIVE: The patient is doing well today with no complaints. We are arranging for a PICC line and hope to get IV antibiotics arranged for home. She has no complaints at this time. PHYSICAL EXAMINATION: VITAL SIGNS: Temperature 96.3, pulse 67, respiratory rate is 20, blood pressure 134/61, pulse ox 99% on room air. GENERAL: Not in acute distress. Alert and oriented x3. Cooperative on examination. HEENT: Head; normocephalic, atraumatic. Eyes; pupils are equal, round, and reactive to light bilaterally. Extraocular movements are intact bilaterally. Throat; no evidence of erythema or exudates in the posterior pharynx. Has poor dentition. NECK: Supple. Good range of motion. PULMONARY: Clear to auscultation bilaterally. No wheezing, no rales, no rhonchi, no crackles appreciated. CARDIOVASCULAR: Positive S1 and S2. No murmurs, rubs, or gallops appreciated. ABDOMEN: Soft, nondistended, and nontender to palpation. Bowel sounds present. MUSCULOSKELETAL: Strength is 5/5 throughout. No evidence of any muscle deficits on examination. No weakness appreciated. NEUROLOGIC: Cranial nerve II through XII grossly intact. No evidence of any neurological deficits on exam. SKIN: Intact. Warm to touch. Good cap refill. PSYCHIATRIC: Normal affect and mood. EXTREMITIES: No edema. Good range of motion throughout. LABORATORY DATA: lab findings show white count 7.4, hemoglobin 9.5, hematocrit is 30, platelets of 276. Chemistries; sodium 139, potassium 3.9, chloride 103, bicarb 28, anion gap 11, BUN is 8, and creatinine 0.84, glucose 95, calcium is 9.8. MICROBIOLOGY: ESBL E coli noted. IMAGING STUDIES: None. IMPRESSION: 1. Sepsis due to extended spectrum beta-lactamases Escherichia coli urinary tract infection with fever, leukocytosis-improving. 2. Mechanical fall secondary to urinary tract infection. 3. Type 2 diabetes and hypertension. 4. Abdominal pain, nausea, vomiting status post esophagogastroduodenoscopy performed on 02/15/2019, showed distal esophagitis with focal nodularity, hiatal hernia, in the GE junction, large hiatal hernia, gastritis and biopsies performed. PLAN: At this time, as per Infectious Disease, the patient will continue with IV Merrem for 2 total weeks. Home health order has been placed. The patient refused retirement facility placement. PICC line will be inserted today, arrangement for IV antibiotic for home is in process. She will continue with Protonix for the EGD findings. Urology was consulted as well. Follow recommendations by the consultants if arranged with IV antibiotics, likely discharge home possibly tomorrow. MD SARITA Shin/ANAHI /[id number]
--- NOTE | 2019-02-17 15:20 | NUR ---
double lumen PICC line placed, patent, pt tolerated well. Awaiting CXR results for placement.
--- NOTE | 2019-02-17 15:30 | Diagnostic Imaging Report ---
EXAM: CHEST XRAY LINE PLACEMENT DATE: 02/17/2019 2:42 PM INDICATION: Line placement COMPARISON: 02/13/2019 FINDINGS: There is been interval placement of a right-sided PICC line with catheter tip terminating over the mid SVC. The trachea is midline. The lungs are symmetrically expanded without evidence for focal consolidation, pneumothorax, or significant pleural effusion. The cardiomediastinal silhouette is stable in appearance. A moderate-sized hiatal hernia is again noted. No acute osseous abnormalities identified. IMPRESSION: Interval placement of a right-sided PICC line with tip in appropriate position. Signed by: Dr. Jorje Coppola MD on 02/17/2019 3:26 PM
--- NOTE | 2019-02-17 15:40 | NUR ---
Received call from Angelique, patient educator with [facility]. She has provided teaching to pt and family. Pt's niece will be helping her with administering medications. Angelique stated she instructed pt to call them when she discharges so they can deliver medications. CXR for PICC line faxed to [facility]. [facility] with [address], [address] [place] [address]
[2019-02-17] MEDS: ENOXAPARIN 30 MG/0.3 ML SYR SC SCH (17:08)
--- NOTE | 2019-02-17 17:35 | NUR ---
CM have not received response from Dr. Marshall regarding possible discharge. CM escalated to medical detail representative Dr. Alcala. Also informed CM director Tianna Collazo who left message for Dr. Marshall as well.
--- NOTE | 2019-02-17 18:19 | Progress Note ---
DATE: SUBJECTIVE: Ms. New is doing well. REVIEW OF SYSTEMS: HEENT: Negative. PULMONARY: Negative. CARDIAC: Negative. All systems within normal limit. PHYSICAL EXAMINATION: GENERAL: She is currently alert, oriented, does not seem to be in acute distress. VITAL SIGNS: Stable, afebrile. Temperature 97.7, heart rate is 62, respirations 18, blood pressure 124/59. HEENT: She is not icteric. NECK: Supple. No JVD. No lymphadenopathy. No thyromegaly. CHEST: Clear bilateral. HEART: S1, S2. No murmurs. ABDOMEN: Soft. Bowel sounds present. EXTREMITIES: No edema. IMPRESSION: Pyelonephritis, urinary tract infection with E coli ESBL. To continue meropenem, can change to 500 IV q.8, plan 14 days. PICC line is ordered and done. weekly CBC, weekly Chem panel. Follow up as an outpatient . MD ITZ Gold/ANAHI /[id number]
--- NOTE | 2019-02-17 18:27 | NUR ---
Pt unable to obtain ride tonight for possible discharge. MD notified regarding situation.
--- NOTE | 2019-02-17 19:28 | NUR ---
Patient received sitting up in bed. AAO x 4. Patient had no complaints of pain. Respirations even and non-labored. Safety measures implemented. Patient instructed to call for assistance when needed. Call light within reach.
[2019-02-17] MEDS: SIMVASTATIN 20 MG TAB PO SCH (21:08)
[2019-02-18] VITALS: BP 168/63
[2019-02-18] MEDS: MEROPENEM 500MG/ NS 50ML 50 ML IV SCH ×2 (00:04→05:53)
--- NOTE | 2019-02-18 00:05 | NUR ---
Dr. Andrew Gonzalez here to see patient . New order received to modify diet from "GI Soft" to "GI Soft --- vegetarian (No meat products) diet.
[2019-02-18 04:00] VITALS: BP 140/65
[2019-02-18] MEDS ORDERED: SODIUM CHLORIDE 0.9% 250ML 250 ML ONE (05:13)
--- NOTE | 2019-02-18 07:00 | NUR ---
RCD PT AT BED PT IS ALERT AND ORIENTED PT RESTING ON BEDIV PATENT BY SALINE FLUSH BED LOW AND LOCKED CALL LIGHT IN REACH
--- NOTE | 2019-02-18 07:00 | NUR ---
Walking rounds done. Patient resting comfortably. Shift report given to oncoming nurse.
[2019-02-18] MEDS: INSULIN REGULAR, HUMAN 100 UNIT/1 ML 3ML VIAL SQ SCH (07:30)
[2019-02-18 07:58] VITALS: BP 151/69
[2019-02-18 09:00] VITALS: BP 151/69
[2019-02-18] MEDS: PANTOPRAZOLE 40 MG 10ML VIAL IV SCH (09:00)
[2019-02-18] MEDS: QUINAPRIL HCL 20 MG TAB PO SCH (09:00)
[2019-02-18] MEDS ORDERED: PANTOPRAZOLE SO40 MG PO (09:28)
--- NOTE | 2019-02-18 09:53 | NUR ---
PT WENT HOME IN SAFE CONDITION WITH HER SISTER
--- NOTE | 2019-02-18 19:30 | Discharge Summary ---
FINAL DISCHARGE DIAGNOSES: 1. Sepsis with underlying extended-spectrum beta-lactamases Escherichia coli urinary tract infection with fever and leukocytosis, resolved, improved. 2. Mechanical fall secondary to underlying infection urinary tract infection. 3. Type 2 diabetes. 4. Hypertension. 5. Neurogenic bladder. 6. Abdominal pain, nausea, and vomiting, status post EGD on 02/15/2019, showed distal esophagitis with focal nodularity and hiatal hernia in the GE junction and large hiatal hernia, gastritis and biopsies performed. CONSULTANTS: GI and Infectious Disease. PHYSICAL EXAMINATION: VITAL SIGNS: Temperature is 97.4, pulse 58, respiratory rate is 16, blood pressure 151/69, and pulse ox 99% on room air. LABORATORY FINDINGS: Show white count 7.4, hemoglobin 9.5, hematocrit is 40, and platelets of 276. Coagulation; PT 14, INR 1.1, and PTT 36. Chemistry; sodium is 139, potassium is 3.9, chloride is 103, bicarbonate 28, anion gap of 11, BUN 8, and creatinine is 0.84. A1c is 5.7. Calcium is 9.8. Lactic acid 11, which was normal in this hospital. Total bilirubin is 0.7, AST 18, and ALT is 11. Troponins were negative x3. Albumin 4. Lipase level 11. Urinalysis concerning for UTI. Urine culture positive for ESBL E. coli. IMAGING STUDIES: Chest x-ray, no acute thoracic radiographic abnormality. Shows evidence of a gastric hiatal hernia. CT abdomen and pelvis shows mass-like 2 cm proximal gastric mural thickening, gastritis seen. Moderate gastric hiatal hernia. Moderate colonic stool burden, underlying constipation. Distal colonic diverticulosis without evidence of diverticulitis. Multiple bilateral renal cysts. The patient advised to follow up with land acquisition specialist as an outpatient for surveillance. She verbalized understanding. CT brain shows no acute posttraumatic intracranial hemorrhage. Otherwise negative CT brain. CT cervical spine, no acute fractures or dislocations. Hip x-ray was negative. HOSPITAL COURSE: An 83-year-old female, who came into the emergency room after having a mechanical fall that occurred at home. While here, the patient was found to have a urinary tract infection, was treated for underlying sepsis and UTI. Found to have a fever and leukocytosis. She maintained on broad-spectrum IV antibiotics. Her urine culture came back to be ESBL E. coli and started on IV Merrem. ID was consulted. PICC line was placed and 2 weeks of IV antibiotics was arranged for home via home health. This was recommended by the Infectious Disease doctor. While here, the patient also had episodes of abdominal pain, nausea, and vomiting, which was also an issue that she had at home as well. CT abdomen and pelvis concerning for gastric thickening, requiring a GI consultation. The patient underwent status post EGD on 02/15/2019, that showed distal esophagitis with focal nodularity and hiatal hernia in the GE junction, and a large hiatal hernia with gastritis and biopsies were performed. The patient was to continue with Protonix upon discharge and follow up with GI with results as well. The patient has a history of neurogenic bladder, in which Urology was consulted as well and she is to follow up with Dr. Bennett as an outpatient. On discharge, the patient will be sent home with IV antibiotics Merrem via home health for 2 weeks, oral Protonix as recommended by Infectious Disease and GI respectively. The patient was cleared for discharge by all consultants. On the day of discharge, vital signs were stable, labs reviewed and stable. The patient was seen and evaluated, and examined thoroughly on the day of discharge. No other complaints. The patient verbalized understanding and agrees to plan of care and followup appointment as an outpatient with the primary care physician in 1 week and the GI doctor and ID physician about 2 weeks' time. MEDICATIONS: See med reconciliation form. DISPOSITION: Home. CONDITION: Stable. DIET: Heart healthy. In the event of any worsening symptoms, the patient was advised to come back to the ED for further evaluation. Discharge summary took greater than 35 minutes. MD SARITA Shin/AZIZAL /[id number]
--- NOTE | 2019-02-19 16:09 | Consultation ---
DATE OF CONSULTATION: Urologic Consultation Consultation is called by Dr. Marshall. CHIEF UROLOGIC COMPLAINT AND REASON FOR CONSULTATION: Urinary incontinence and urinary tract infections. HISTORY OF PRESENT ILLNESS: Mrs. New is an 83-year-old female patient of mine, with a history of urinary incontinence, admitted with nausea, vomiting, and a fall. She has had urinary incontinence, leakage, and infections. Denied gross hematuria. PAST MEDICAL HISTORY: Hypertension, fall, anemia. Please see office chart for full review. MEDICATIONS: Please see MAR. ALLERGIES: NKDA. SOCIAL HISTORY: Denied smoking or drinking. FAMILY HISTORY: Denied urologic stones or malignancies. REVIEW OF SYSTEMS: Noncontributory, other than problems mentioned above for 12 organ systems. PHYSICAL EXAMINATION: GENERAL: Elderly female, in no acute distress. VITAL SIGNS: Currently, temperature 96.7, pulse 69, respirations 18, and blood pressure 134/89. HEENT: Sclerae icteric. NECK: Supple. BACK: Without costovertebral angle tenderness bilaterally. ABDOMEN: Soft, nontender, nondistended. No palpable mass. No palpable hernias. No palpable adenopathy. : Normal female genitalia. EXTREMITIES: No edema. NEURO: Moving all four extremities. PSYCH: Alert and mood appropriate. SKIN: Intact. Normal color. PERTINENT LABORATORY DATA: Sodium 137, potassium 3.9, chloride 104, bicarb 25, BUN 8, creatinine 0.8, glucose 105, hemoglobin 9.6, hematocrit 31, platelet count 271,000, white cell count 5980. PT of 14.7, and PTT 36.8. IMPRESSION: 1. Urinary incontinence. 2. Chronic urinary tract infections. 3. Anemia. 4. Hypertension. 5. Coagulopathy. PLAN: Urologically, the patient would benefit from outpatient followup and urodynamic studies. We will continue Kegels. Her urine is currently asymptomatic and she is admitted for a fall. We will follow as an outpatient. Defer coagulopathy, hypertension, and anemia to primary service. Thank you for allowing me to participate in the care of your patient. We will be happy to follow along with you. MD WILBERT Kaiser/ANAHI /[id number] cc: MD Slava Kaiser MD Maurice S Haddad, MD Zaher Shebib, MD
== END 2019-02-18 09:53 | disposition home or self-care (01) | DRG 872 ==
LOC: ER 16:23 → ERHOLD 21:01 → MED/SURG2 21:58
PROVIDERS: ADMIT Internal Medicine; ATTEND Internal Medicine
PROC: 0DB78ZX Excision of Stomach, Pylorus, Via Natural or Artificial Opening Endoscopic, Diagnostic (ICD-10-PCS; 2019-02-15)
PROC: 0DB48ZX Excision of Esophagogastric Junction, Via Natural or Artificial Opening Endoscopic, Diagnostic (ICD-10-PCS; principal; 2019-02-15 14:42)
PROC: 02HV33Z Insertion of Infusion Device into Superior Vena Cava, Percutaneous Approach (ICD-10-PCS; 2019-02-17)
DX: A41.51 Sepsis due to Escherichia coli [E. coli] (principal); D68.9 Coagulation defect, unspecified; N12 Tubulo-interstitial nephritis, not specified as acute or chronic; I10 Essential (primary) hypertension; E78.5 Hyperlipidemia, unspecified; Z16.12 Extended spectrum beta lactamase (ESBL) resistance; W19.XXXA Unspecified fall, initial encounter; E11.9 Type 2 diabetes mellitus without complications; N31.9 Neuromuscular dysfunction of bladder, unspecified; K20.9 Esophagitis, unspecified; K44.9 Diaphragmatic hernia without obstruction or gangrene; K57.30 Diverticulosis of large intestine without perforation or abscess without bleeding; R32 Unspecified urinary incontinence; D64.9 Anemia, unspecified; Z16.24 Resistance to multiple antibiotics; N28.1 Cyst of kidney, acquired
CPT/HCPCS: 36415; 36569; 43239; 70450; 71045; 72125; 73521; 74176; 80048; 80053; 81001; 82150; 82550; 82553; 82948; 83036; 83605; 83690; 83735; 83880; 84484; 85025; 85610; 85730; 87086; 87186; 88302; 88305; 88312; 93005; 99284; J0696; J1650; J1817; J2405; J7030; J7050

== ENCOUNTER → 2019-12-23 | Day surgery (SDC) | payer MEDICARE, OTHER ==
[2019-12-17 11:12] LABS: BASOPHILS # (AUTO) 0.1 (0.0-0.1); BASOPHILS % 0.6 % (0.0-1.0); EOSINOPHILS # (AUTO) 0.4 (0.0-0.4); EOSINOPHILS % 4.5 % (0.0-6.0); HEMATOCRIT 33.4 % (34.2-44.1); HEMOGLOBIN 10.2 g/dL (12.0-16.0); LYMPHOCYTES # (AUTO) 2.6 (1.0-3.2); LYMPHOCYTES % 31.4 % (18.0-39.1); MEAN CORPUSCULAR HEMOGLOBIN 27.9 pg (28-32); MEAN CORPUSCULAR HGB CONC 30.5 g/dL (31-35); MEAN CORPUSCULAR VOLUME 91.5 fL (81-99); MONOCYTES # (AUTO) 0.6 (0.2-0.8); MONOCYTES % 7.3 % (4.4-11.3); NEUTROPHILS # (AUTO) 4.6 (2.1-6.9); PLATELET COUNT 323 x10e3/uL (140-360); RED BLOOD COUNT 3.65 x10e6/uL (3.6-5.1)
[~2019-12-23] MED LIST changes: +LIDOCAINE HCL 2% LOCAL INJ 5 ML SDV VIAL INJ ONE; +PANTOPRAZOLE SO40 MG PO; +PROPOFOL IV EMULSION 10 MG/ML 20 ML VIAL ONE
[2019-12-23 08:30] VITALS: BP 154/71
== END | disposition home or self-care (01) ==
LOC: OR 06:20
PROVIDERS: ATTEND Internal Medicine Gastroenterology
DX: Z12.11 Encounter for screening for malignant neoplasm of colon (principal); Z86.010 Personal history of colon polyps; K57.30 Diverticulosis of large intestine without perforation or abscess without bleeding; K64.8 Other hemorrhoids; K21.9 Gastro-esophageal reflux disease without esophagitis; E11.9 Type 2 diabetes mellitus without complications; I10 Essential (primary) hypertension; E78.5 Hyperlipidemia, unspecified; M19.90 Unspecified osteoarthritis, unspecified site; F17.210 Nicotine dependence, cigarettes, uncomplicated; Z88.8 Allergy status to other drugs, medicaments and biological substances; Z91.041 Radiographic dye allergy status; Z01.810 Encounter for preprocedural cardiovascular examination; Z01.812 Encounter for preprocedural laboratory examination; Z11.59 Encounter for screening for other viral diseases; Z79.84 Long term (current) use of oral hypoglycemic drugs
CPT/HCPCS: 36415 ×2; 82948; 85025; 93005; G0121; J2001; J2704; U0002; 45378

== ENCOUNTER 2022-02-12 09:31 | Emergency (ER) | payer MEDICARE ==
[~2022-02-12] VITALS: Ht 157.5 cm; Wt 55.3 kg
[~2022-02-12 09:31] MED LIST changes: -LIDOCAINE HCL 2% LOCAL INJ 5 ML SDV VIAL INJ ONE; -PROPOFOL IV EMULSION 10 MG/ML 20 ML VIAL ONE
[2022-02-12 10:49] LABS: CLARITY,URINE TURBID (CLEAR); COLOR,URINE RED (YELLOW)
[2022-02-12 10:50] LABS: KETONES,URINE NEGATIVE (NEGATIVE); LEUKOCYTE ESTERASE ,URINE TRACE (NEGATIVE); NITRITE,URINE NEGATIVE (NEGATIVE); PROTEIN,URINE DIPSTICK >=300 (NEGATIVE); URINE UROBILINOGEN 0.2 mg/dL (0.2 - 1)
[2022-02-12 11:24] LABS: BACTERIA,URINE MANY /HPF; EPITHELIAL CELLS,URINE RARE /LPF
[2022-02-12 11:26] LABS: RBC,URINE >50 /HPF (0-5)
[2022-02-12 11:27] LABS: TRIPLE PHOSPHATE CRYSTAL,UR FEW (FEW)
[2022-02-12] MEDS ORDERED: CEFTRIAXONE 1 GM VIAL IM ONE (12:15)
[2022-02-12] MEDS ORDERED: CEFUROXIME250 MG PO (12:50)
[2022-02-12] MEDS ORDERED: MACROBID 100 M100 MG PO (12:53)
[2022-02-12 13:06] VITALS: BP 110/77
== END 2022-02-12 13:11 | disposition home or self-care (01) ==
LOC: ER 09:40
DX: N39.0 Urinary tract infection, site not specified (principal); I10 Essential (primary) hypertension; E11.9 Type 2 diabetes mellitus without complications; Z87.440 Personal history of urinary (tract) infections; Z88.8 Allergy status to other drugs, medicaments and biological substances; Z91.041 Radiographic dye allergy status
CPT/HCPCS: 81001; 87086; 99283; J0696; 87186

== ENCOUNTER 2023-08-11 17:15 | Emergency (ER) | payer MEDICARE ==
[~2023-08-11] VITALS: Ht 157.5 cm; Wt 55.3 kg
[~2023-08-11 17:15] MED LIST changes: +CEFUROXIME250 MG PO; +MACROBID 100 M100 MG PO
[2023-08-11] MEDS: CYCLOBENZAPRINE HCL 10 MG TAB PO ONE (18:00)
[2023-08-11] MEDS: IBUPROFEN 400 MG TAB PO ONE (18:01)
[2023-08-11] MEDS ORDERED: CYCLOBENZAPRINE10 MG PO (19:44)
[2023-08-11 19:58] VITALS: O2SAT 98
== END 2023-08-11 20:25 | disposition home or self-care (01) ==
LOC: ER 17:23
DX: M48.54XA Collapsed vertebra, not elsewhere classified, thoracic region, initial encounter for fracture (principal); M62.838 Other muscle spasm; I10 Essential (primary) hypertension; E11.9 Type 2 diabetes mellitus without complications; E78.5 Hyperlipidemia, unspecified
CPT/HCPCS: 72125; 72128; 99283

== ENCOUNTER 2024-12-20 05:43 | Inpatient (IN) | payer MEDICARE ==
[~2024-12-20] VITALS: Ht 154.9 cm; Wt 55.8 kg
[~2024-12-20 05:43] MED LIST changes: +ALREX5 ML OP; +CYCLOBENZAPRINE10 MG PO; +ESTRACE42.5 GM VG; +GUAIFENESIN-DM 15 M1; +HYDROCODON-ACE1 EA11 PO; +MAALOX MAXIMUM355 ML PO; +MIDODRINE HCL5 MG PO; +MILK OF MA2400 MG/10 PO; +MIRALAX17 GM PO; +SENOKOT-S TABL1 EACH PO; +SIMVASTATIN20 MG PO; +TYLENOL EXTRA500 MG PO; +VOLTAREN ARTHRI20 GM; +ZESTRIL10 MG PO
[2024-12-20] MEDS: SODIUM CHLORIDE 0.9% 1000ML 1,000 ML ONE (06:17)
[2024-12-20] MEDS: GENTAMICIN 80MG/NS 100 ML 200 ML IV ONE (06:17)
[2024-12-20] MEDS: CLINDAMYCIN 600MG / 50ML 50 ML IV ONE (06:17)
[2024-12-20] MEDS: PIPERACILLIN/TAZOBACTAM 3.375 GM VIAL ONE (06:17)
[2024-12-20 06:27] LABS: BASOPHILS % 0.7 % (0.0-1.0); EOSINOPHILS % 8.5 % (0.0-6.0); LYMPHOCYTES % 33.0 % (18.0-39.1); MONOCYTES % 7.2 % (4.4-11.3); NEUTROPHILS % 50.5 % (38.7-80.0); RED CELL DISTRIBUTION WIDTH 13.3 % (11.7-14.4)
[2024-12-20] MEDS ORDERED: PROPOFOL IV EMULSION 10 MG/ML 20 ML VIAL ONE (06:34)
[2024-12-20] MEDS ORDERED: ROCURONIUM BROMIDE 1 ML IV ONE ×2 (06:34→08:19)
[2024-12-20] MEDS ORDERED: SUGAMMADEX SODIUM 200 MG/2 ML VIAL IV ONE (06:35)
[2024-12-20] MEDS ORDERED: SODIUM CHLORIDE 0.9% 100 ML ONE ×2 (06:35→06:37)
[2024-12-20] MEDS ORDERED: DEXMEDETOMIDINE HCL 2 ML ONE (06:36)
[2024-12-20] MEDS ORDERED: FENTANYL CITRATE/PF 100MCG/2 ML INJ ONE (06:36)
[2024-12-20] MEDS ORDERED: DEXAMETHASONE SOD PHOS INJ 4 MG/ML SDV ONE (06:36)
[2024-12-20] MEDS ORDERED: GLYCOPYRROLATE INJ 0.2 MG/ML VIAL ONE (06:36)
[2024-12-20 07:03] LABS: EST GLOMERULAR FILTRATION RATE 44.0 ML/MIN (>=60)
[2024-12-20] MEDS ORDERED: SILVER SULFADIAZINE 25 GM CREAM..G. TP ONE (07:49)
[2024-12-20] MEDS ORDERED: HYDRALAZINE HCL 20 MG/ML VIAL ONE (09:15)
[2024-12-20] MEDS ORDERED: PHENAZOPYRIDINE HCL 100 MG TAB PO PRN (10:30)
[2024-12-20] MEDS ORDERED: DIPHENHYDRAMINE HCL 25 MG CAP PO PRN (10:30)
[2024-12-20] MEDS ORDERED: ONDANSETRON HCL INJ 2MG/ML 2ML 2 MG/ML VIAL IV PRN (10:30)
[2024-12-20 10:46] LABS: BASOPHILS % 0.4 % (0.0-1.0); EOSINOPHILS % 3.4 % (0.0-6.0); LYMPHOCYTES % 17.4 % (18.0-39.1); MONOCYTES % 2.5 % (4.4-11.3); NEUTROPHILS % 75.8 % (38.7-80.0); RED CELL DISTRIBUTION WIDTH 13.3 % (11.7-14.4)
[2024-12-20 11:10] LABS: EST GLOMERULAR FILTRATION RATE 47.0 ML/MIN (>=60)
[2024-12-20 11:45] VITALS: BP 126/71; PULSE 91; RESP 14; TEMP 97.4; O2SAT 100
[2024-12-20 11:46] VITALS: BP 131/57; PULSE 88; RESP 17; TEMP 98.6; O2SAT 96
[2024-12-20] MEDS: SODIUM CHLORIDE 0.9% 1000ML 1,000 ML IV SCH (12:30)
[2024-12-20] MEDS: ACETAMINOPHEN 1000 MG/100 ML IV PRN (12:44)
[2024-12-20 15:42] VITALS: BP 121/53; PULSE 80; RESP 20; TEMP 98.6; O2SAT 100
[2024-12-20] MEDS ORDERED: SENNA-S TABLET PO SCH (17:00)
[2024-12-20 19:12] VITALS: BP 121/69; PULSE 70; RESP 17; TEMP 97.8; O2SAT 98
[2024-12-20 20:00] VITALS: BP 121/69; PULSE 70; RESP 17; TEMP 97.8; O2SAT 98
[2024-12-20] MEDS: SENNA-S TABLET PO SCH (21:45)
[2024-12-20 23:12] VITALS: BP 121/54; PULSE 77; RESP 17; TEMP 97.2; O2SAT 96
[2024-12-21] VITALS (7 sets, daily range): BP systolic 117–143; BP diastolic 47–72; PULSE 75–102; RESP 16–20; TEMP 97.2–98; O2SAT 95–99
[2024-12-21 05:17] LABS: BASOPHILS % 0.2 % (0.0-1.0); EOSINOPHILS % 0.0 % (0.0-6.0); LYMPHOCYTES % 10.3 % (18.0-39.1); MONOCYTES % 7.0 % (4.4-11.3); NEUTROPHILS % 82.0 % (38.7-80.0); RED CELL DISTRIBUTION WIDTH 13.6 % (11.7-14.4)
[2024-12-21 05:44] LABS: EST GLOMERULAR FILTRATION RATE 47.0 ML/MIN (>=60)
[2024-12-21] MEDS: ACETAMINOPHEN/CODEINE 300MG - 30MG TAB PO PRN (07:08)
[2024-12-21] MEDS: PANTOPRAZOLE SOD 40 MG TABEC PO SCH (09:13)
[2024-12-21] MEDS: GUAIFENESIN/CODEINE 5 ML LIQD PO PRN (16:10)
[2024-12-22 08:15] VITALS: BP 117/51; PULSE 80; RESP 16; TEMP 98; O2SAT 98
[2024-12-22 08:21] LABS: BASOPHILS % 0.3 % (0.0-1.0); EOSINOPHILS % 1.0 % (0.0-6.0); LYMPHOCYTES % 20.4 % (18.0-39.1); MONOCYTES % 8.4 % (4.4-11.3); NEUTROPHILS % 69.4 % (38.7-80.0); RED CELL DISTRIBUTION WIDTH 13.7 % (11.7-14.4)
[2024-12-22 08:34] VITALS: BP 117/51; PULSE 80; RESP 16; TEMP 98.6; O2SAT 98
[2024-12-22 09:19] LABS: EST GLOMERULAR FILTRATION RATE 47.0 ML/MIN (>=60)
[2024-12-22 11:31] VITALS: BP 118/54; PULSE 88; RESP 16; TEMP 98.9; O2SAT 98
[2024-12-22 15:42] VITALS: BP 128/54; PULSE 89; RESP 16; TEMP 97.3; O2SAT 98
[2024-12-22 20:00] VITALS: BP 109/51; PULSE 85; RESP 17; TEMP 98.6; O2SAT 97
[2024-12-22 20:02] VITALS: PULSE 89; RESP 16; O2SAT 96
[2024-12-23] VITALS: BP 116/63; PULSE 84; RESP 18; TEMP 98.6; O2SAT 97
[2024-12-23 04:00] VITALS: BP_SYST 126; BP_SYST 129; BP_DIAS 56; BP_DIAS 62; PULSE 85; PULSE 88; RESP 17; RESP 18; TEMP 99.4; O2SAT 97; O2SAT 98
[2024-12-23 05:34] LABS: BASOPHILS % 0.3 % (0.0-1.0); EOSINOPHILS % 2.6 % (0.0-6.0); LYMPHOCYTES % 17.3 % (18.0-39.1); MONOCYTES % 8.5 % (4.4-11.3); NEUTROPHILS % 70.9 % (38.7-80.0); RED CELL DISTRIBUTION WIDTH 13.5 % (11.7-14.4)
[2024-12-23 06:03] LABS: EST GLOMERULAR FILTRATION RATE 49.0 ML/MIN (>=60)
[2024-12-23 10:26] VITALS: PULSE 85; RESP 16; O2SAT 97
[2024-12-23 11:40] VITALS: BP 111/54; PULSE 95; RESP 17; TEMP 98.4; O2SAT 96
== END 2024-12-23 12:58 | DRG 748 ==
LOC: OR 05:43 → PACU V 10:28 → MED/SURG 11:36
PROVIDERS: ADMIT Internal Medicine; ATTEND Internal Medicine
PROC: 0TSD0ZZ Reposition Urethra, Open Approach (ICD-10-PCS; 2024-12-20)
PROC: 0TUD0KZ Supplement Urethra with Nonautologous Tissue Substitute, Open Approach (ICD-10-PCS; 2024-12-20)
PROC: 0TBB8ZX Excision of Bladder, Via Natural or Artificial Opening Endoscopic, Diagnostic (ICD-10-PCS; 2024-12-20)
PROC: 0T9B70Z Drainage of Bladder with Drainage Device, Via Natural or Artificial Opening (ICD-10-PCS; 2024-12-20)
PROC: BT141ZZ Fluoroscopy of Kidneys, Ureters and Bladder using Low Osmolar Contrast (ICD-10-PCS; 2024-12-20)
PROC: 0JUC0KZ Supplement of Pelvic Region Subcutaneous Tissue and Fascia with Nonautologous Tissue Substitute, Open Approach (ICD-10-PCS; principal; 2024-12-20 07:00)
PROC: 02HV33Z Insertion of Infusion Device into Superior Vena Cava, Percutaneous Approach (ICD-10-PCS; 2024-12-23)
DX: N81.10 Cystocele, unspecified (principal); Z16.12 Extended spectrum beta lactamase (ESBL) resistance; N39.0 Urinary tract infection, site not specified; T83.198A Other mechanical complication of other urinary devices and implants, initial encounter; R31.29 Other microscopic hematuria; N39.3 Stress incontinence (female) (male); I10 Essential (primary) hypertension; I95.1 Orthostatic hypotension; R33.9 Retention of urine, unspecified; N32.0 Bladder-neck obstruction; B96.20 Unspecified Escherichia coli [E. coli] as the cause of diseases classified elsewhere; K21.9 Gastro-esophageal reflux disease without esophagitis; M19.90 Unspecified osteoarthritis, unspecified site; Y84.8 Other medical procedures as the cause of abnormal reaction of the patient, or of later complication, without mention of misadventure at the time of the procedure
CPT/HCPCS: 36415; 36569; 71045; 71046; 74420; 80048; 80053; 82948; 83735; 85025; 87086; 87186; 88305; 93005; 94799; C1758; C1762; J0360; J1100; J1580; J2185; J2470; J2543; J7030; J7050